=== PATIENT | female | born 1965 | race Caucasian/White ===

== ENCOUNTER 2022-04-01 16:29 | Emergency (ER) | payer OTHER, SELFPAY ==
--- NOTE | ~2022-04-01 | XR_ITS ---
EXAMINATION: XR FOOT, RIGHT CLINICAL INFORMATION: Toe pain COMPARISON: None TECHNIQUE: AP, lateral, and oblique views of the right foot. FINDINGS: The bones and soft tissues are normal. No fracture. Alignment is anatomic. Joint spaces are maintained. XR/XR foot RT 2V IMPRESSION: No acute osseous abnormality of the right foot
[2022-04-01 17:23] VITALS: BP 106/69; PULSE 86; RESP 18; TEMP 36.6; O2SAT 96; BMI 31.4
[2022-04-01] MEDS: Acetaminophen 325 MG TABLET 650 MG PO (17:32)
--- NOTE | 2022-04-01 19:24 | ED_ITS ---
HPI - Extremity Injury (Lower) General Chief Complaint: Extremity Injury, Lower Stated Complaint: ?Toe infection Time Seen by Provider: 04/01/22 19:21 Source: patient Mode of arrival: ambulatory Limitations: no limitations History of Present Illness HPI Narrative: This is a 56-year-old female presenting with redness and swelling around the right great toe, patient reports that the area has become red hot and swollen ever since yesterday. She reports that there is some pus around the nail, she tells me that she gets ingrown toenails. Also concerned because she is a diabetic. Denies fevers, chills, numbness, tingling, chest pain, shortness of breath, headache, dizziness, vision changes. Related Data Previous Rx's Medication Instructions Recorded cephalexin 500 mg tablet 500 mg PO Q6H 10 days #40 tabs 04/01/22 doxycycline hyclate 100 mg capsule 100 mg PO BID 10 days #20 caps 04/01/22 Allergies Allergy/AdvReac Type Severity Reaction Status Date / Time morphine Allergy Vomiting Verified 04/01/22 17:22 Penicillins Allergy Headache Verified 04/01/22 17:22 Review of Systems Review of Systems: Constitutional : No Weight loss, No Fever, No Chills, No Fatigue, No Malaise ENT/Mouth : No sore throat, No Rhinorrhea Eyes: No Eye Pain, No Swelling, No Redness Cardiovascular : No Chest Pain, No SOB, No Dyspnea on Exertion, No Orthopnea, No Edema, No Palpitations Respiratory : No Cough, No Sputum, No Wheezing Gastrointestinal : No Nausea, No Vomiting, No Diarrhea, No Constipation, No abdominal Pain, No Hematochezia, No Melena Genitourinary : No Dysuria, No Urinary Frequency, No Hematuria, Musculoskeletal : No joint pain, No Myalgias, No Joint Swelling Skin : No Skin Lesions, No rash, + redness of skin to toe Neuro : No Weakness, No Numbness, No Dizziness, No Headache Psych : No Anxiety/Panic, No Depression All other systems reviewed and are negative Yes all other systems are reviewed and are negative [facility] Past Medical History Attestation statement: The following information was validated with the patient. Source: old records reviewed and nursing notes reviewed Social History Social History Advance Directives: No Advance Directives Information Provided: No Physical Exam Vital Signs: Vital Signs: Last Vital Signs Temp 97.8 F 04/01/22 17:23 Pulse 86 04/01/22 17:23 Resp 18 04/01/22 17:23 BP 106/69 04/01/22 17:23 Pulse Ox 96 04/01/22 17:23 O2 Del Method 04/01/22 17:23 BMI result Body Mass Index 31.4 vss Appearance: Alert.? Oriented X3.? No acute distress.? Head: Normocephalic, atraumatic, no step-offs or deformities Eyes: Pupils equal, round and reactive to light.? CVS: Normal heart rate and rhythm.? Pulses normal.? Respiratory: No respiratory distress.? Breath sounds normal.? Abdomen: Soft and nontender.? Skin: Skin warm and dry.? Normal skin color.? Normal skin turgor.? Extremities: No lower extremity edema.? No calf ttp. 5/5 strength to bilateral upper and lower extremities 2+ DP,AT,PT pulses equal and bilater. + paronychia noted to right lower great toe, with overlying cellulitis. No evidence of abscess. Normal left foot. Full range of motion to all lower extremity toes. Normal sensation. Neuro: Oriented X 3.? No motor deficit.? No sensory deficit. CN 2-12 intact Course Reevaluation(s) Reevaluation #1: X-ray of the foot with no osseous abnormalities were of right foot no signs of osteomyelitis. At this time patient will be discharged home on 2 antibiotics Keflex and doxycycline advised to return with new or worsening symptoms, edu cated on worrisome signs and symptoms, verbalizes understanding. At this time I feel comfortable discharge home. Time: 19:25 MDM - Extremity Injury (Lower) [facility] Narrative Medical decision making narrative: 1925 56-year-old female presents with redness and swelling to the 1st great toe on the right. X2 days. Patient diabetic. Physical exam with paronychia an overlying cellulitis to the right great toe. Neurovascularly intact. History and physical examination consistent with cellulitis and paronychia. Unlikely that this is septic joint, osteomyelitis, DVT, arterial occlusion. Plan at this time is to obtain an x-ray. Medical Records Attestation: I reviewed the patient's medical records. Lab Data Attestation: I reviewed the patient's lab results. Critical Care Time Critical Care Time Critical Care Time: No Discharge Plan Discharge Clinical Impression: Acute paronychia of toe, Cellulitis Patient Disposition: Home, Self-Care Instructions: Paronychia (ED), Cellulitis (ED) Additional Instructions: Take your medications as prescribed. If you were prescribed antibiotics today, it is important that you take your medication to their entirety, do not skip any doses, do not finish them early. Follow-up with your primary care provider this week. Return to the emergency department with new or worsening symptoms. Such as fevers, chills, chest pain, shortness of breath, nausea, vomiting, dizziness, headache, vision changes, lethargy In case of emergency call 911 I educated on signs of infection such as worsening swelling, pain, redness, discharge, bleeding, if any of these arise you need to come to the emergency department for further evaluation and treatment. Your x-ray was reassuring. Apply warm compresses to the area do not touch the area. Since you are a diabetic I highly recommend you follow-up with Podiatry, it is important that you see them be careful cutting your own nails this can cause infections of you cut the skin. [place] [facility]ament[facility] seg?n lo prescrito. Si le recetaron antibi?ticos hoy, es importante que tome snow medicamento en snow totalidad, no se salte ninguna dosis, no los termine antes de tiempo. Seguimiento con snow proveedor de atenci?n primaria esta semana. Regrese al departamento de emergencias con s?ntomas nuevos o que empeoran. Mario fiebre, escalofr?os, dolor de pecho, dificultad para respirar, n?useas, v?mitos, mareos, dolor de nikolas, cambios en la visi?n, letargo En alvaro de emergencia llama al 911 Me educaron sobre los signos de infecci?n, mario el empeoramiento de la hinchaz?n, el dolor, el enrojecimiento, la secreci?n, el sangrado. Si surge alguno de estos, debe acudir al departamento de emergencias para desmond evaluaci?n y tratamiento adicionales. Tu radiograf?a fue tranquilizadora. Aplique compresas tibias en el ?sp, no toque el ?sp. Ya que usted es diab?ama le recomiendo que viviana un seguimiento con Podolog?a, es importante que los gita tenga cuidado al cortarse las u?as, esto puede causar infecciones en la piel. XR/XR foot RT 2V IMPRESSION: No acute osseous abnormality of the right foot Prescriptions: New doxycycline hyclate 100 mg capsule 100 mg PO BID 10 Days Qty: 20 0RF cephalexin 500 mg tablet 500 mg PO Q6H 10 Days Qty: 40 0RF Referrals: Physician,Zahira J [Primary Care Provider] - 2 days
--- OUTSIDE RECORDS SUMMARY | 2022-04-01 19:35 | XMS_ITS | Continuity of Care Document ---
:1965 Author Organization [facility] Address [address] [place] [address]- Care Team Providers Name Role Phone Zulay Peña Primary Care Physician Encounter [facility] [place] Date(s): 07/11/19 - 07/18/19 [facility] [address] [place] [address]- [facility] Attending Physician: Juan Antonio Paulson MD Referring Physician: Zulay Peña Allergies, Adverse Reactions, Alerts Substance Reaction Severity Status penicillin [D]Nausea Active morphine Dizziness/Vertigo Active Medications albuterol 90 mcg/inh inhalation powder 2 puffs, Inhalation, Every 6 hours, PRN as needed, # 1 each, 0 Refills, Maintenance, 06/16/19 11:18:00 EST, Powder, [facility] #[id number], 2 puffs Inhalation Every 6 hours,PRN:as needed, 158, cm,06/16/19 10:59:00 EST, Height, 81.8, kg, 06/16/19... Start Date: 06/16/19 Status: Orderedalbuterol CFC free 90 mcg/inh inhalation aerosol 2, puffs, Inhalation, Every 4 hours, PRN, # 1 each, Refills 0, Tot. Refills 0, Maintenance, 05/03/1912:15:50 EST, Aerosol, Route to Pharmacy Electronically, [id number], [facility] #[id number] Start Date: 05/03/19 Stop Date: 05/17/19 Status: Orderedalbuterol CFC free 90 mcg/inh inhalation aerosol 2, puffs, Inhalation, Every 4 hours, PRN, # 1 each, Refills 0, Tot. Refills 0, Maintenance, 05/31/1911:47:00 EST, Aerosol, Route to Pharmacy Electronically, [id number], [facility] #[id number], 158, cm, 05/31/19 11:15:00... Start Date: 05/31/19 Stop Date: 06/07/19 Status: Orderedalbuterol-ipratropium 3 mg-0.5 mg/3 ml inhalation solution 3 mL, Inhalation, 4 times a day, # 30 each, 0 Refills, Maintenance, 06/16/19 11:19:00 EST, Solution,[facility] #[id number], 3 mL Inhalation 4 times a day, 158, cm, 06/16/19 10:59:00 EST, Height, 81.8, kg, 06/16/19 10:59:00 EST, Dry Weight Start Date: 06/16/19 Status: Orderedalbuterol-ipratropium 3 mg-0.5 mg/3 ml inhalation solution 3 mL, Inhalation, 4 times a day, PRN Wheezing/Shortness of Breath, # 30 each, 0 Refills, Maintenance, 12/24/18 12:18:48 EDT, Solution, 3 mL Inhalation 4 times a day,PRN:Wheezing/Shortness of Breath Start Date: 12/24/18 Status: Orderedatorvastatin 40 mg oral tablet 1 tablet = 40 mg, By Mouth, Daily, # 30 tablet, 5 Refills, Maintenance, 07/16/19 13:29:00 EST, Tablet, [facility] #[id number], 158, cm, 07/11/19 10:20:00 EST, Height, 81.8, kg, 06/16/19 10:59:00 EST, Dry Weight Start Date: 07/16/19 Status: Orderedfluocinonide 0.05% topical cream 1 applicator, Topically, 3 times a day, apply a thin film to affected area, # 15 Gm, 0 Refills, Maintenance, 12/24/18 12:19:41 EDT, 1 applicator Topically 3 times a day,Instr:apply a thin film; to affected area Start Date: 12/24/18 Status: Orderedinsulin glargine 100 u/ml subcutaneous solution See Instructions, 40 units Subcutaneous Injection Daily, # 15 mL, 2 Refills, Maintenance, 07/16/19 15:18:00 EST, Solution, [facility] #[id number], 158, cm, 07/11/19 10:20:00 EST, Height, 81.8, kg,06/16/19 10:59:00 EST, Dry Weight Start Date: 07/16/19 Status: Orderedinsulin lispro 100 u/ml subcutaneous injection See Instructions, 2 to 10 units Subcutaneous Injection 3 times a day before meals, 0 Refills, Maintenance, 08/05/18 14:39:41 EST, Solution Start Date: 08/05/18 Status: OrderedJanuvia 100 mg oral tablet 1 tablet = 100 mg, By Mouth, Daily, # 30 tablet, 3 Refills, Maintenance, 05/21/19 14:12:33 EST, Tablet, 158, cm, 05/03/19 11:23:20 EST, Height, 77.2, kg, 05/03/19 11:23:20 EST, Dry Weight Start Date: 05/21/19 Status: OrderedLantus 100 u/ml subcutaneous solution See Instructions, Subcutaneous Infusion Daily rotate injection sites, # 15 mL, 0 Refills, Maintenance, 07/16/19 13:29:00 EST, [facility] #[id number], 158, cm, 07/11/19 10:20:00 EST, Height, 81.8, kg, 06/16/19 10:59:00 EST, Dry Weight Start Date: 07/16/19 Status: OrderedLantus Solostar Pen 100 units/mL subcutaneous solution 70 unit, Subcutaneous Infusion, Daily, # 15 mL, 11 Refills, Maintenance, 07/18/19 9:56:00 EST, [facility] #[id number], 158, cm, 07/11/19 10:20:00 EST, Height, 81.8, kg, 06/16/19 10:59:00 EST, Dry Weight Start Date: 07/18/19 Status: Orderedlisinopril 5 mg oral tablet 1 tablet = 5 mg, By Mouth, Daily, 0 Refills, Maintenance Start Date: 06/25/13 Status: Ordered Vital Signs Most recent to oldest [Reference Range]: 1 Height 158 cm (07/11/19 10:20 AM) Oxygen Saturation [94-100 %] 100 % (07/11/19 10:20 AM) Pulse Rate [55-90 bpm] 98 bpm *H* (07/11/19 10:20 AM) Blood Pressure [90-138/55-84 mm Hg] 123/86 mm Hg (07/11/19 10:20 AM) Respiratory Rate [16-30 br/min] 20 br/min (07/11/19 10:20 AM) Temperature [96.8-100.4 DegF] 97.8 DegF (07/11/19 10:20 AM) Mode of Delivery (Oxygen) Room air (07/11/19 10:20 AM) Blood pressure sites Arm, left (07/11/19 10:20 AM) Temperature Route Oral (07/11/19 10:20 AM) Weight Obtained Via Standing scale (07/11/19 10:20 AM) Dry Weight Obtained Via Standing scale (07/11/19 10:20 AM) Social History Social History Type Response Smoking Status Never (less than 100 in life time) entered on: 08/05/18 Sex
--- OUTSIDE RECORDS SUMMARY | 2022-04-01 19:35 | XMS_ITS | Continuity of Care Document ---
:1965 Author Organization [facility] Address [address] [place] [address]- Care Team Providers Name Role Phone Zulay Peña [id number] - [facility]08[facility]20 [facility] [address], [place] [address] Attending Physician: Maryam Reyez MD Referring Physician: Zulay Peña Allergies, Adverse Reactions, Alerts Substance Reaction Severity Status penicillin [D]Nausea Active morphine Dizziness/Vertigo Active Medications albuterol 90 mcg/inh inhalation powder 2 puffs, Inhalation, Every 6 hours, PRN as needed, # 1 each, 0 Refills, Maintenance, 06/16/19 11:18:00 EST, Powder, [facility] #[id number], 2 puffs Inhalation Every 6 hours,PRN:as needed, 158, cm,06/16/19 10:59:00 EST, Height, 81.8, kg, 06/16/19... Start Date: 06/16/19 Status: Orderedalbuterol CFC free 90 mcg/inh inhalation aerosol 2, puffs, Inhalation, Every 4 hours, PRN, # 1 each, Refills 0, Tot. Refills 0, Maintenance, 05/03/1912:15:50 EST, Aerosol, Route to Pharmacy Electronically, [id number], [facility] #[id number] Start Date: 05/03/19 Stop Date: 05/17/19 Status: Orderedalbuterol CFC free 90 mcg/inh inhalation aerosol 2, puffs, Inhalation, Every 4 hours, PRN, # 1 each, Refills 0, Tot. Refills 0, Maintenance, 05/31/1911:47:00 EST, Aerosol, Route to Pharmacy Electronically, [id number], [facility] #[id number], 158, cm, 05/31/19 11:15:00... Start Date: 05/31/19 Stop Date: 06/07/19 Status: Orderedalbuterol-ipratropium 3 mg-0.5 mg/3 ml inhalation solution 3 mL, Inhalation, 4 times a day, # 30 each, 0 Refills, Maintenance, 06/16/19 11:19:00 EST, Solution,[facility] #[id number], 3 mL Inhalation 4 times a day, [...] 5 Refills, Maintenance, 07/16/19 13:29:00 EST, Tablet, [facility] #[id number], 158, cm, 07/11/19 10:20:00 EST, Height, 81.8, kg, 06/16/19 10:59:00 EST, Dry Weight Start Date: 07/16/19 Status: Orderedcetirizine-pseudoephedrine 5 mg-120 mg oral tablet, extended release 1 tablet, By Mouth, 2 times a day, PRN as needed for congestion, # 30 tablet, 0 Refills, Maintenance, 08/20/19 19:29:00 EDT, ER Tablet, [facility] #[id number], 1 tablet By Mouth 2 times a day,PRN:as needed for congestion, 158, cm, 08/20/19 19:07:... Start Date: 08/20/19 Status: OrderedFlonase 50 mcg/inh nasal spray 1 sprays, Nares, Both, 2 times a day, # 16 Gm, 0 Refills, Maintenance, 08/01/20 13:39:00 EST, [place] #[id number], Partial fill upon patient request if the prescription is for a scheduleII opioid drug., 1 sprays Nares, Both 2 times a d... Start Date: 08/01/20 Status: Orderedfluocinonide 0.05% topical cream 1 applicator, Topically, 3 times a day, apply a thin film to affected area, # 15 Gm, 0 Refills, Maintenance, 12/24/18 12:19:41 EDT, 1 applicator Topically 3 times a day,Instr:apply a thin film; to affected area Start Date: 12/24/18 Status: Orderedfluticasone 50 mcg/inh nasal spray 1 sprays, Nares, Both, Daily in AM, # 16 Gm, 0 Refills, Maintenance, 08/20/19 19:28:00 EDT, [place], [facility] #[id number], 1 sprays Nares, Both Daily in AM, 158, cm, 08/20/19 19:07:00 EDT, Height,83.5, kg, 08/20/19 19:07:00 EDT, Dry Weight Start Date: 08/20/19 Status: Orderedinsulin glargine 100 u/ml subcutaneous solution See Instructions, 40 units Subcutaneous Injection Daily, # 15 mL, 2 Refills, Maintenance, 07/16/19 15:18:00 EST, Solution, [facility] #[id number], 158, cm, 07/11/19 10:20:00 EST, Height, 81.8, [...] Daily, # 30 tablet, 3 Refills, Maintenance, 10/31/19 19:17:00 EDT, Tablet, [facility] #[id number], 158, cm, 09/05/19 10:23:00 EDT, Height, 83.5, kg, 08/20/19 19:07:00 EDT, Dry Weight Start Date: 10/31/19 Status: OrderedLantus 100 u/ml subcutaneous solution See Instructions, Subcutaneous Infusion Daily rotate injection sites, # 15 mL, 0 Refills, Maintenance, 07/16/19 13:29:00 EST, [facility] #[id number], 158, cm, 07/11/19 10:20:00 EST, Height, 81.8, kg, 06/16/19 10:59:00 EST, Dry Weight Start Date: 07/16/19 Status: OrderedLantus Solostar Pen 100 units/mL subcutaneous solution 70 unit, Subcutaneous Infusion, Daily, # 15 mL, 11 Refills, Maintenance, 10/31/19 19:17:00 EDT, [facility] #[id number], 158, cm, 09/05/19 10:23:00 EDT, Height, 83.5, kg, 08/20/19 19:07:00 EDT, DryWeight Start Date: 10/31/19 Status: Orderedlisinopril 5 mg oral tablet 1 tablet = 5 mg, By Mouth, Daily, 0 Refills, Maintenance Start Date: 06/25/13 Status: OrderedZithromax 250 mg oral tablet 1 pack/packet, By Mouth, Once, # 6 tablet, 0 Refills, Soft Stop, 08/01/20 13:39:00 EST, Tablet, [facility] #[id number], Partial fill upon patient request if the prescription is for a schedule II opioid drug., 158, cm, 08/01/20 13:03:00 EST, He[place]... Start Date: 08/01/20 Status: Ordered Vital Signs Most recent to oldest [Reference Range]: 1 Height 158 cm (08/01/20 1:03 PM) Oxygen Saturation [94-100 %] 100 % (08/01/20 1:03 PM) Pulse Rate [55-90 bpm] 94 bpm *H* (08/01/20 1:03 PM) Blood Pressure [90-138/55-84 mm Hg] 93/74 mm Hg (08/01/20 1:03 PM) Respiratory Rate [16-30 br/min] 16 br/min (08/01/20 1:03 PM) Temperature [96.8-100.4 DegF] 96.9 DegF (08/01/20 1:03 PM) Mode of Delivery (Oxygen) Room air (08/01/20 1:03 PM) Blood pressure sites Arm, left (08/01/20 1:03 PM) Temperature Route Temporal (08/01/20 1:03 PM) Social History Social History Type Response Smoking Status Never (less than 100 in life time) entered on: 08/05/18 Sex
--- OUTSIDE RECORDS SUMMARY | 2022-04-01 19:35 | XMS_ITS | Continuity of Care Document ---
:1965 Author Organization [facility] pt Address [address] [place] [address]- Care Team Providers Name Role Phone Zulay Peña Primary Care Physician Encounter [facility] [place] Date(s): 08/23/20 - 08/30/20 [facility] [address] [place] [address]- Encounter Diagnosis Sinusitis nasal (Discharge Diagnosis) - 08/23/20 Attending Physician: Not on Staff, Attending MD Referring Physician: Zulay Peña Allergies, Adverse Reactions, Alerts Substance Reaction Severity Status penicillin [D]Nausea Active morphine Dizziness/Vertigo Active Medications albuterol 90 mcg/inh inhalation powder 2 puffs, Inhalation, Every 6 hours, PRN as needed, # 1 each, 0 Refills, Maintenance, 06/16/19 11:18:00 EST, Powder, [facility] #[id number], 2 puffs Inhalation Every 6 hours,PRN:as needed, 158, cm,06/16/19 10:59:00 EST, Height, 81.8, kg, 06/16/19... Start Date: 06/16/19 Status: Orderedalbuterol CFC free 90 mcg/inh inhalation aerosol 2, puffs, Inhalation, Every 4 hours, PRN, # 1 each, Refills 0, Tot. Refills 0, Maintenance, 05/03/1912:15:50 EST, Aerosol, Route to Pharmacy Electronically, [id number], [facility] #[id number] Start Date: 05/03/19 Stop Date: 05/17/19 Status: Orderedalbuterol CFC free 90 mcg/inh inhalation aerosol 2, puffs, Inhalation, Every 4 hours, PRN, # 1 each, Refills 0, Tot. Refills 0, Maintenance, 05/31/1911:47:00 EST, Aerosol, Route to Pharmacy Electronically, [id number], [facility] #[id number], 158, cm, 05/31/19 11:15:00... Start Date: 05/31/19 Stop Date: 06/07/19 Status: Orderedalbuterol-ipratropium 3 mg-0.5 mg/3 ml inhalation solution 3 mL, Inhalation, 4 times a day, # 30 each, 0 Refills, Maintenance, 06/16/19 11:19:00 EST, Solution,[facility] #[id number], 3 mL Inhalation 4 times a day, [...] 5 Refills, Maintenance, 07/16/19 13:29:00 EST, Tablet, [facility] #[id number], 158, cm, 07/11/19 10:20:00 EST, Height, 81.8, kg, 06/16/19 10:59:00 EST, Dry Weight Start Date: 07/16/19 Status: Orderedcetirizine-pseudoephedrine 5 mg-120 mg oral tablet, extended release 1 tablet, By Mouth, 2 times a day, PRN as needed for congestion, # 30 tablet, 0 Refills, Maintenance, 08/20/19 19:29:00 EDT, ER Tablet, [facility] #[id number], 1 tablet By Mouth 2 times a day,PRN:as needed for congestion, 158, cm, 08/20/19 19:07:... Start Date: 08/20/19 Status: OrderedFlonase 50 mcg/inh nasal spray 1 sprays, Nares, Both, 2 times a day, # 16 Gm, 0 Refills, Maintenance, 08/01/20 13:39:00 EST, [place] #[id number], Partial fill upon patient request if the [...] Gm, 0 Refills, Maintenance, 08/20/19 19:28:00 EDT, [place] #[id number], 1 sprays Nares, Both Daily in AM, 158, cm, 08/20/19 19:07:00 EDT, Height,83.5, kg, 08/20/19 19:07:00 EDT, Dry Weight Start Date: 08/20/19 Status: Orderedinsulin glargine 100 u/ml subcutaneous solution See Instructions, 40 units Subcutaneous Injection Daily, # 15 mL, 2 Refills, Maintenance, 07/16/19 15:18:00 EST, Solution, [facility] #[id number], 158, cm, 07/11/19 10:20:00 EST, Height, 81.8, [...] 3 Refills, Maintenance, 10/31/19 19:17:00 EDT, Tablet, [facility] #[id number], 158, cm, 09/05/19 10:23:00 EDT, Height, 83.5, kg, 08/20/19 19:07:00 EDT, Dry Weight Start Date: 10/31/19 Status: OrderedLantus 100 u/ml subcutaneous solution See Instructions, Subcutaneous Infusion Daily rotate injection sites, # 15 mL, 0 Refills, Maintenance, 07/16/19 13:29:00 EST, [facility] #[id number], 158, cm, 07/11/19 10:20:00 EST, Height, 81.8, kg, 06/16/19 10:59:00 EST, Dry Weight Start Date: 07/16/19 Status: OrderedLantus Solostar Pen 100 units/mL subcutaneous solution 70 unit, Subcutaneous Infusion, Daily, # 15 mL, 11 Refills, Maintenance, 10/31/19 19:17:00 EDT, [facility] #[id number], 158, cm, 09/05/19 10:23:00 EDT, Height, 83.5, kg, 08/20/19 19:07:00 EDT, DryWeight Start Date: 10/31/19 Status: Orderedlisinopril 5 mg oral tablet 1 tablet = 5 mg, By Mouth, Daily, 0 Refills, Maintenance Start Date: 06/25/13 Status: OrderedZithromax 250 mg oral tablet 1 pack/packet, By Mouth, Once, # 6 tablet, 0 Refills, Soft Stop, 08/01/20 13:39:00 EST, Tablet, [facility] #[id number], Partial fill upon patient request if the prescription is for a schedule II opioid drug., 158, cm, 08/01/20 13:03:00 EST, Heigh... Start Date: 08/01/20 Status: Ordered Problem List Diagnosis Diagnosis Type Effective Dates Health Status Clinical In formant Service Sinusitis nasal Discharge 08/23/20 Diagnosis Social History Social History Type Response Smoking Status Never (less than 100 in life time) entered on: 08/05/18 Sex
--- OUTSIDE RECORDS SUMMARY | 2022-04-01 19:35 | XMS_ITS | Continuity of Care Document ---
:1965 Author Organization [facility] Address [address] [place] [address]- Care Team Providers Name Role Phone Zulay Peña Primary Care Physician Encounter [facility] Date(s): 01/25/22 - 02/24/22 [facility] [address] [place], [place] [address] Attending Physician: Alexis Sierra Admitting Physician: Alexis Sierra Referring Physician: [email or web address] Referring Physician: Janna Garner Allergies, Adverse Reactions, Alerts Substance Reaction Severity Status penicillin [D]Nausea Active morphine Dizziness/Vertigo Active Medications albuterol 90 mcg/inh inhalation powder 2 puffs, Inhalation, Every 6 hours, PRN as needed, # 1 each, 0 Refills, Maintenance, 06/16/19 11:18:00 EST, Powder, [facility] #[id number], 2 puffs Inhalation Every 6 hours,PRN:as needed, 158, cm,06/16/19 10:59:00 EST, Height, 81.8, kg, 06/16/19... Start Date: 06/16/19 Status: Orderedalbuterol CFC free 90 mcg/inh inhalation aerosol 2, puffs, Inhalation, Every 4 hours, PRN, # 1 each, Refills 0, Tot. Refills 0, Maintenance, 05/03/1912:15:50 EST, Aerosol, Route to Pharmacy Electronically, [id number], [facility] #[id number] Start Date: 05/03/19 Stop Date: 05/17/19 Status: Orderedalbuterol CFC free 90 mcg/inh inhalation aerosol 2, puffs, Inhalation, Every 4 hours, PRN, # 1 each, Refills 0, Tot. Refills 0, Maintenance, 05/31/1911:47:00 EST, Aerosol, Route to Pharmacy Electronically, [id number], [facility] #[id number], 158, cm, 05/31/19 11:15:00... Start Date: 05/31/19 Stop Date: 06/07/19 Status: Orderedalbuterol-ipratropium 3 mg-0.5 mg/3 ml inhalation solution 3 mL, Inhalation, 4 times a day, # 30 each, 0 Refills, Maintenance, 06/16/19 11:19:00 EST, Solution,[facility] #74052, 3 mL Inhalation 4 times a day, [...] 5 Refills, Maintenance, 07/16/19 13:29:00 EST, Tablet, [facility] #[id number], 158, cm, 07/11/19 10:20:00 EST, Height, 81.8, kg, 06/16/19 10:59:00 EST, Dry Weight Start Date: 07/16/19 Status: Orderedcetirizine-pseudoephedrine 5 mg-120 mg oral tablet, extended release 1 tablet, By Mouth, 2 times a day, PRN as needed for congestion, # 30 tablet, 0 Refills, Maintenance, 08/20/19 19:29:00 EDT, ER Tablet, [facility] #[id number], 1 tablet By Mouth 2 times a day,PRN:as needed for congestion, 158, cm, 08/20/19 19:07:... Start Date: 08/20/19 Status: Ordereddiclofenac sodium 75 mg oral delayed release tablet 1 tablet = 75 mg, By Mouth, 2 times a day, # 60 tablet, 0 Refills, Maintenance, 01/25/22 12:40:00 EDT, EC Tablet, [facility] #[id number], Partial fill upon patient request if the prescription is for a schedule II opioid drug., 158, cm, 01/25/22 1... Start Date: 01/25/22 Status: OrderedFlonase 50 mcg/inh nasal spray 1 sprays, Nares, Both, 2 times a day, # 16 Gm, 0 Refills, Maintenance, 08/01/20 13:39:00 EST, [place],[facility] #[id number], Partial fill upon patient request if the [...] Gm, 0 Refills, Maintenance, 08/20/19 19:28:00 EDT, [place], [facility] #87503, 1 sprays Nares, Both Daily in AM, 158, cm, 08/20/19 19:07:00 EDT, Height,83.5, kg, 08/20/19 19:07:00 EDT, Dry Weight Start Date: 08/20/19 Status: Orderedinsulin glargine 100 u/ml subcutaneous solution See Instructions, 40 units Subcutaneous Injection Daily, # 15 mL, 2 Refills, Maintenance, 07/16/19 15:18:00 EST, Solution, [facility] #[id number], 158, cm, 07/11/19 10:20:00 EST, Height, 81.8, [...] 3 Refills, Maintenance, 10/31/19 19:17:00 EDT, Tablet, [facility] #06400, 158, cm, 09/05/19 10:23:00 EDT, Height, 83.5, kg, 08/20/19 19:07:00 EDT, Dry Weight Start Date: 10/31/19 Status: OrderedLantus 100 u/ml subcutaneous solution See Instructions, Subcutaneous Infusion Daily rotate injection sites, # 15 mL, 0 Refills, Maintenance, 07/16/19 13:29:00 EST, [facility] #[id number], 158, cm, 07/11/19 10:20:00 EST, Height, 81.8, kg, 06/16/19 10:59:00 EST, Dry Weight Start Date: 07/16/19 Status: OrderedLantus Solostar Pen 100 units/mL subcutaneous solution 70 unit, Subcutaneous Infusion, Daily, # 15 mL, 11 Refills, Maintenance, 10/31/19 19:17:00 EDT, [facility] #68704, 158, cm, 09/05/19 10:23:00 EDT, Height, 83.5, kg, 08/20/19 19:07:00 EDT, DryWeight Start Date: 10/31/19 Status: Orderedlisinopril 5 mg oral tablet 1 tablet = 5 mg, By Mouth, Daily, 0 Refills, Maintenance Start Date: 06/25/13 Status: OrderedZithromax 250 mg oral tablet 1 pack/packet, By Mouth, Once, # 6 tablet, 0 Refills, Soft Stop, 08/01/20 13:39:00 EST, Tablet, [facility] #21429, Partial fill upon patient request if the prescription is for a schedule II opioid drug., 158, cm, 08/01/20 13:03:00 Jordan EMMANUEL. Start Date: 08/01/20 Status: Ordered Social History Social History Type Response Smoking Status Never (less than 100 in life time) entered on: 08/05/18 Sex Care Team PersonnelName: Zulay Peña Address: [address] [place] [address]
--- OUTSIDE RECORDS SUMMARY | 2022-04-01 19:35 | XMS_ITS | Continuity of Care Document ---
:1965 Author Organization [facility] Address [address] [place] [address]- Care Team Providers Name Role Phone Zulay Peña Primary Care Physician En[place] [facility] Date(s): 05/20/21 - 06/19/21 [facility] [address] [place], [place] [address] Attending Physician: Alexis Sierra Admitting Physician: AdmtrAlexis Referring Physician: tr, [email or web address] Referring Physician: Janan Garner Allergies, Adverse Reactions, Alerts Substance Reaction Severity Status penicillin [D]Nausea Active morphine Dizziness/Vertigo Active Medications albuterol 90 mcg/inh inhalation powder 2 puffs, Inhalation, Every 6 hours, PRN as needed, # 1 each, 0 Refills, Maintenance, 06/16/19 11:18:00 EST, Powder, [facility] #68117, 2 puffs Inhalation Every 6 hours,PRN:as needed, 158, cm,06/16/19 10:59:00 EST, Height, 81.8, kg, 06/16/19... Start Date: 06/16/19 Status: Orderedalbuterol CFC free 90 mcg/inh inhalation aerosol 2, puffs, Inhalation, Every 4 hours, PRN, # 1 each, Refills 0, Tot. Refills 0, Maintenance, 05/03/1912:15:50 EST, Aerosol, Route to Pharmacy Electronically, [id number], [facility] #[id number] Start Date: 05/03/19 Stop Date: 05/17/19 Status: Orderedalbuterol CFC free 90 mcg/inh inhalation aerosol 2, puffs, Inhalation, Every 4 hours, PRN, # 1 each, Refills 0, Tot. Refills 0, Maintenance, 05/31/1911:47:00 EST, Aerosol, Route to Pharmacy Electronically, [id number], [facility] #96797, 158, cm, 05/31/19 11:15:00... Start Date: 05/31/19 Stop Date: 06/07/19 Status: Orderedalbuterol-ipratropium 3 mg-0.5 mg/3 ml inhalation solution 3 mL, Inhalation, 4 times a day, # 30 each, 0 Refills, Maintenance, 06/16/19 11:19:00 EST, [place],[facility] #15108, 3 mL Inhalation 4 times a day, [...] 5 Refills, Maintenance, 07/16/19 13:29:00 EST, Tablet, [facility] #70601, 158, cm, 07/11/19 10:20:00 EST, Height, 81.8, kg, 06/16/19 10:59:00 EST, Dry Weight Start Date: 07/16/19 Status: Orderedcetirizine-pseudoephedrine 5 mg-120 mg oral tablet, extended release 1 tablet, By Mouth, 2 times a day, PRN as needed for congestion, # 30 tablet, 0 Refills, Maintenance, 08/20/19 19:29:00 EDT, ER Tablet, [facility] #51973, 1 tablet By Mouth 2 times a day,PRN:as needed for congestion, 158, cm, 08/20/19 19:07:... Start Date: 08/20/19 Status: OrderedFlonase 50 mcg/inh nasal spray 1 sprays, Nares, Both, 2 times a day, # 16 Gm, 0 Refills, Maintenance, 08/01/20 13:39:00 EST, [place],[facility] #28697, Partial fill upon patient request if the [...] Gm, 0 Refills, Maintenance, 08/20/19 19:28:00 EDT, [place], [facility] #07789, 1 sprays Nares, Both Daily in AM, 158, cm, 08/20/19 19:07:00 EDT, Height,83.5, kg, 08/20/19 19:07:00 EDT, Dry Weight Start Date: 08/20/19 Status: Orderedinsulin glargine 100 u/ml subcutaneous solution See Instructions, 40 units Subcutaneous Injection Daily, # 15 mL, 2 Refills, Maintenance, 07/16/19 15:18:00 EST, Solution, [facility] #31614, 158, cm, 07/11/19 10:20:00 EST, Height, 81.8, [...] 3 Refills, Maintenance, 10/31/19 19:17:00 EDT, Tablet, [facility] #09146, 158, cm, 09/05/19 10:23:00 EDT, Height, 83.5, kg, 08/20/19 19:07:00 EDT, Dry Weight Start Date: 10/31/19 Status: OrderedLantus 100 u/ml subcutaneous solution See Instructions, Subcutaneous Infusion Daily rotate injection sites, # 15 mL, 0 Refills, Maintenance, 07/16/19 13:29:00 EST, [facility] #30570, 158, cm, 07/11/19 10:20:00 EST, Height, 81.8, kg, 06/16/19 10:59:00 EST, Dry Weight Start Date: 07/16/19 Status: OrderedLantus Solostar Pen 100 units/mL subcutaneous solution 70 unit, Subcutaneous Infusion, Daily, # 15 mL, 11 Refills, Maintenance, 10/31/19 19:17:00 EDT, [facility] #26276, 158, cm, 09/05/19 10:23:00 EDT, Height, 83.5, kg, 08/20/19 19:07:00 EDT, DryWeight Start Date: 10/31/19 Status: Orderedlisinopril 5 mg oral tablet 1 tablet = 5 mg, By Mouth, Daily, 0 Refills, Maintenance Start Date: 06/25/13 Status: OrderedZithromax 250 mg oral tablet 1 pack/packet, By Mouth, Once, # 6 tablet, 0 Refills, Soft Stop, 08/01/20 13:39:00 EST, Tablet, [facility] #78970, Partial fill upon patient request if the prescription is for a schedule II opioid drug., 158, cm, 08/01/20 13:03:00 EST, [place]... Start Date: 08/01/20 Status: Ordered Social History Social History Type Response Smoking Status Never (less than 100 in life time) entered on: 08/05/18 Sex
--- OUTSIDE RECORDS SUMMARY | 2022-04-01 19:35 | XMS_ITS | Continuity of Care Document ---
:1965 Author Organization [facility] Address [address] [place] [address]- Care Team Providers Name Role Phone Zulay Peña Primary Care Physician Encounter [facility] [id number] Date(s): 10/31/19 - 11/30/19 [facility]/[address] [address]- [facility] Attending Physician: Admtr, Alexis Admitting Physician: Admtr, Alexis Referring Physician: Admtr, Ar8 Allergies, Adverse Reactions, Alerts Substance Reaction Severity Status penicillin [D]Nausea Active morphine Dizziness/Vertigo Active Medications albuterol 90 mcg/inh inhalation powder 2 puffs, Inhalation, Every 6 hours, PRN as needed, # 1 each, 0 Refills, Maintenance, 06/16/19 11:18:00 EST, Powder, [facility] #54493, 2 puffs Inhalation Every 6 hours,PRN:as needed, 158, cm,06/16/19 10:59:00 EST, Height, 81.8, kg, 06/16/19... Start Date: 06/16/19 Status: Orderedalbuterol CFC free 90 mcg/inh inhalation aerosol 2, puffs, Inhalation, Every 4 hours, PRN, # 1 each, Refills 0, Tot. Refills 0, Maintenance, 05/03/1912:15:50 EST, Aerosol, Route to Pharmacy Electronically, [id number], [facility] #[id number] Start Date: 05/03/19 Stop Date: 05/17/19 Status: Orderedalbuterol CFC free 90 mcg/inh inhalation aerosol 2, puffs, Inhalation, Every 4 hours, PRN, # 1 each, Refills 0, Tot. Refills 0, Maintenance, 05/31/1911:47:00 EST, Aerosol, Route to Pharmacy Electronically, [id number], [facility] #34107, 158, cm, 05/31/19 11:15:00... Start Date: 05/31/19 Stop Date: 06/07/19 Status: Orderedalbuterol-ipratropium 3 mg-0.5 mg/3 ml inhalation solution 3 mL, Inhalation, 4 times a day, # 30 each, 0 Refills, Maintenance, 06/16/19 11:19:00 EST, Solution,[facility] #57329, 3 mL Inhalation 4 times a day, [...] 5 Refills, Maintenance, 07/16/19 13:29:00 EST, Tablet, [facility] #05282, 158, cm, 07/11/19 10:20:00 EST, Height, 81.8, kg, 06/16/19 10:59:00 EST, Dry Weight Start Date: 07/16/19 Status: Orderedcetirizine-pseudoephedrine 5 mg-120 mg oral tablet, extended release 1 tablet, By Mouth, 2 times a day, PRN as needed for congestion, # 30 tablet, 0 Refills, Maintenance, 08/20/19 19:29:00 EDT, ER Tablet, [facility] #12013, 1 tablet By Mouth 2 times a day,PRN:as needed for congestion, 158, cm, 08/20/19 19:07:... Start Date: 08/20/19 Status: Orderedfluocinonide 0.05% topical cream 1 applicator, [...] Gm, 0 Refills, Maintenance, 08/20/19 19:28:00 EDT, [place], [facility] #29999, 1 sprays Nares, Both Daily in AM, 158, cm, 08/20/19 19:07:00 EDT, Height,83.5, kg, 08/20/19 19:07:00 EDT, Dry Weight Start Date: 08/20/19 Status: Orderedinsulin glargine 100 u/ml subcutaneous solution See Instructions, 40 units Subcutaneous Injection Daily, # 15 mL, 2 Refills, Maintenance, 07/16/19 15:18:00 EST, Solution, [facility] #56428, 158, cm, 07/11/19 10:20:00 EST, Height, 81.8, [...] 3 Refills, Maintenance, 10/31/19 19:17:00 EDT, Tablet, [facility] #50497, 158, cm, 09/05/19 10:23:00 EDT, Height, 83.5, kg, 08/20/19 19:07:00 EDT, Dry Weight Start Date: 10/31/19 Status: OrderedLantus 100 u/ml subcutaneous solution See Instructions, Subcutaneous Infusion Daily rotate injection sites, # 15 mL, 0 Refills, Maintenance, 07/16/19 13:29:00 EST, [facility] #58779, 158, cm, 07/11/19 10:20:00 EST, Height, 81.8, kg, 06/16/19 10:59:00 EST, Dry Weight Start Date: 07/16/19 Status: OrderedLantus Solostar Pen 100 units/mL subcutaneous solution 70 unit, Subcutaneous Infusion, Daily, # 15 mL, 11 Refills, Maintenance, 10/31/19 19:17:00 EDT, [facility] #86104, 158, cm, 09/05/19 10:23:00 EDT, Height, 83.5, kg, 08/20/19 19:07:00 EDT, DryWeight Start Date: 10/31/19 Status: Orderedlisinopril 5 mg oral tablet 1 tablet = 5 mg, By Mouth, Daily, 0 Refills, Maintenance Start Date: 06/25/13 Status: Ordered Social History Social History Type Response Smoking Status Never (less than 100 in life time) entered on: 08/05/18 Sex
--- OUTSIDE RECORDS SUMMARY | 2022-04-01 19:35 | XMS_ITS | Continuity of Care Document ---
:1965 Author Organization [facility] Address [address] [place] [address]- Care Team Providers Name Role Phone Zulay Peña Primary Care Physician Encounter [facility] Date(s): 12/12/19 - 12/19/19 [facility] [address] [place] [address]- [facility] Encounter Diagnosis Pharyngitis (Discharge Diagnosis) - 12/12/19 Attending Physician: Lorene VELASQUEZ, Juan Antonio Suazo Referring Physician: Zulay Peña Allergies, Adverse Reactions, Alerts Substance Reaction Severity Status penicillin [D]Nausea Active morphine Dizziness/Vertigo Active Medications albuterol 90 mcg/inh inhalation powder 2 puffs, Inhalation, Every 6 hours, PRN as needed, # 1 each, 0 Refills, Maintenance, 06/16/19 11:18:00 EST, Powder, [facility] #38265, 2 puffs Inhalation Every 6 hours,PRN:as needed, 158, cm,06/16/19 10:59:00 EST, Height, 81.8, kg, 06/16/19... Start Date: 06/16/19 Status: Orderedalbuterol CFC free 90 mcg/inh inhalation aerosol 2, puffs, Inhalation, Every 4 hours, PRN, # 1 each, Refills 0, Tot. Refills 0, Maintenance, 05/03/1912:15:50 EST, Aerosol, Route to Pharmacy Electronically, [id number], [facility] #[id number] Start Date: 05/03/19 Stop Date: 05/17/19 Status: Orderedalbuterol CFC free 90 mcg/inh inhalation aerosol 2, puffs, Inhalation, Every 4 hours, PRN, # 1 each, Refills 0, Tot. Refills 0, Maintenance, 05/31/1911:47:00 EST, Aerosol, Route to Pharmacy Electronically, [id number], [facility] #80687, 158, cm, 05/31/19 11:15:00... Start Date: 05/31/19 Stop Date: 06/07/19 Status: Orderedalbuterol-ipratropium 3 mg-0.5 mg/3 ml inhalation solution 3 mL, Inhalation, 4 times a day, # 30 each, 0 Refills, Maintenance, 06/16/19 11:19:00 EST, Solution,[facility] #18639, 3 mL Inhalation 4 times a day, [...] 5 Refills, Maintenance, 07/16/19 13:29:00 EST, Tablet, [facility] #27076, 158, cm, 07/11/19 10:20:00 EST, Height, 81.8, kg, 06/16/19 10:59:00 EST, Dry Weight Start Date: 07/16/19 Status: Orderedcetirizine-pseudoephedrine 5 mg-120 mg oral tablet, extended release 1 tablet, By Mouth, 2 times a day, PRN as needed for congestion, # 30 tablet, 0 Refills, Maintenance, 08/20/19 19:29:00 EDT, ER Tablet, [facility] #09260, 1 tablet By Mouth 2 times a [...] Gm, 0 Refills, Maintenance, 08/20/19 19:28:00 EDT, [place], [facility] #55269, 1 sprays Nares, Both Daily in AM, 158, cm, 08/20/19 19:07:00 EDT, Height,83.5, kg, 08/20/19 19:07:00 EDT, Dry Weight Start Date: 08/20/19 Status: Orderedinsulin glargine 100 u/ml subcutaneous solution See Instructions, 40 units Subcutaneous Injection Daily, # 15 mL, 2 Refills, Maintenance, 07/16/19 15:18:00 EST, Solution, [facility] #42358, 158, cm, 07/11/19 10:20:00 EST, Height, 81.8, [...] 3 Refills, Maintenance, 10/31/19 19:17:00 EDT, Tablet, [facility] #19361, 158, cm, 09/05/19 10:23:00 EDT, Height, 83.5, kg, 08/20/19 19:07:00 EDT, Dry Weight Start Date: 10/31/19 Status: OrderedLantus 100 u/ml subcutaneous solution See Instructions, Subcutaneous Infusion Daily rotate injection sites, # 15 mL, 0 Refills, Maintenance, 07/16/19 13:29:00 EST, [facility] #12868, 158, cm, 07/11/19 10:20:00 EST, Height, 81.8, kg, 06/16/19 10:59:00 EST, Dry Weight Start Date: 07/16/19 Status: OrderedLantus Solostar Pen 100 units/mL subcutaneous solution 70 unit, Subcutaneous Infusion, Daily, # 15 mL, 11 Refills, Maintenance, 10/31/19 19:17:00 EDT, [facility] #09680, 158, cm, 09/05/19 10:23:00 EDT, Height, 83.5, kg, 08/20/19 19:07:00 EDT, DryWeight Start Date: 10/31/19 Status: Orderedlisinopril 5 mg oral tablet 1 tablet = 5 mg, By Mouth, Daily, 0 Refills, Maintenance Start Date: 06/25/13 Status: Ordered Problem List Diagnosis Diagnosis Type Effective Dates Health Status Clinical Serv ice Informant Pharyngitis Discharge 12/12/19 Diagnosis Vital Signs Most recent to oldest [Reference Range]: 1 Height 158 cm (12/12/19 7:33 PM) Weight 84.2 kg (12/12/19 7:33 PM) Oxygen Saturation [94-100 %] 100 % (12/12/19 7:33 PM) Pulse Rate [55-90 bpm] 82 bpm (12/12/19 7:33 PM) Body Mass Index [18.5-24.99] 33.73 *>HHI* (12/12/19 7:33 PM) Blood Pressure [90-138/55-84 mm Hg] 129/82 mm Hg (12/12/19 7:33 PM) Respiratory Rate [16-30 br/min] 18 br/min (12/12/19 7:33 PM) Temperature [96.8-100.4 DegF] 97.2 DegF (12/12/19 7:33 PM) Mode of Delivery (Oxygen) Room air (12/12/19 7:33 PM) Blood pressure sites Arm, right (12/12/19 7:33 PM) Temperature Route Temporal (12/12/19 7:33 PM) Dry Weight 84.2 kg (12/12/19 7:33 PM) Weight Obtained Via Standing scale (12/12/19 7:33 PM) Dry Weight Obtained Via Standing scale (12/12/19 7:33 PM) Social History Social History Type Response Smoking Status Never (less than 100 in life time) entered on: 08/05/18 Sex
--- OUTSIDE RECORDS SUMMARY | 2022-04-01 19:35 | XMS_ITS | Continuity of Care Document ---
:1965 Author Organization [facility] Address [address] [place] [address]- Care Team Providers Name Role Phone Zulay Peña Primary Care Physician En[place] [facility] [place] Date(s): 09/05/19 - 09/12/19 [facility] [address] [place] [address]- [facility] Attending Physician: Juan Antonio Paulson MD Referring Physician: Zulay Peña Allergies, Adverse Reactions, Alerts Substance Reaction Severity Status penicillin [D]Nausea Active morphine Dizziness/Vertigo Active Medications albuterol 90 mcg/inh inhalation powder 2 puffs, Inhalation, Every 6 hours, PRN as needed, # 1 each, 0 Refills, Maintenance, 06/16/19 11:18:00 EST, Powder, [facility] #01922, 2 puffs Inhalation Every 6 hours,PRN:as needed, 158, cm,06/16/19 10:59:00 EST, Height, 81.8, kg, 06/16/19... Start Date: 06/16/19 Status: Orderedalbuterol CFC free 90 mcg/inh inhalation aerosol 2, puffs, Inhalation, Every 4 hours, PRN, # 1 each, Refills 0, Tot. Refills 0, Maintenance, 05/03/1912:15:50 EST, Aerosol, Route to Pharmacy Electronically, [id number], [facility] #[id number] Start Date: 05/03/19 Stop Date: 05/17/19 Status: Orderedalbuterol CFC free 90 mcg/inh inhalation aerosol 2, puffs, Inhalation, Every 4 hours, PRN, # 1 each, Refills 0, Tot. Refills 0, Maintenance, 05/31/1911:47:00 EST, Aerosol, Route to Pharmacy Electronically, [id number], [facility] #67205, 158, cm, 05/31/19 11:15:00... Start Date: 05/31/19 Stop Date: 06/07/19 Status: Orderedalbuterol-ipratropium 3 mg-0.5 mg/3 ml inhalation solution 3 mL, Inhalation, 4 times a day, # 30 each, 0 Refills, Maintenance, 06/16/19 11:19:00 EST, Solution,[facility] #49800, 3 mL Inhalation 4 times a day, [...] 5 Refills, Maintenance, 07/16/19 13:29:00 EST, Tablet, [facility] #07251, 158, cm, 07/11/19 10:20:00 EST, Height, 81.8, kg, 06/16/19 10:59:00 EST, Dry Weight Start Date: 07/16/19 Status: Orderedcetirizine-pseudoephedrine 5 mg-120 mg oral tablet, extended release 1 tablet, By Mouth, 2 times a day, PRN as needed for congestion, # 30 tablet, 0 Refills, Maintenance, 08/20/19 19:29:00 EDT, ER Tablet, [facility] #17855, 1 tablet By Mouth 2 times a [...] Gm, 0 Refills, Maintenance, 08/20/19 19:28:00 EDT, [place], [facility] #39234, 1 sprays Nares, Both Daily in AM, 158, cm, 08/20/19 19:07:00 EDT, Height,83.5, kg, 08/20/19 19:07:00 EDT, Dry Weight Start Date: 08/20/19 Status: Orderedinsulin glargine 100 u/ml subcutaneous solution See Instructions, 40 units Subcutaneous Injection Daily, # 15 mL, 2 Refills, Maintenance, 07/16/19 15:18:00 EST, Solution, [facility] #85320, 158, cm, 07/11/19 10:20:00 EST, Height, 81.8, [...] mL, 0 Refills, Maintenance, 07/16/19 13:29:00 EST, [facility] #93415, 158, cm, 07/11/19 10:20:00 EST, Height, 81.8, kg, 06/16/19 10:59:00 EST, Dry Weight Start Date: 07/16/19 Status: OrderedLantus Solostar Pen 100 units/mL subcutaneous solution 70 unit, Subcutaneous Infusion, Daily, # 15 mL, 11 Refills, Maintenance, 07/18/19 9:56:00 EST, [facility] #73483, 158, cm, 07/11/19 10:20:00 EST, Height, 81.8, kg, 06/16/19 10:59:00 EST, Dry Weight Start Date: 07/18/19 Status: Orderedlisinopril 5 mg oral tablet 1 tablet = 5 mg, By Mouth, Daily, 0 Refills, Maintenance Start Date: 06/25/13 Status: Ordered Vital Signs Most recent to oldest [Reference Range]: 1 Height 158 cm (09/05/19 10:23 AM) Oxygen Saturation [94-100 %] 98 % (09/05/19 10:23 AM) Pulse Rate [55-90 bpm] 91 bpm *H* (09/05/19 10:23 AM) Blood Pressure [90-138/55-84 mm Hg] 107/86 mm Hg (09/05/19 10:23 AM) Respiratory Rate [16-30 br/min] 20 br/min (09/05/19 10:23 AM) Temperature [96.8-100.4 DegF] 96.9 DegF (09/05/19 10:23 AM) Mode of Delivery (Oxygen) Room air (09/05/19 10:23 AM) Blood pressure sites Arm, left (09/05/19 10:23 AM) Temperature Route Oral (09/05/19 10:23 AM) Social History Social History Type Response Smoking Status Never (less than 100 in life time) entered on: 08/05/18 Sex
--- OUTSIDE RECORDS SUMMARY | 2022-04-01 19:35 | XMS_ITS | Continuity of Care Document ---
:1965 Author Organization [facility] Address [address] [place] [address]- Care Team Providers Name Role Phone Zulay Peña Primary Care Physician Encounter [facility] [place] Date(s): 08/23/20 - 09/22/20 [facility] [address] [place] [address]- Attending Physician: Not on Staff, Attending MD Referring Physician: Zulay Peña Allergies, Adverse Reactions, Alerts Substance Reaction Severity Status penicillin [D]Nausea Active morphine Dizziness/Vertigo Active Medications albuterol 90 mcg/inh inhalation powder 2 puffs, Inhalation, Every 6 hours, PRN as needed, # 1 each, 0 Refills, Maintenance, 06/16/19 11:18:00 EST, Powder, [facility] #[id number], 2 puffs Inhalation Every 6 hours,PRN:as needed, 158, cm,06/16/19 10:59:00 EST, Height, 81.8, kg, 06/16/19... Start Date: 06/16/19 Status: Orderedalbuterol CFC free 90 mcg/inh inhalation aerosol 2, puffs, Inhalation, Every 4 hours, PRN, # 1 each, Refills 0, Tot. Refills 0, Maintenance, 05/03/1912:15:50 EST, Aerosol, Route to Pharmacy Electronically, [id number], [facility] #[id number] Start Date: 05/03/19 Stop Date: 05/17/19 Status: Orderedalbuterol CFC free 90 mcg/inh inhalation aerosol 2, puffs, Inhalation, Every 4 hours, PRN, # 1 each, Refills 0, Tot. Refills 0, Maintenance, 05/31/1911:47:00 EST, Aerosol, Route to Pharmacy Electronically, [id number], [facility] #[id number], 158, cm, 05/31/19 11:15:00... Start Date: 05/31/19 Stop Date: 06/07/19 Status: Orderedalbuterol-ipratropium 3 mg-0.5 mg/3 ml inhalation solution 3 mL, Inhalation, 4 times a day, # 30 each, 0 Refills, Maintenance, 06/16/19 11:19:00 EST, Solution,[facility] #[id number], 3 mL Inhalation 4 times a day, [...] 5 Refills, Maintenance, 07/16/19 13:29:00 EST, Tablet, [facility] #[id number], 158, cm, 07/11/19 10:20:00 EST, Height, 81.8, kg, 06/16/19 10:59:00 EST, Dry Weight Start Date: 07/16/19 Status: Orderedcetirizine-pseudoephedrine 5 mg-120 mg oral tablet, extended release 1 tablet, By Mouth, 2 times a day, PRN as needed for congestion, # 30 tablet, 0 Refills, Maintenance, 08/20/19 19:29:00 EDT, ER Tablet, [facility] #[id number], 1 tablet By Mouth 2 times a day,PRN:as needed for congestion, 158, cm, 08/20/19 19:07:... Start Date: 08/20/19 Status: OrderedFlonase 50 mcg/inh nasal spray 1 sprays, Nares, Both, 2 times a day, # 16 Gm, 0 Refills, Maintenance, 08/01/20 13:39:00 EST, [place] #[id number], Partial fill upon patient request if the [...] Gm, 0 Refills, Maintenance, 08/20/19 19:28:00 EDT, [place], [facility] #[id number], 1 sprays Nares, Both Daily in AM, 158, cm, 08/20/19 19:07:00 EDT, Height,83.5, kg, 08/20/19 19:07:00 EDT, Dry Weight Start Date: 08/20/19 Status: Orderedinsulin glargine 100 u/ml subcutaneous solution See Instructions, 40 units Subcutaneous Injection Daily, # 15 mL, 2 Refills, Maintenance, 07/16/19 15:18:00 EST, Solution, [facility] #[id number], 158, cm, 07/11/19 10:20:00 EST, Height, 81.8, [...] 3 Refills, Maintenance, 10/31/19 19:17:00 EDT, Tablet, [facility] #[id number], 158, cm, 09/05/19 10:23:00 EDT, Height, 83.5, kg, 08/20/19 19:07:00 EDT, Dry Weight Start Date: 10/31/19 Status: OrderedLantus 100 u/ml subcutaneous solution See Instructions, Subcutaneous Infusion Daily rotate injection sites, # 15 mL, 0 Refills, Maintenance, 07/16/19 13:29:00 EST, [facility] #[id number], 158, cm, 07/11/19 10:20:00 EST, Height, 81.8, kg, 06/16/19 10:59:00 EST, Dry Weight Start Date: 07/16/19 Status: OrderedLantus Solostar Pen 100 units/mL subcutaneous solution 70 unit, Subcutaneous Infusion, Daily, # 15 mL, 11 Refills, Maintenance, 10/31/19 19:17:00 EDT, [facility] #[id number], 158, cm, 09/05/19 10:23:00 EDT, Height, 83.5, kg, 08/20/19 19:07:00 EDT, DryWeight Start Date: 10/31/19 Status: Orderedlisinopril 5 mg oral tablet 1 tablet = 5 mg, By Mouth, Daily, 0 Refills, Maintenance Start Date: 06/25/13 Status: OrderedZithromax 250 mg oral tablet 1 pack/packet, By Mouth, Once, # 6 tablet, 0 Refills, Soft Stop, 08/01/20 13:39:00 EST, Tablet, [facility] #[id number], Partial fill upon patient request if the prescription is for a schedule II opioid drug., 158, cm, 08/01/20 13:03:00 EST, Heigh... Start Date: 08/01/20 Status: Ordered Social History Social History Type Response Smoking Status Never (less than 100 in life time) entered on: 08/05/18 Sex
--- OUTSIDE RECORDS SUMMARY | 2022-04-01 19:35 | XMS_ITS | Continuity of Care Document ---
:1965 Author Organization [facility] Address [address] [place] [address]- Care Team Providers Name Role Phone Zulay Peña Primary Care Physician Encounter [facility] [place] Date(s): 05/31/19 - 06/10/19 [facility] [address] [place] [address]- [facility] Attending Physician: Admjere, Darius8 Admitting Physician: Admtr, Ar8 Referring Physician: Admtr, Ar8 Referring Physician: Janna Garner Allergies, Adverse Reactions, Alerts Substance Reaction Severity Status penicillin [D]Nausea Active morphine Dizziness/Vertigo Active Medications albuterol CFC free 90 mcg/inh inhalation aerosol 2, puffs, Inhalation, Every 4 hours, PRN, # 1 each, Refills 0, Tot. Refills 0, Maintenance, 05/03/1912:15:50 EST, Aerosol, Route to Pharmacy Electronically, [id number], [facility] #[id number] Start Date: 05/03/19 Stop Date: 05/17/19 Status: Orderedalbuterol CFC free 90 mcg/inh inhalation aerosol 2, puffs, Inhalation, Every 4 hours, PRN, # 1 each, Refills 0, Tot. Refills 0, Maintenance, 05/31/1911:47:00 EST, Aerosol, Route to Pharmacy Electronically, [id number], [facility] #[id number], 158, cm, 05/31/19 11:15:00... Start Date: 05/31/19 [...] tablet = 40 mg, By Mouth, Daily, Maintenance, Tablet Start Date: 08/05/18 Status: Orderedbenzonatate 200 mg oral capsule 1 capsule = 200 mg, By Mouth, 3 times a day, PRN as needed for cough, for 14 days, # 42 capsule, 0 Refills, Acute 06/14/19 11:48:00 EST, 05/31/19 11:48:00 EST, [id number], 158, cm, 05/31/19 11:15:00 EST, Height, 79.6, kg, ... Start Date: 05/31/19 Stop Date: 06/14/19 Status: Orderedfluocinonide 0.05% topical cream 1 applicator, Topically, 3 times a day, apply a thin film to affected area, # 15 Gm, 0 Refills, Maintenance, 12/24/18 12:19:41 EDT, 1 applicator Topically 3 times a day,Instr:apply a thin film; to affected area Start Date: 12/24/18 Status: Orderedinsulin glargine 100 u/ml subcutaneous solution = 70 units, Subcutaneous Injection, Daily, # 15 mL, 2 Refills, Maintenance, 05/21/19 14:12:35 EST, Solution, 158, cm, 05/03/19 11:23:20 EST, Height, 77.2, kg, 05/03/19 11:23:20 EST, Dry Weight Start Date: 05/21/19 Status: Orderedinsulin lispro 100 u/ml subcutaneous injection [...] EST, Dry Weight Start Date: 05/21/19 Status: Orderedlisinopril 5 mg oral tablet 1 tablet = 5 mg, By Mouth, Daily, 0 Refills, Maintenance Start Date: 06/25/13 Status: Ordered Social History Social History Type Response Smoking Status Never (less than 100 in life time) entered on: 08/05/18 Sex
--- OUTSIDE RECORDS SUMMARY | 2022-04-01 19:35 | XMS_ITS | Continuity of Care Document ---
:1965 Author Organization [facility] Address [address] [place] [address]- Care Team Providers Name Role Phone Zulay Peña Primary Care Physician Encounter [facility] [place] [facility] R [id number] Date(s): 01/25/22 - 02/01/22 [facility] [address] [place], [place] [address] Attending Physician: Desmond Proctor DO Referring Physician: Zulay Peña Allergies, Adverse Reactions, Alerts Substance Reaction Severity Status morphine Dizziness/Vertigo Active penicillin [D]Nausea Active Medications albuterol 90 mcg/inh inhalation powder 2 puffs, Inhalation, Every 6 hours, PRN as needed, # 1 each, 0 Refills, Maintenance, 06/16/19 11:18:00 EST, Powder, [facility] #[id number], 2 puffs Inhalation Every 6 hours,PRN:as needed, 158, cm,06/16/19 10:59:00 EST, Height, 81.8, kg, 06/16/19... Start Date: 06/16/19 Status: Orderedalbuterol CFC free 90 mcg/inh inhalation aerosol 2, puffs, Inhalation, Every 4 hours, PRN, # 1 each, Refills 0, Tot. Refills 0, Maintenance, 05/03/1912:15:50 EST, Aerosol, Route to Pharmacy Electronically, [id number], [facility] #[id number] Start Date: 05/03/19 Stop Date: 05/17/19 Status: Orderedalbuterol CFC free 90 mcg/inh inhalation aerosol 2, puffs, Inhalation, Every 4 hours, PRN, # 1 each, Refills 0, Tot. Refills 0, Maintenance, 05/31/1911:47:00 EST, Aerosol, Route to Pharmacy Electronically, [id number], [facility] #[id number], 158, cm, 05/31/19 11:15:00... Start Date: 05/31/19 Stop Date: 06/07/19 Status: Orderedalbuterol-ipratropium 3 mg-0.5 mg/3 ml inhalation solution 3 mL, Inhalation, 4 times a day, # 30 each, 0 Refills, Maintenance, 06/16/19 11:19:00 EST, Solution,[facility] #[id number], 3 mL Inhalation 4 times a day, [...] 5 Refills, Maintenance, 07/16/19 13:29:00 EST, Tablet, [facility] #[id number], 158, cm, 07/11/19 10:20:00 EST, Height, 81.8, kg, 06/16/19 10:59:00 EST, Dry Weight Start Date: 07/16/19 Status: Orderedcetirizine-pseudoephedrine 5 mg-120 mg oral tablet, extended release 1 tablet, By Mouth, 2 times a day, PRN as needed for congestion, # 30 tablet, 0 Refills, Maintenance, 08/20/19 19:29:00 EDT, ER Tablet, [facility] #[id number], 1 tablet By Mouth 2 times a day,PRN:as needed for congestion, 158, cm, 08/20/19 19:07:... Start Date: 3/11/20 Status: Ordereddiclofenac sodium 75 mg oral delayed release tablet 1 tablet = 75 mg, By Mouth, 2 times a day, # 60 tablet, 0 Refills, Maintenance, 01/25/22 12:40:00 EDT, EC Tablet, [facility] #[id number], Partial fill upon patient request if the prescription is for a schedule II opioid drug., 158, cm, 01/25/22 1... Start Date: 01/25/22 Status: OrderedFlonase 50 mcg/inh nasal spray 1 sprays, Nares, Both, 2 times a day, # 16 Gm, 0 Refills, Maintenance, 08/01/20 13:39:00 EST, [place],[facility] #[id number], Partial fill upon patient request if the [...] Gm, 0 Refills, Maintenance, 08/20/19 19:28:00 EDT, [place], [facility] #[id number], 1 sprays Nares, Both Daily in AM, 158, cm, 08/20/19 19:07:00 EDT, Height,83.5, kg, 08/20/19 19:07:00 EDT, Dry Weight Start Date: 08/20/19 Status: Orderedinsulin glargine 100 u/ml subcutaneous solution See Instructions, 40 units Subcutaneous Injection Daily, # 15 mL, 2 Refills, Maintenance, 07/16/19 15:18:00 EST, Solution, [facility] #[id number], 158, cm, 07/11/19 10:20:00 EST, Height, 81.8, [...] 3 Refills, Maintenance, 10/31/19 19:17:00 EDT, Tablet, [facility] #[id number], 158, cm, 09/05/19 10:23:00 EDT, Height, 83.5, kg, 08/20/19 19:07:00 EDT, Dry Weight Start Date: 10/31/19 Status: OrderedLantus 100 u/ml subcutaneous solution See Instructions, Subcutaneous Infusion Daily rotate injection sites, # 15 mL, 0 Refills, Maintenance, 07/16/19 13:29:00 EST, [facility] #[id number], 158, cm, 07/11/19 10:20:00 EST, Height, 81.8, kg, 06/16/19 10:59:00 EST, Dry Weight Start Date: 07/16/19 Status: OrderedLantus Solostar Pen 100 units/mL subcutaneous solution 70 unit, Subcutaneous Infusion, Daily, # 15 mL, 11 Refills, Maintenance, 10/31/19 19:17:00 EDT, [facility] #[id number], 158, cm, 09/05/19 10:23:00 EDT, Height, 83.5, kg, 08/20/19 19:07:00 EDT, DryWeight Start Date: 10/31/19 Status: Orderedlisinopril 5 mg oral tablet 1 tablet = 5 mg, By Mouth, Daily, 0 Refills, Maintenance Start Date: 06/25/13 Status: OrderedZithromax 250 mg oral tablet 1 pack/packet, By Mouth, Once, # 6 tablet, 0 Refills, Soft Stop, 08/01/20 13:39:00 EST, Tablet, [facility] #[id number], Partial fill upon patient request if the prescription is for a schedule II opioid drug., 158, cm, 08/01/20 13:03:00 EST, Heigh... Start Date: 08/01/20 Status: Ordered Vital Signs Most recent to oldest [Reference Range]: 1 Height 158 cm (01/25/22 12:23 PM) Oxygen Saturation [94-100 %] 98 % (01/25/22 12:23 PM) Pulse Rate [55-90 bpm] 98 bpm *H* (01/25/22 12:23 PM) Blood Pressure [90-138/55-84 mm Hg] 135/82 mm Hg (01/25/22 12:23 PM) Temperature [96.8-100.4 DegF] 97 DegF (01/25/22 12:23 PM) Mode of Delivery (Oxygen) Room air (01/25/22 12:23 PM) Blood pressure sites Arm, left (01/25/22 12:23 PM) Temperature Route Temporal (01/25/22 12:23 PM) Social History Social History Type Response Smoking Status Never (less than 100 in life time) entered on: 08/05/18 Sex
--- OUTSIDE RECORDS SUMMARY | 2022-04-01 19:35 | XMS_ITS | Continuity of Care Document ---
:1965 Author Organization [facility] Address [address] [place] [address]- Care Team Providers Name Role Phone Zulay Peña Primary Care Physician Encounter [facility] [place] Date(s): 07/11/19 - 07/21/19 [facility] [address] [place] [address]- [facility] Attending Physician: Alexis Sierra Admitting Physician: Admtr, Darius8 Referring Physician: tr, Ar8 Referring Physician: Janna Garner Allergies, Adverse Reactions, Alerts Substance Reaction Severity Status penicillin [D]Nausea Active morphine Dizziness/Vertigo Active Medications albuterol 90 mcg/inh inhalation powder 2 puffs, Inhalation, Every 6 hours, PRN as needed, # 1 each, 0 Refills, Maintenance, 06/16/19 11:18:00 EST, Powder, [facility] #[id number], 2 puffs Inhalation Every 6 hours,PRN:as needed, 158, cm,06/16/19 10:59:00 EST, Height, 81.8, kg, 06/16/19... Start Date: 06/16/19 Status: Orderedalbuterol CFC free 90 mcg/inh inhalation aerosol 2, puffs, Inhalation, Every 4 hours, PRN, # 1 each, Refills 0, Tot. Refills 0, Maintenance, 05/03/1912:15:50 EST, Aerosol, Route to Pharmacy Electronically, [id number], [facility] #[id number] Start Date: 05/03/19 Stop Date: 05/17/19 Status: Orderedalbuterol CFC free 90 mcg/inh inhalation aerosol 2, puffs, Inhalation, Every 4 hours, PRN, # 1 each, Refills 0, Tot. Refills 0, Maintenance, 05/31/1911:47:00 EST, Aerosol, Route to Pharmacy Electronically, [id number], [facility] #[id number], 158, cm, 05/31/19 11:15:00... Start Date: 05/31/19 Stop Date: 06/07/19 Status: Orderedalbuterol-ipratropium 3 mg-0.5 mg/3 ml inhalation solution 3 mL, Inhalation, 4 times a day, # 30 each, 0 Refills, Maintenance, 06/16/19 11:19:00 EST, Solution,[facility] #[id number], 3 mL Inhalation 4 times a day, [...] 5 Refills, Maintenance, 07/16/19 13:29:00 EST, Tablet, [facility] #[id number], 158, cm, 07/11/19 10:20:00 EST, Height, 81.8, [...] 2 Refills, Maintenance, 07/16/19 15:18:00 EST, Solution, [facility] #[id number], 158, cm, 07/11/19 10:20:00 EST, Height, 81.8, [...] mL, 0 Refills, Maintenance, 07/16/19 13:29:00 EST, [facility] #85256, 158, cm, 07/11/19 10:20:00 EST, Height, 81.8, kg, 06/16/19 10:59:00 EST, Dry Weight Start Date: 07/16/19 Status: OrderedLantus Solostar Pen 100 units/mL subcutaneous solution 70 unit, Subcutaneous Infusion, Daily, # 15 mL, 11 Refills, Maintenance, 07/18/19 9:56:00 EST, [facility] #[id number], 158, cm, 07/11/19 10:20:00 EST, Height, 81.8, [...]
--- OUTSIDE RECORDS SUMMARY | 2022-04-01 19:35 | XMS_ITS | Continuity of Care Document ---
:1965 Author Organization [facility] Address [address] [place] [address]- Care Team Providers Name Role Phone Zulay Peña Primary Care Physician Encounter [facility] [place] Date(s): 06/16/19 - 06/23/19 [facility] [address] [place] [address]- [facility] Attending Physician: Juan Antonio Paulson MD Referring Physician: Zulay Peña Allergies, Adverse Reactions, Alerts Substance Reaction Severity Status penicillin [D]Nausea Active morphine Dizziness/Vertigo Active Medications albuterol 90 mcg/inh inhalation powder 2 puffs, Inhalation, Every 6 hours, PRN as needed, # 1 each, 0 Refills, Maintenance, 06/16/19 11:18:00 EST, Powder, [facility] #[id number], 2 puffs Inhalation Every 6 hours,PRN:as needed, 158, cm,06/16/19 10:59:00 EST, Height, 81.8, kg, 06/16/19... Start Date: 06/16/19 Status: Orderedalbuterol CFC free 90 mcg/inh inhalation aerosol 2, puffs, Inhalation, Every 4 hours, PRN, # 1 each, Refills 0, Tot. Refills 0, Maintenance, 05/03/1912:15:50 EST, Aerosol, Route to Pharmacy Electronically, [id number], [facility] #[id number] Start Date: 05/03/19 Stop Date: 05/17/19 Status: Orderedalbuterol CFC free 90 mcg/inh inhalation aerosol 2, puffs, Inhalation, Every 4 hours, PRN, # 1 each, Refills 0, Tot. Refills 0, Maintenance, 05/31/1911:47:00 EST, Aerosol, Route to Pharmacy Electronically, [id number], [facility] #[id number], 158, cm, 05/31/19 11:15:00... Start Date: 05/31/19 Stop Date: 06/07/19 Status: Orderedalbuterol-ipratropium 3 mg-0.5 mg/3 ml inhalation solution 3 mL, Inhalation, 4 times a day, # 30 each, 0 Refills, Maintenance, 06/16/19 11:19:00 EST, Solution,[facility] #[id number], 3 mL Inhalation 4 times a day, [...] Daily, Maintenance, Tablet Start Date: 08/05/18 Status: Orderedfluocinonide 0.05% topical cream 1 applicator, Topically, 3 times a day, apply a thin film to affected area, # 15 Gm, 0 Refills, Maintenance, 12/24/18 12:19:41 EDT, 1 applicator Topically 3 times a day,Instr:apply a thin film; to affected area Start Date: 12/24/18 Status: Orderedinsulin glargine 100 u/ml subcutaneous solution = 70 units, Subcutaneous Injection, Daily, # 15 mL, 2 Refills, Maintenance, 06/21/19 13:00:00 EST, Solution, [facility] #[id number], 158, cm, 06/16/19 10:59:00 EST, Height, 81.8, kg, 06/16/19 10:59:00 EST, Dry Weight Start Date: 06/21/19 Status: Orderedinsulin lispro 100 u/ml subcutaneous injection [...] sites, # 15 mL, 0 Refills, Maintenance, 06/16/19 11:19:00 EST, [facility] #[id number], 158, cm, 06/16/19 10:59:00 EST, Height, 81.8, kg, 06/16/19 10:59:00 EST, Dry Weight Start Date: 06/16/19 Status: Orderedlisinopril 5 mg oral tablet 1 tablet = 5 mg, By Mouth, Daily, 0 Refills, Maintenance Start Date: 06/25/13 Status: Orderednaproxen 500 mg oral tablet 1 tablet = 500 mg, By Mouth, 2 times a day, for 10 days, # 20 tablet, 0 Refills, Acute 06/26/19 11:33:00 EST, 06/16/19 11:33:00 EST, Tablet, [facility] #[id number], 158, cm, 06/16/19 10:59:00 EST,Height, 81.8, kg, 06/16/19 10:59:00 EST, Dry Weight Start Date: 06/16/19 Stop Date: 06/26/19 Status: Ordered Vital Signs Most recent to oldest [Reference Range]: 1 Height 158 cm (06/16/19 10:59 AM) Weight 81.8 kg (06/16/19 10:59 AM) Oxygen Saturation [94-100 %] 97 % (06/16/19 10:59 AM) Pulse Rate [55-90 bpm] 117 bpm *H* (06/16/19 10:59 AM) Body Mass Index [18.5-24.99] 32.77 *>HHI* (06/16/19 10:59 AM) Blood Pressure [90-138/55-84 mm Hg] 121/63 mm Hg (06/16/19 10:59 AM) Respiratory Rate [16-30 br/min] 22 br/min (06/16/19 10:59 AM) Temperature [96.8-100.4 DegF] 99.6 DegF (06/16/19 10:59 AM) Mode of Delivery (Oxygen) Room air (06/16/19 10:59 AM) Blood pressure sites Arm, left (06/16/19 10:59 AM) Temperature Route Oral (06/16/19 10:59 AM) Dry Weight 81.8 kg (06/16/19 10:59 AM) Weight Obtained Via Standing scale (06/16/19 10:59 AM) Dry Weight Obtained Via Standing scale (06/16/19 10:59 AM) Social History Social History Type Response Smoking Status Never (less than 100 in life time) entered on: 08/05/18 Sex
--- OUTSIDE RECORDS SUMMARY | 2022-04-01 19:35 | XMS_ITS | Continuity of Care Document ---
:1965 Author Organization [facility] Address [address] [place] [address]- Care Team Providers Name Role Phone Zulay Peña Primary Care Physician Encounter [facility] [place] Date(s): 05/31/19 - 06/07/19 [facility] [address] [place] [address]- [facility] Attending Physician: Linda Mendoza MD Referring Physician: Zulay Peña Allergies, Adverse Reactions, Alerts Substance Reaction Severity Status penicillin [D]Nausea Active morphine Dizziness/Vertigo Active Medications albuterol CFC free 90 mcg/inh inhalation aerosol 2, puffs, Inhalation, Every 4 hours, PRN, # 1 each, Refills 0, Tot. Refills 0, Maintenance, 05/03/1912:15:50 EST, Aerosol, Route to Pharmacy Electronically, [id number], [facility] #[id number] Start Date: 05/03/19 Stop Date: 05/17/19 Status: Orderedalbuterol CFC free 90 mcg/inh inhalation aerosol 2, puffs, Inhalation, Every 4 hours, PRN, # 1 each, Refills 0, Tot. Refills 0, Maintenance, 05/31/1911:47:00 EST, Aerosol, Route to Pharmacy Electronically, [id number], [facility] #[id number], 158, cm, 05/31/19 11:15:00... Start Date: 05/31/19 [...] 06/14/19 11:48:00 EST, 05/31/19 11:48:00 EST, Capsule, [facility] #[id number], 158, cm, 05/31/19 11:15:00 EST, Height, 79.6, kg, 12/... Start Date: 05/31/19 Stop Date: 06/14/19 Status: [...] oldest [Reference Range]: 1 Height 158 cm (05/31/19 11:15 AM) Weight 79.6 kg (05/31/19 11:15 AM) Oxygen Saturation [94-100 %] 100 % (05/31/19 11:15 AM) Pulse Rate [55-90 bpm] 95 bpm *H* (05/31/19 11:15 AM) Body Mass Index [18.5-24.99] 31.89 *>HHI* (05/31/19 11:15 AM) Blood Pressure [90-138/55-84 mm Hg] 132/67 mm Hg (05/31/19 11:15 AM) Respiratory Rate [16-30 br/min] 17 br/min (05/31/19 11:15 AM) Temperature [96.8-100.4 DegF] 97.8 DegF (05/31/19 11:15 AM) Mode of Delivery (Oxygen) Room air (05/31/19 11:15 AM) Blood pressure sites Arm, right (05/31/19 11:15 AM) Temperature Route Oral (05/31/19 11:15 AM) Dry Weight 79.6 kg (05/31/19 11:15 AM) Dry Weight Obtained Via Standing scale (05/31/19 11:15 AM) Social History Social History Type Response Smoking Status Never (less than 100 in life time) entered on: 08/05/18 Sex
--- OUTSIDE RECORDS SUMMARY | 2022-04-01 19:35 | XMS_ITS | Continuity of Care Document ---
:1965 Author Organization [facility] Address [address] [place] [address]- Care Team Providers Name Role Phone Zulay Peña Primary Care Physician Encounter [facility] Date(s): 12/12/19 - 01/11/20 [facility] [address] [place] [address]- [facility] Attending Physician: Mariela, Alexis Admitting Physician: Admtr, Ar8 Referring Physician: Admtr, Ar8 Referring Physician: Janna Garner Allergies, Adverse Reactions, Alerts Substance Reaction Severity Status penicillin [D]Nausea Active morphine Dizziness/Vertigo Active Medications albuterol 90 mcg/inh inhalation powder 2 puffs, Inhalation, Every 6 hours, PRN as needed, # 1 each, 0 Refills, Maintenance, 06/16/19 11:18:00 EST, Powder, [facility] #[id number], 2 puffs Inhalation Every 6 hours,PRN:as needed, 158, cm,06/16/19 10:59:00 EST, Height, 81.8, kg, 06/16/19... Start Date: 06/16/19 Status: Orderedalbuterol CFC free 90 mcg/inh inhalation aerosol 2, puffs, Inhalation, Every 4 hours, PRN, # 1 each, Refills 0, Tot. Refills 0, Maintenance, 05/03/1912:15:50 EST, Aerosol, Route to Pharmacy Electronically, [id number], [facility] #[id number] Start Date: 05/03/19 Stop Date: 05/17/19 Status: Orderedalbuterol CFC free 90 mcg/inh inhalation aerosol 2, puffs, Inhalation, Every 4 hours, PRN, # 1 each, Refills 0, Tot. Refills 0, Maintenance, 05/31/1911:47:00 EST, Aerosol, Route to Pharmacy Electronically, [id number], [facility] #95883, 158, cm, 05/31/19 11:15:00... Start Date: 05/31/19 Stop Date: 06/07/19 Status: Orderedalbuterol-ipratropium 3 mg-0.5 mg/3 ml inhalation solution 3 mL, Inhalation, 4 times a day, # 30 each, 0 Refills, Maintenance, 06/16/19 11:19:00 EST, Solution,[facility] #05765, 3 mL Inhalation 4 times a day, [...] 5 Refills, Maintenance, 07/16/19 13:29:00 EST, Tablet, [facility] #[id number], 158, cm, 07/11/19 10:20:00 EST, Height, 81.8, kg, 06/16/19 10:59:00 EST, Dry Weight Start Date: 07/16/19 Status: Orderedcetirizine-pseudoephedrine 5 mg-120 mg oral tablet, extended release 1 tablet, By Mouth, 2 times a day, PRN as needed for congestion, # 30 tablet, 0 Refills, Maintenance, 08/20/19 19:29:00 EDT, ER Tablet, [facility] #77826, 1 tablet By Mouth 2 times a [...] Gm, 0 Refills, Maintenance, 08/20/19 19:28:00 EDT, [place], [facility] #64941, 1 sprays Nares, Both Daily in AM, 158, cm, 08/20/19 19:07:00 EDT, Height,83.5, kg, 08/20/19 19:07:00 EDT, Dry Weight Start Date: 08/20/19 Status: Orderedinsulin glargine 100 u/ml subcutaneous solution See Instructions, 40 units Subcutaneous Injection Daily, # 15 mL, 2 Refills, Maintenance, 07/16/19 15:18:00 EST, Solution, [facility] #84730, 158, cm, 07/11/19 10:20:00 EST, Height, 81.8, [...] 3 Refills, Maintenance, 10/31/19 19:17:00 EDT, Tablet, [facility] #[id number], 158, cm, 09/05/19 10:23:00 EDT, Height, 83.5, kg, 08/20/19 19:07:00 EDT, Dry Weight Start Date: 10/31/19 Status: OrderedLantus 100 u/ml subcutaneous solution See Instructions, Subcutaneous Infusion Daily rotate injection sites, # 15 mL, 0 Refills, Maintenance, 07/16/19 13:29:00 EST, [facility] #[id number], 158, cm, 07/11/19 10:20:00 EST, Height, 81.8, kg, 06/16/19 10:59:00 EST, Dry Weight Start Date: 07/16/19 Status: OrderedLantus Solostar Pen 100 units/mL subcutaneous solution 70 unit, Subcutaneous Infusion, Daily, # 15 mL, 11 Refills, Maintenance, 10/31/19 19:17:00 EDT, [facility] #53703, 158, cm, 09/05/19 10:23:00 EDT, Height, 83.5, kg, 08/20/19 19:07:00 EDT, DryWeight Start Date: 10/31/19 Status: Orderedlisinopril 5 mg oral tablet 1 tablet = 5 mg, By Mouth, Daily, 0 Refills, Maintenance Start Date: 06/25/13 Status: Ordered Social History Social History Type Response Smoking Status Never (less than 100 in life time) entered on: 08/05/18 Sex
--- OUTSIDE RECORDS SUMMARY | 2022-04-01 19:35 | XMS_ITS | Continuity of Care Document ---
:1965 Author Organization [facility] Address [address] [place] [address]- Care Team Providers Name Role Phone Zulay Peña [id number] [address] [place], [place] [address] Attending Physician: Maryam Reyez MD Referring Physician: Zulay Peña Allergies, Adverse Reactions, Alerts Substance Reaction Severity Status penicillin [D]Nausea Active morphine Dizziness/Vertigo Active Medications albuterol 90 mcg/inh inhalation powder 2 puffs, Inhalation, Every 6 hours, PRN as needed, # 1 each, 0 Refills, Maintenance, 06/16/19 11:18:00 EST, Powder, [facility] #[id number], 2 puffs Inhalation Every 6 hours,PRN:as needed, 158, cm,06/16/19 10:59:00 EST, Height, 81.8, kg, 06/16/19... Start Date: 06/16/19 Status: Orderedalbuterol CFC free 90 mcg/inh inhalation aerosol 2, puffs, Inhalation, Every 4 hours, PRN, # 1 each, Refills 0, Tot. Refills 0, Maintenance, 05/03/1912:15:50 EST, Aerosol, Route to Pharmacy Electronically, [id number], [facility] #[id number] Start Date: 05/03/19 Stop Date: 05/17/19 Status: Orderedalbuterol CFC free 90 mcg/inh inhalation aerosol 2, puffs, Inhalation, Every 4 hours, PRN, # 1 each, Refills 0, Tot. Refills 0, Maintenance, 05/31/1911:47:00 EST, Aerosol, Route to Pharmacy Electronically, [id number], [facility] #[id number], 158, cm, 05/31/19 11:15:00... Start Date: 05/31/19 Stop Date: 06/07/19 Status: Orderedalbuterol-ipratropium 3 mg-0.5 mg/3 ml inhalation solution 3 mL, Inhalation, 4 times a day, # 30 each, 0 Refills, Maintenance, 06/16/19 11:19:00 EST, Solution,[facility] #26625, 3 mL Inhalation 4 times a day, [...] 5 Refills, Maintenance, 07/16/19 13:29:00 EST, Tablet, [facility] #15187, 158, cm, 07/11/19 10:20:00 EST, Height, 81.8, kg, 06/16/19 10:59:00 EST, Dry Weight Start Date: 07/16/19 Status: Orderedcetirizine-pseudoephedrine 5 mg-120 mg oral tablet, extended release 1 tablet, By Mouth, 2 times a day, PRN as needed for congestion, # 30 tablet, 0 Refills, Maintenance, 08/20/19 19:29:00 EDT, ER Tablet, [facility] #94276, 1 tablet By Mouth 2 times a day,PRN:as needed for congestion, 158, cm, 08/20/19 19:07:... Start Date: 08/20/19 Status: OrderedFlonase 50 mcg/inh nasal spray 1 sprays, Nares, Both, 2 times a day, # 16 Gm, 0 Refills, Maintenance, 08/01/20 13:39:00 EST, [place],[facility] #[id number], Partial fill upon patient request if the [...] Gm, 0 Refills, Maintenance, 08/20/19 19:28:00 EDT, [place], [facility] #77175, 1 sprays Nares, Both Daily in AM, 158, cm, 08/20/19 19:07:00 EDT, Height,83.5, kg, 08/20/19 19:07:00 EDT, Dry Weight Start Date: 08/20/19 Status: Orderedinsulin glargine 100 u/ml subcutaneous solution See Instructions, 40 units Subcutaneous Injection Daily, # 15 mL, 2 Refills, Maintenance, 07/16/19 15:18:00 EST, Solution, [facility] #55081, 158, cm, 07/11/19 10:20:00 EST, Height, 81.8, [...] 3 Refills, Maintenance, 10/31/19 19:17:00 EDT, Tablet, [facility] #63797, 158, cm, 09/05/19 10:23:00 EDT, Height, 83.5, kg, 08/20/19 19:07:00 EDT, Dry Weight Start Date: 10/31/19 Status: OrderedLantus 100 u/ml subcutaneous solution See Instructions, Subcutaneous Infusion Daily rotate injection sites, # 15 mL, 0 Refills, Maintenance, 07/16/19 13:29:00 EST, [facility] #36026, 158, cm, 07/11/19 10:20:00 EST, Height, 81.8, kg, 06/16/19 10:59:00 EST, Dry Weight Start Date: 07/16/19 Status: OrderedLantus Solostar Pen 100 units/mL subcutaneous solution 70 unit, Subcutaneous Infusion, Daily, # 15 mL, 11 Refills, Maintenance, 10/31/19 19:17:00 EDT, [facility] #77399, 158, cm, 09/05/19 10:23:00 EDT, Height, 83.5, kg, 08/20/19 19:07:00 EDT, DryWeight Start Date: 10/31/19 Status: Orderedlisinopril 5 mg oral tablet 1 tablet = 5 mg, By Mouth, Daily, 0 Refills, Maintenance Start Date: 06/25/13 Status: Orderednaproxen 500 mg oral tablet 1 tablet = 500 mg, By Mouth, 2 times a day, for 10 days, # 20 tablet, 0 Refills, Acute 08/21/21 12:40:00 EDT, 08/11/21 12:40:00 EST, Tablet, [facility] #02623, Partial fill upon patient request if the prescription is for a schedule II opioid... Start Date: 08/11/21 Stop Date: 08/21/21 Status: OrderedZithromax 250 mg oral tablet 1 pack/packet, By Mouth, Once, # 6 tablet, 0 Refills, Soft Stop, 08/01/20 13:39:00 EST, Tablet, [facility] #61839, Partial fill upon patient request if the prescription is for a schedule II opioid drug., 158, cm, 08/01/20 13:03:00 Linda EMMANUEL... Start Date: 08/01/20 Status: Ordered Vital Signs Most recent to oldest [Reference Range]: 1 Height 158 cm (08/11/21 12:24 PM) Oxygen Saturation [94-100 %] 100 % (08/11/21 12:24 PM) Pulse Rate [55-90 bpm] 94 bpm *H* (08/11/21 12:24 PM) Blood Pressure [90-138/55-84 mm Hg] 115/58 mm Hg (08/11/21 12:24 PM) Temperature [96.8-100.4 DegF] 98.4 DegF (08/11/21 12:24 PM) Mode of Delivery (Oxygen) Room air (08/11/21 12:24 PM) Blood pressure sites Arm, right (08/11/21 12:24 PM) Temperature Route Temporal (08/11/21 12:24 PM) Social History Social History Type Response Smoking Status Never (less than 100 in life time) entered on: 08/05/18 Sex
--- OUTSIDE RECORDS SUMMARY | 2022-04-01 19:35 | XMS_ITS | Continuity of Care Document ---
:1965 Author Organization [facility] Address [address] [place] [address]- Care Team Providers Name Role Phone Zulay Peña Primary Care Physician Encounter [facility] Date(s): 06/16/19 - 06/16/[address] [address]- [facility] Attending Physician: Juan Antonio Paulson MD Allergies, Adverse Reactions, Alerts Substance Reaction Severity Status penicillin [D]Nausea Active morphine Dizziness/Vertigo Active Medications albuterol 90 mcg/inh inhalation powder 2 puffs, Inhalation, Every 6 hours, PRN as needed, # 1 each, 0 Refills, Maintenance, 06/16/19 11:18:00 EST, Powder, [facility] #[id number], 2 puffs Inhalation Every 6 hours,PRN:as needed, 158, cm,06/16/19 10:59:00 EST, Height, 81.8, kg, 06/16/19... Start Date: 06/16/19 Status: Orderedalbuterol CFC free 90 mcg/inh inhalation aerosol 2, puffs, Inhalation, Every 4 hours, PRN, # 1 each, Refills 0, Tot. Refills 0, Maintenance, 05/03/1912:15:50 EST, Aerosol, Route to Pharmacy Electronically, [id number], [facility] #[id number] Start Date: 05/03/19 Stop Date: 05/17/19 Status: Orderedalbuterol CFC free 90 mcg/inh inhalation aerosol 2, puffs, Inhalation, Every 4 hours, PRN, # 1 each, Refills 0, Tot. Refills 0, Maintenance, 05/31/1911:47:00 EST, Aerosol, Route to Pharmacy Electronically, [id number], [facility] #11661, 158, cm, 05/31/19 11:15:00... Start Date: 05/31/19 Stop Date: 06/07/19 Status: Orderedalbuterol-ipratropium 3 mg-0.5 mg/3 ml inhalation solution 3 mL, Inhalation, 4 times a day, # 30 each, 0 Refills, Maintenance, 06/16/19 11:19:00 EST, Solution,[facility] #14788, 3 mL Inhalation 4 times a day, [...] mL, 0 Refills, Maintenance, 06/16/19 11:19:00 EST, [facility] #[id number], 158, cm, 06/16/19 10:59:00 EST, Height, 81.8, [...] 06/26/19 11:33:00 EST, 06/16/19 11:33:00 EST, Tablet, [facility] #80027, 158, cm, 06/16/19 10:59:00 EST,Height, 81.8, kg, 06/16/19 10:59:00 EST, Dry Weight Start Date: 06/16/19 Stop Date: 06/26/19 Status: Ordered Social History Social History Type Response Smoking Status Never (less than 100 in life time) entered on: 08/05/18 Sex
--- OUTSIDE RECORDS SUMMARY | 2022-04-01 19:35 | XMS_ITS | Continuity of Care Document ---
:1965 Author Organization [facility] Address [address] [place] [address]- Care Team Providers Name Role Phone Zulay Peña Primary Care Physician [place] [facility] [place]s): 08/01/20 - 08/31/20 [facility] [address] [place], [place] [address] Attending Physician: Alexis Sierra Admitting Physician: Alexis Sierra Referring Physician: [email or web address] Referring Physician: Janna Garner Allergies, Adverse Reactions, Alerts Substance Reaction Severity Status morphine Dizziness/Vertigo Active penicillin [D]Nausea Active Medications albuterol 90 mcg/inh inhalation powder 2 puffs, Inhalation, Every 6 hours, PRN as needed, # 1 each, 0 Refills, Maintenance, 06/16/19 11:18:00 EST, Powder, [facility] #[id number], 2 puffs Inhalation Every 6 hours,PRN:as needed, 158, cm,06/16/19 10:59:00 EST, Height, 81.8, kg, 06/16/19... Start Date: 06/16/19 Status: Orderedalbuterol CFC free 90 mcg/inh inhalation aerosol 2, puffs, Inhalation, Every 4 hours, PRN, # 1 each, Refills 0, Tot. Refills 0, Maintenance, 05/03/1912:15:50 EST, Aerosol, Route to Pharmacy Electronically, [id number], [facility] #[id number] Start Date: 05/03/19 Stop Date: 05/17/19 Status: Orderedalbuterol CFC free 90 mcg/inh inhalation aerosol 2, puffs, Inhalation, Every 4 hours, PRN, # 1 each, Refills 0, Tot. Refills 0, Maintenance, 05/31/1911:47:00 EST, Aerosol, Route to Pharmacy Electronically, [id number], [facility] #56590, 158, cm, 05/31/19 11:15:00... Start Date: 05/31/19 Stop Date: 06/07/19 Status: Orderedalbuterol-ipratropium 3 mg-0.5 mg/3 ml inhalation solution 3 mL, Inhalation, 4 times a day, # 30 each, 0 Refills, Maintenance, 06/16/19 11:19:00 EST, Solution,[facility] #80349, 3 mL Inhalation 4 times a day, [...] 5 Refills, Maintenance, 07/16/19 13:29:00 EST, Tablet, [facility] #66075, 158, cm, 07/11/19 10:20:00 EST, Height, 81.8, kg, 06/16/19 10:59:00 EST, Dry Weight Start Date: 07/16/19 Status: Orderedcetirizine-pseudoephedrine 5 mg-120 mg oral tablet, extended release 1 tablet, By Mouth, 2 times a day, PRN as needed for congestion, # 30 tablet, 0 Refills, Maintenance, 08/20/19 19:29:00 EDT, ER Tablet, [facility] #25663, 1 tablet By Mouth 2 times a day,PRN:as needed for congestion, 158, cm, 08/20/19 19:07:... Start Date: 08/20/19 Status: OrderedFlonase 50 mcg/inh nasal spray 1 sprays, Nares, Both, 2 times a day, # 16 Gm, 0 Refills, Maintenance, 08/01/20 13:39:00 EST, [place],[facility] #49082, Partial fill upon patient request if the [...] Gm, 0 Refills, Maintenance, 08/20/19 19:28:00 EDT, [place], [facility] #23770, 1 sprays Nares, Both Daily in AM, 158, cm, 08/20/19 19:07:00 EDT, Height,83.5, kg, 08/20/19 19:07:00 EDT, Dry Weight Start Date: 08/20/19 Status: Orderedinsulin glargine 100 u/ml subcutaneous solution See Instructions, 40 units Subcutaneous Injection Daily, # 15 mL, 2 Refills, Maintenance, 07/16/19 15:18:00 EST, Solution, [facility] #85856, 158, cm, 07/11/19 10:20:00 EST, Height, 81.8, [...] 3 Refills, Maintenance, 10/31/19 19:17:00 EDT, Tablet, [facility] #78543, 158, cm, 09/05/19 10:23:00 EDT, Height, 83.5, kg, 08/20/19 19:07:00 EDT, Dry Weight Start Date: 10/31/19 Status: OrderedLantus 100 u/ml subcutaneous solution See Instructions, Subcutaneous Infusion Daily rotate injection sites, # 15 mL, 0 Refills, Maintenance, 07/16/19 13:29:00 EST, [facility] #98451, 158, cm, 07/11/19 10:20:00 EST, Height, 81.8, kg, 06/16/19 10:59:00 EST, Dry Weight Start Date: 07/16/19 Status: OrderedLantus Solostar Pen 100 units/mL subcutaneous solution 70 unit, Subcutaneous Infusion, Daily, # 15 mL, 11 Refills, Maintenance, 10/31/19 19:17:00 EDT, [facility] #18397, 158, cm, 09/05/19 10:23:00 EDT, Height, 83.5, kg, 08/20/19 19:07:00 EDT, DryWeight Start Date: 10/31/19 Status: Orderedlisinopril 5 mg oral tablet 1 tablet = 5 mg, By Mouth, Daily, 0 Refills, Maintenance Start Date: 06/25/13 Status: OrderedZithromax 250 mg oral tablet 1 pack/packet, By Mouth, Once, # 6 tablet, 0 Refills, Soft Stop, 08/01/20 13:39:00 EST, Tablet, [facility] #82177, Partial fill upon patient request if the prescription is for a schedule II opioid drug., 158, cm, 08/01/20 13:03:00 EST, [place]... Start Date: 08/01/20 Status: Ordered Social History Social History Type Response Smoking Status Never (less than 100 in life time) entered on: 08/05/18 Sex
--- OUTSIDE RECORDS SUMMARY | 2022-04-01 19:35 | XMS_ITS | Continuity of Care Document ---
:1965 Author Organization [facility] Address [address] [place] [address]- Care Team Providers Name Role Phone Zulay Peña Primary Care Physician Encounter [facility] [place] Date(s): 06/14/21 - 07/20/[address] [address] Attending Physician: Zulay Peña Admitting Physician: Zulay Peña Referring Physician: Zulay Peña Allergies, Adverse Reactions, Alerts Substance Reaction Severity Status penicillin [D]Nausea Active morphine Dizziness/Vertigo Active Medications albuterol 90 mcg/inh inhalation powder 2 puffs, Inhalation, Every 6 hours, PRN as needed, # 1 each, 0 Refills, Maintenance, 06/16/19 11:18:00 EST, Powder, [facility] #77384, 2 puffs Inhalation Every 6 hours,PRN:as needed, 158, cm,06/16/19 10:59:00 EST, Height, 81.8, kg, 06/16/19... Start Date: 06/16/19 Status: Orderedalbuterol CFC free 90 mcg/inh inhalation aerosol 2, puffs, Inhalation, Every 4 hours, PRN, # 1 each, Refills 0, Tot. Refills 0, Maintenance, 05/03/1912:15:50 EST, Aerosol, Route to Pharmacy Electronically, [id number], [facility] #[id number] Start Date: 05/03/19 Stop Date: 05/17/19 Status: Orderedalbuterol CFC free 90 mcg/inh inhalation aerosol 2, puffs, Inhalation, Every 4 hours, PRN, # 1 each, Refills 0, Tot. Refills 0, Maintenance, 05/31/1911:47:00 EST, Aerosol, Route to Pharmacy Electronically, [id number], [facility] #[id number], 158, cm, 05/31/19 11:15:00... Start Date: 05/31/19 Stop Date: 06/07/19 Status: Orderedalbuterol-ipratropium 3 mg-0.5 mg/3 ml inhalation solution 3 mL, Inhalation, 4 times a day, # 30 each, 0 Refills, Maintenance, 06/16/19 11:19:00 EST, Solution,[facility] #10741, 3 mL Inhalation 4 times a day, [...] 5 Refills, Maintenance, 07/16/19 13:29:00 EST, Tablet, [facility] #56202, 158, cm, 07/11/19 10:20:00 EST, Height, 81.8, kg, 06/16/19 10:59:00 EST, Dry Weight Start Date: 07/16/19 Status: Orderedcetirizine-pseudoephedrine 5 mg-120 mg oral tablet, extended release 1 tablet, By Mouth, 2 times a day, PRN as needed for congestion, # 30 tablet, 0 Refills, Maintenance, 08/20/19 19:29:00 EDT, ER Tablet, [facility] #99844, 1 tablet By Mouth 2 times a day,PRN:as needed for congestion, 158, cm, 08/20/19 19:07:... Start Date: 08/20/19 Status: OrderedFlonase 50 mcg/inh nasal spray 1 sprays, Nares, Both, 2 times a day, # 16 Gm, 0 Refills, Maintenance, 08/01/20 13:39:00 EST, [place],[facility] #66302, Partial fill upon patient request if the [...] Gm, 0 Refills, Maintenance, 08/20/19 19:28:00 EDT, [place], [facility] #24338, 1 sprays Nares, Both Daily in AM, 158, cm, 08/20/19 19:07:00 EDT, Height,83.5, kg, 08/20/19 19:07:00 EDT, Dry Weight Start Date: 08/20/19 Status: Orderedinsulin glargine 100 u/ml subcutaneous solution See Instructions, 40 units Subcutaneous Injection Daily, # 15 mL, 2 Refills, Maintenance, 07/16/19 15:18:00 EST, Solution, [facility] #30200, 158, cm, 07/11/19 10:20:00 EST, Height, 81.8, [...] 3 Refills, Maintenance, 10/31/19 19:17:00 EDT, Tablet, [facility] #40239, 158, cm, 09/05/19 10:23:00 EDT, Height, 83.5, kg, 08/20/19 19:07:00 EDT, Dry Weight Start Date: 10/31/19 Status: OrderedLantus 100 u/ml subcutaneous solution See Instructions, Subcutaneous Infusion Daily rotate injection sites, # 15 mL, 0 Refills, Maintenance, 07/16/19 13:29:00 EST, [facility] #27027, 158, cm, 07/11/19 10:20:00 EST, Height, 81.8, kg, 06/16/19 10:59:00 EST, Dry Weight Start Date: 07/16/19 Status: OrderedLantus Solostar Pen 100 units/mL subcutaneous solution 70 unit, Subcutaneous Infusion, Daily, # 15 mL, 11 Refills, Maintenance, 10/31/19 19:17:00 EDT, [facility] #32436, 158, cm, 09/05/19 10:23:00 EDT, Height, 83.5, kg, 08/20/19 19:07:00 EDT, DryWeight Start Date: 10/31/19 Status: Orderedlisinopril 5 mg oral tablet 1 tablet = 5 mg, By Mouth, Daily, 0 Refills, Maintenance Start Date: 06/25/13 Status: OrderedZithromax 250 mg oral tablet 1 pack/packet, By Mouth, Once, # 6 tablet, 0 Refills, Soft Stop, 08/01/20 13:39:00 EST, Tablet, [facility] #83199, Partial fill upon patient request if the prescription is for a schedule II opioid drug., 158, cm, 08/01/20 13:03:00 EST, [place]... Start Date: 08/01/20 Status: Ordered Social History Social History Type Response Smoking Status Never (less than 100 in life time) entered on: 08/05/18 Sex
--- OUTSIDE RECORDS SUMMARY | 2022-04-01 19:35 | XMS_ITS | Continuity of Care Document ---
:1965 Author Organization [facility] Address [address] [place] [address]- Care Team Providers Name Role Phone Zulay Peña Primary Care Physician Encounter [facility] [place] Date(s): 08/11/21 - 09/10/21 [facility] [address] [place], [place] [address] Attending Physician: Alexis Sierra Admitting Physician: Alexis Sierra Referring Physician: [id number] Referring Physician: Janna Garner Allergies, Adverse Reactions, Alerts Substance Reaction Severity Status penicillin [D]Nausea Active morphine Dizziness/Vertigo Active Medications albuterol 90 mcg/inh inhalation powder 2 puffs, Inhalation, Every 6 hours, PRN as needed, # 1 each, 0 Refills, Maintenance, 06/16/19 11:18:00 EST, Powder, [facility] #[id number], 2 puffs Inhalation Every 6 hours,PRN:as needed, 158, cm,06/16/19 10:59:00 EST, Height, 81.8, kg, 06/16/19... Start Date: 06/16/19 Status: Orderedalbuterol CFC free 90 mcg/inh inhalation aerosol 2, puffs, Inhalation, Every 4 hours, PRN, # 1 each, Refills 0, Tot. Refills 0, Maintenance, 05/03/1912:15:50 EST, Aerosol, Route to Pharmacy Electronically, [id number], [facility] #[id number] Start Date: 05/03/19 Stop Date: 05/17/19 Status: Orderedalbuterol CFC free 90 mcg/inh inhalation aerosol 2, puffs, Inhalation, Every 4 hours, PRN, # 1 each, Refills 0, Tot. Refills 0, Maintenance, 05/31/1911:47:00 EST, Aerosol, Route to Pharmacy Electronically, [id number], [facility] #[id number], 158, cm, 05/31/19 11:15:00... Start Date: 05/31/19 Stop Date: 06/07/19 Status: Orderedalbuterol-ipratropium 3 mg-0.5 mg/3 ml inhalation solution 3 mL, Inhalation, 4 times a day, # 30 each, 0 Refills, Maintenance, 06/16/19 11:19:00 EST, [place],[facility] #[id number], 3 mL Inhalation 4 times a day, [...] 5 Refills, Maintenance, 07/16/19 13:29:00 EST, Tablet, [facility] #56550, 158, cm, 07/11/19 10:20:00 EST, Height, 81.8, kg, 06/16/19 10:59:00 EST, Dry Weight Start Date: 07/16/19 Status: Orderedcetirizine-pseudoephedrine 5 mg-120 mg oral tablet, extended release 1 tablet, By Mouth, 2 times a day, PRN as needed for congestion, # 30 tablet, 0 Refills, Maintenance, 08/20/19 19:29:00 EDT, ER Tablet, [facility] #07379, 1 tablet By Mouth 2 times a day,PRN:as needed for congestion, 158, cm, 08/20/19 19:07:... Start Date: 08/20/19 Status: OrderedFlonase 50 mcg/inh nasal spray 1 sprays, Nares, Both, 2 times a day, # 16 Gm, 0 Refills, Maintenance, 08/01/20 13:39:00 EST, [place],[facility] #[id number], Partial fill upon patient request if the [...] Gm, 0 Refills, Maintenance, 08/20/19 19:28:00 EDT, [place], [facility] #60537, 1 sprays Nares, Both Daily in AM, 158, cm, 08/20/19 19:07:00 EDT, Height,83.5, kg, 08/20/19 19:07:00 EDT, Dry Weight Start Date: 08/20/19 Status: Orderedinsulin glargine 100 u/ml subcutaneous solution See Instructions, 40 units Subcutaneous Injection Daily, # 15 mL, 2 Refills, Maintenance, 07/16/19 15:18:00 EST, [place], [facility] #[id number], 158, cm, 07/11/19 10:20:00 EST, Height, 81.8, [...] 3 Refills, Maintenance, 10/31/19 19:17:00 EDT, Tablet, [facility] #16805, 158, cm, 09/05/19 10:23:00 EDT, Height, 83.5, kg, 08/20/19 19:07:00 EDT, Dry Weight Start Date: 10/31/19 Status: OrderedLantus 100 u/ml subcutaneous solution See Instructions, Subcutaneous Infusion Daily rotate injection sites, # 15 mL, 0 Refills, Maintenance, 07/16/19 13:29:00 EST, [facility] #[id number], 158, cm, 07/11/19 10:20:00 EST, Height, 81.8, kg, 06/16/19 10:59:00 EST, Dry Weight Start Date: 07/16/19 Status: OrderedLantus Solostar Pen 100 units/mL subcutaneous solution 70 unit, Subcutaneous Infusion, Daily, # 15 mL, 11 Refills, Maintenance, 10/31/19 19:17:00 EDT, [facility] #[id number], 158, cm, 09/05/19 10:23:00 EDT, Height, 83.5, kg, 08/20/19 19:07:00 EDT, DryWeight Start Date: 10/31/19 Status: Orderedlisinopril 5 mg oral tablet 1 tablet = 5 mg, By Mouth, Daily, 0 Refills, Maintenance Start Date: 06/25/13 Status: OrderedZithromax 250 mg oral tablet 1 pack/packet, By Mouth, Once, # 6 tablet, 0 Refills, Soft Stop, 08/01/20 13:39:00 EST, Tablet, [facility] #[id number], Partial fill upon patient request if the prescription is for a schedule II opioid drug., 158, cm, 08/01/20 13:03:00 EST, Heigh... Start Date: 08/01/20 Status: Ordered Social History Social History Type Response Smoking Status Never (less than 100 in life time) entered on: 08/05/18 Sex
--- OUTSIDE RECORDS SUMMARY | 2022-04-01 19:36 | XMS_ITS | Continuity of Care Document ---
:1965 Author Organization [facility] Address [address] [place] [address]- Care Team Providers Name Role Phone Zulay Peña Primary Care Physician Encounter [facility] [place] Date(s): 08/20/19 - 08/30/19 [facility] [address] [place] [address]- [facility] Attending Physician: Alexis Sierra Admitting Physician: Admtr, [id number] Referring Physician: tr, Ar8 Referring Physician: Janna Garner Allergies, Adverse Reactions, Alerts Substance Reaction Severity Status penicillin [D]Nausea Active morphine Dizziness/Vertigo Active Medications albuterol 90 mcg/inh inhalation powder 2 puffs, Inhalation, Every 6 hours, PRN as needed, # 1 each, 0 Refills, Maintenance, 06/16/19 11:18:00 EST, Powder, [facility] #[id number], 2 puffs Inhalation Every 6 hours,PRN:as needed, 158, cm,06/16/19 10:59:00 EST, Height, 81.8, kg, 06/16/19... Start Date: 06/16/19 Status: Orderedalbuterol CFC free 90 mcg/inh inhalation aerosol 2, puffs, Inhalation, Every 4 hours, PRN, # 1 each, Refills 0, Tot. Refills 0, Maintenance, 05/03/1912:15:50 EST, Aerosol, Route to Pharmacy Electronically, [id number], [facility] #[id number] Start Date: 05/03/19 Stop Date: 05/17/19 Status: Orderedalbuterol CFC free 90 mcg/inh inhalation aerosol 2, puffs, Inhalation, Every 4 hours, PRN, # 1 each, Refills 0, Tot. Refills 0, Maintenance, 05/31/1911:47:00 EST, Aerosol, Route to Pharmacy Electronically, [id number], [facility] #61918, 158, cm, 05/31/19 11:15:00... Start Date: 05/31/19 Stop Date: 06/07/19 Status: Orderedalbuterol-ipratropium 3 mg-0.5 mg/3 ml inhalation solution 3 mL, Inhalation, 4 times a day, # 30 each, 0 Refills, Maintenance, 06/16/19 11:19:00 EST, [place],[facility] #[id number], 3 mL Inhalation 4 times a day, [...] 5 Refills, Maintenance, 07/16/19 13:29:00 EST, Tablet, [facility] #[id number], 158, cm, 07/11/19 10:20:00 EST, Height, 81.8, kg, 06/16/19 10:59:00 EST, Dry Weight Start Date: 07/16/19 Status: Orderedcetirizine-pseudoephedrine 5 mg-120 mg oral tablet, extended release 1 tablet, By Mouth, 2 times a day, PRN as needed for congestion, # 30 tablet, 0 Refills, Maintenance, 08/20/19 19:29:00 EDT, ER Tablet, [facility] #55679, 1 tablet By Mouth 2 times a [...] Gm, 0 Refills, Maintenance, 08/20/19 19:28:00 EDT, [place], [facility] #94677, 1 sprays Nares, Both Daily in AM, 158, cm, 08/20/19 19:07:00 EDT, Height,83.5, kg, 08/20/19 19:07:00 EDT, Dry Weight Start Date: 08/20/19 Status: Orderedinsulin glargine 100 u/ml subcutaneous solution See Instructions, 40 units Subcutaneous Injection Daily, # 15 mL, 2 Refills, Maintenance, 07/16/19 15:18:00 EST, Solution, [facility] #79901, 158, cm, 07/11/19 10:20:00 EST, Height, 81.8, [...] mL, 0 Refills, Maintenance, 07/16/19 13:29:00 EST, [facility] #82163, 158, cm, 07/11/19 10:20:00 EST, Height, 81.8, kg, 06/16/19 10:59:00 EST, Dry Weight Start Date: 07/16/19 Status: OrderedLantus Solostar Pen 100 units/mL subcutaneous solution 70 unit, Subcutaneous Infusion, Daily, # 15 mL, 11 Refills, Maintenance, 07/18/19 9:56:00 EST, [facility] #[id number], 158, cm, 07/11/19 10:20:00 EST, Height, 81.8, [...]
--- OUTSIDE RECORDS SUMMARY | 2022-04-01 19:36 | XMS_ITS | Continuity of Care Document ---
:[address] [facility] Address [address] [place] [address]- Care Team Providers Name Role Phone Zulay Peña Primary Care Physician Encounter [facility] [place] Date(s): 08/23/20 - 09/22/20 [facility] [address] [place] [address]- Attending Physician: Admtr, Ar8 Admitting Physician: Admtr, Ar8 Referring Physician: Admtr, Ar8 Allergies, Adverse Reactions, Alerts Substance Reaction Severity Status penicillin [D]Nausea Active morphine Dizziness/Vertigo Active Medications albuterol 90 mcg/inh inhalation powder 2 puffs, Inhalation, Every 6 hours, PRN as needed, # 1 each, 0 Refills, Maintenance, 06/16/19 11:18:00 EST, Powder, [facility] #98389, 2 puffs Inhalation Every 6 hours,PRN:as needed, 158, cm,06/16/19 10:59:00 EST, Height, 81.8, kg, 06/16/19... Start Date: 06/16/19 Status: Orderedalbuterol CFC free 90 mcg/inh inhalation aerosol 2, puffs, Inhalation, Every 4 hours, PRN, # 1 each, Refills 0, Tot. Refills 0, Maintenance, 05/03/1912:15:50 EST, Aerosol, Route to Pharmacy Electronically, [id number], [facility] #[id number] Start Date: 05/03/19 Stop Date: 05/17/19 Status: Orderedalbuterol CFC free 90 mcg/inh inhalation aerosol 2, puffs, Inhalation, Every 4 hours, PRN, # 1 each, Refills 0, Tot. Refills 0, Maintenance, 05/31/1911:47:00 EST, Aerosol, Route to Pharmacy Electronically, [id number], [facility] #11313, 158, cm, 05/31/19 11:15:00... Start Date: 05/31/19 Stop Date: 06/07/19 Status: Orderedalbuterol-ipratropium 3 mg-0.5 mg/3 ml inhalation solution 3 mL, Inhalation, 4 times a day, # 30 each, 0 Refills, Maintenance, 06/16/19 11:19:00 EST, [place],[facility] #99397, 3 mL Inhalation 4 times a day, [...] 5 Refills, Maintenance, 07/16/19 13:29:00 EST, Tablet, [facility] #13296, 158, cm, 07/11/19 10:20:00 EST, Height, 81.8, kg, 06/16/19 10:59:00 EST, Dry Weight Start Date: 07/16/19 Status: Orderedcetirizine-pseudoephedrine 5 mg-120 mg oral tablet, extended release 1 tablet, By Mouth, 2 times a day, PRN as needed for congestion, # 30 tablet, 0 Refills, Maintenance, 08/20/19 19:29:00 EDT, ER Tablet, [facility] #26888, 1 tablet By Mouth 2 times a day,PRN:as needed for congestion, 158, cm, 08/20/19 19:07:... Start Date: 08/20/19 Status: OrderedFlonase 50 mcg/inh nasal spray 1 sprays, Nares, Both, 2 times a day, # 16 Gm, 0 Refills, Maintenance, 08/01/20 13:39:00 EST, [place],[facility] #07188, Partial fill upon patient request if the [...] Gm, 0 Refills, Maintenance, 08/20/19 19:28:00 EDT, [place], [facility] #10930, 1 sprays Nares, Both Daily in AM, 158, cm, 08/20/19 19:07:00 EDT, Height,83.5, kg, 08/20/19 19:07:00 EDT, Dry Weight Start Date: 08/20/19 Status: Orderedinsulin glargine 100 u/ml subcutaneous solution See Instructions, 40 units Subcutaneous Injection Daily, # 15 mL, 2 Refills, Maintenance, 07/16/19 15:18:00 EST, Solution, [facility] #[id number], 158, cm, 07/11/19 10:20:00 EST, Height, 81.8, [...] 3 Refills, Maintenance, 10/31/19 19:17:00 EDT, Tablet, [facility] #85098, 158, cm, 09/05/19 10:23:00 EDT, Height, 83.5, kg, 08/20/19 19:07:00 EDT, Dry Weight Start Date: 10/31/19 Status: OrderedLantus 100 u/ml subcutaneous solution See Instructions, Subcutaneous Infusion Daily rotate injection sites, # 15 mL, 0 Refills, Maintenance, 07/16/19 13:29:00 EST, [facility] #65796, 158, cm, 07/11/19 10:20:00 EST, Height, 81.8, kg, 06/16/19 10:59:00 EST, Dry Weight Start Date: 07/16/19 Status: OrderedLantus Solostar Pen 100 units/mL subcutaneous solution 70 unit, Subcutaneous Infusion, Daily, # 15 mL, 11 Refills, Maintenance, 10/31/19 19:17:00 EDT, [facility] #69638, 158, cm, 09/05/19 10:23:00 EDT, Height, 83.5, kg, 08/20/19 19:07:00 EDT, DryWeight Start Date: 10/31/19 Status: Orderedlisinopril 5 mg oral tablet 1 tablet = 5 mg, By Mouth, Daily, 0 Refills, Maintenance Start Date: 06/25/13 Status: OrderedZithromax 250 mg oral tablet 1 pack/packet, By Mouth, Once, # 6 tablet, 0 Refills, Soft Stop, 08/01/20 13:39:00 EST, Tablet, [facility] #25267, Partial fill upon patient request if the prescription is for a schedule II opioid drug., 158, cm, 08/01/20 13:03:00 EST, Heigh... Start Date: 08/01/20 Status: Ordered Social History Social History Type Response Smoking Status Never (less than 100 in life time) entered on: 08/05/18 Sex
--- OUTSIDE RECORDS SUMMARY | 2022-04-01 19:36 | XMS_ITS | Continuity of Care Document ---
:1965 Author Organization [facility] Address [address] [place] [address]- Care Team Providers Name Role Phone Zulay Peña Primary Care Physician Encounter [facility] [place] Date(s): 05/20/21 - 05/27/21 [facility] [address] [place] [address]- Encounter Diagnosis TMJ arthralgia (Discharge Diagnosis) - 05/20/21 Attending Physician: Maryam Reyez MD Referring Physician: Zulay Peña Allergies, Adverse Reactions, Alerts Substance Reaction Severity Status penicillin [D]Nausea Active morphine Dizziness/Vertigo Active Medications albuterol 90 mcg/inh inhalation powder 2 puffs, Inhalation, Every 6 hours, PRN as needed, # 1 each, 0 Refills, Maintenance, 06/16/19 11:18:00 EST, Powder, [facility] #[id number], 2 puffs Inhalation Every 6 hours,PRN:as needed, 158, cm,06/16/19 10:59:00 EST, Height, 81.8, kg, 06/16/19... Start Date: 06/16/19 Status: Orderedalbuterol CFC free 90 mcg/inh inhalation aerosol 2, puffs, Inhalation, Every 4 hours, PRN, # 1 each, Refills 0, Tot. Refills 0, Maintenance, 05/03/1912:15:50 EST, Aerosol, Route to Pharmacy Electronically, [id number], [facility] #[id number] Start Date: 05/03/19 Stop Date: 05/17/19 Status: Orderedalbuterol CFC free 90 mcg/inh inhalation aerosol 2, puffs, Inhalation, Every 4 hours, PRN, # 1 each, Refills 0, Tot. Refills 0, Maintenance, 05/31/1911:47:00 EST, Aerosol, Route to Pharmacy Electronically, [id number], [facility] #00697, 158, cm, 05/31/19 11:15:00... Start Date: 05/31/19 Stop Date: 06/07/19 Status: Orderedalbuterol-ipratropium 3 mg-0.5 mg/3 ml inhalation solution 3 mL, Inhalation, 4 times a day, # 30 each, 0 Refills, Maintenance, 06/16/19 11:19:00 EST, [place],[facility] #12261, 3 mL Inhalation 4 times a day, [...] 5 Refills, Maintenance, 07/16/19 13:29:00 EST, Tablet, [facility] #[id number], 158, cm, 07/11/19 10:20:00 EST, Height, 81.8, kg, 06/16/19 10:59:00 EST, Dry Weight Start Date: 07/16/19 Status: Orderedcetirizine-pseudoephedrine 5 mg-120 mg oral tablet, extended release 1 tablet, By Mouth, 2 times a day, PRN as needed for congestion, # 30 tablet, 0 Refills, Maintenance, 08/20/19 19:29:00 EDT, ER Tablet, [facility] #62681, 1 tablet By Mouth 2 times a day,PRN:as needed for congestion, 158, cm, 08/20/19 19:07:... Start Date: 08/20/19 Status: OrderedFlonase 50 mcg/inh nasal spray 1 sprays, Nares, Both, 2 times a day, # 16 Gm, 0 Refills, Maintenance, 08/01/20 13:39:00 EST, [place],[facility] #34243, Partial fill upon patient request if the [...] Gm, 0 Refills, Maintenance, 08/20/19 19:28:00 EDT, [place], [facility] #[id number], 1 sprays Nares, Both Daily in AM, 158, cm, 08/20/19 19:07:00 EDT, Height,83.5, kg, 08/20/19 19:07:00 EDT, Dry Weight Start Date: 08/20/19 Status: Orderedinsulin glargine 100 u/ml subcutaneous solution See Instructions, 40 units Subcutaneous Injection Daily, # 15 mL, 2 Refills, Maintenance, 07/16/19 15:18:00 EST, [place], [facility] #84700, 158, cm, 07/11/19 10:20:00 EST, Height, 81.8, [...] 3 Refills, Maintenance, 10/31/19 19:17:00 EDT, Tablet, [facility] #32754, 158, cm, 09/05/19 10:23:00 EDT, Height, 83.5, kg, 08/20/19 19:07:00 EDT, Dry Weight Start Date: 10/31/19 Status: OrderedLantus 100 u/ml subcutaneous solution See Instructions, Subcutaneous Infusion Daily rotate injection sites, # 15 mL, 0 Refills, Maintenance, 07/16/19 13:29:00 EST, [facility] #61817, 158, cm, 07/11/19 10:20:00 EST, Height, 81.8, kg, 06/16/19 10:59:00 EST, Dry Weight Start Date: 07/16/19 Status: OrderedLantus Solostar Pen 100 units/mL subcutaneous solution 70 unit, Subcutaneous Infusion, Daily, # 15 mL, 11 Refills, Maintenance, 10/31/19 19:17:00 EDT, [facility] #90700, 158, cm, 09/05/19 10:23:00 EDT, Height, 83.5, kg, 08/20/19 19:07:00 EDT, DryWeight Start Date: 10/31/19 Status: Orderedlisinopril 5 mg oral tablet 1 tablet = 5 mg, By Mouth, Daily, 0 Refills, Maintenance Start Date: 06/25/13 Status: Orderednaproxen 500 mg oral tablet 1 tablet = 500 mg, By Mouth, 2 times a day, PRN Pain , Moderate, for 14 days, with food, # 30 tablet, 0 Refills, Acute 06/03/21 14:27:00 EST, 05/20/21 14:27:00 EST, Tablet, [facility] #49333,Partial fill upon patient request if the prescrip... Start Date: 05/20/21 Stop Date: 06/03/21 Status: OrderedZithromax 250 mg oral tablet 1 pack/packet, By Mouth, Once, # 6 tablet, 0 Refills, Soft Stop, 08/01/20 13:39:00 EST, Tablet, [facility] #77315, Partial fill upon patient request if the prescription is for a schedule II opioid drug., 158, cm, 08/01/20 13:03:00 Linda EMMANUEL... Start Date: 08/01/20 Status: Ordered Problem List Diagnosis Diagnosis Type Effective Dates Health Status Clinical In formant Service TMJ arthralgia Discharge 05/20/21 Diagnosis Vital Signs Most recent to oldest [Reference Range]: 1 Height 158 cm (05/20/21 2:10 PM) Oxygen Saturation [94-100 %] 99 % (05/20/21 2:10 PM) Pulse Rate [55-90 bpm] 89 bpm (05/20/21 2:10 PM) Blood Pressure [90-138/55-84 mm Hg] 130/71 mm Hg (05/20/21 2:10 PM) Respiratory Rate [16-30 br/min] 20 br/min (05/20/21 2:10 PM) Temperature [96.8-100.4 DegF] 98.8 DegF (05/20/21 2:10 PM) Mode of Delivery (Oxygen) Room air (05/20/21 2:10 PM) Blood pressure sites Arm, left (05/20/21 2:10 PM) Temperature Route Temporal (05/20/21 2:10 PM) Social History Social History Type Response Smoking Status Never (less than 100 in life time) entered on: 08/05/18 Sex
--- OUTSIDE RECORDS SUMMARY | 2022-04-01 19:36 | XMS_ITS | Continuity of Care Document ---
:[address] [facility] Address [address] [place] [id number]- Care Team Providers Name Role Phone Zulay Peña Primary Care Physician Encounter [facility] [place] Date(s): 06/20/21 - 07/20/[address] [address] Attending Physician: Admtr, Ar8 Admitting Physician: Admtr, Ar8 Referring Physician: Admtr, Ar8 Allergies, Adverse Reactions, Alerts Substance Reaction Severity Status penicillin [D]Nausea Active morphine Dizziness/Vertigo Active Medications albuterol 90 mcg/inh inhalation powder 2 puffs, Inhalation, Every 6 hours, PRN as needed, # 1 each, 0 Refills, Maintenance, 06/16/19 11:18:00 EST, Powder, [facility] #[id number], 2 puffs Inhalation Every 6 hours,PRN:as needed, 158, cm,06/16/19 10:59:00 EST, Height, 81.8, kg, 06/16/19... Start Date: 06/16/19 Status: Orderedalbuterol CFC free 90 mcg/inh inhalation aerosol 2, puffs, Inhalation, Every 4 hours, PRN, # 1 each, Refills 0, Tot. Refills 0, Maintenance, 05/03/1912:15:50 EST, Aerosol, Route to Pharmacy Electronically, [id number], [facility] #[id number] Start Date: 05/03/19 Stop Date: 05/17/19 Status: Orderedalbuterol CFC free 90 mcg/inh inhalation aerosol 2, puffs, Inhalation, Every 4 hours, PRN, # 1 each, Refills 0, Tot. Refills 0, Maintenance, 05/31/1911:47:00 EST, Aerosol, Route to Pharmacy Electronically, [id number], [facility] #[id number], 158, cm, 05/31/19 11:15:00... Start Date: 05/31/19 Stop Date: 06/07/19 Status: Orderedalbuterol-ipratropium 3 mg-0.5 mg/3 ml inhalation solution 3 mL, Inhalation, 4 times a day, # 30 each, 0 Refills, Maintenance, 06/16/19 11:19:00 EST, [place],[facility] #[id number], 3 mL Inhalation 4 times a day, [...] 5 Refills, Maintenance, 07/16/19 13:29:00 EST, Tablet, [facility] #[id number], 158, cm, 07/11/19 10:20:00 EST, Height, 81.8, kg, 06/16/19 10:59:00 EST, Dry Weight Start Date: 07/16/19 Status: Orderedcetirizine-pseudoephedrine 5 mg-120 mg oral tablet, extended release 1 tablet, By Mouth, 2 times a day, PRN as needed for congestion, # 30 tablet, 0 Refills, Maintenance, 08/20/19 19:29:00 EDT, ER Tablet, [facility] #18791, 1 tablet By Mouth 2 times a day,PRN:as needed for congestion, 158, cm, 08/20/19 19:07:... Start Date: 08/20/19 Status: OrderedFlonase 50 mcg/inh nasal spray 1 sprays, Nares, Both, 2 times a day, # 16 Gm, 0 Refills, Maintenance, 08/01/20 13:39:00 EST, [place],[facility] #60610, Partial fill upon patient request if the [...] Gm, 0 Refills, Maintenance, 08/20/19 19:28:00 EDT, [place], [facility] #[id number], 1 sprays Nares, Both Daily in AM, 158, cm, 08/20/19 19:07:00 EDT, Height,83.5, kg, 08/20/19 19:07:00 EDT, Dry Weight Start Date: 08/20/19 Status: Orderedinsulin glargine 100 u/ml subcutaneous solution See Instructions, 40 units Subcutaneous Injection Daily, # 15 mL, 2 Refills, Maintenance, 07/16/19 15:18:00 EST, [place], [facility] #93505, 158, cm, 07/11/19 10:20:00 EST, Height, 81.8, [...] 3 Refills, Maintenance, 10/31/19 19:17:00 EDT, Tablet, [facility] #[id number], 158, cm, 09/05/19 10:23:00 EDT, Height, 83.5, kg, 08/20/19 19:07:00 EDT, Dry Weight Start Date: 10/31/19 Status: OrderedLantus 100 u/ml subcutaneous solution See Instructions, Subcutaneous Infusion Daily rotate injection sites, # 15 mL, 0 Refills, Maintenance, 07/16/19 13:29:00 EST, [facility] #54609, 158, cm, 07/11/19 10:20:00 EST, Height, 81.8, kg, 06/16/19 10:59:00 EST, Dry Weight Start Date: 07/16/19 Status: OrderedLantus Solostar Pen 100 units/mL subcutaneous solution 70 unit, Subcutaneous Infusion, Daily, # 15 mL, 11 Refills, Maintenance, 10/31/19 19:17:00 EDT, [facility] #[id number], 158, cm, 09/05/19 10:23:00 EDT, Height, 83.5, kg, 08/20/19 19:07:00 EDT, DryWeight Start Date: 10/31/19 Status: Orderedlisinopril 5 mg oral tablet 1 tablet = 5 mg, By Mouth, Daily, 0 Refills, Maintenance Start Date: 06/25/13 Status: OrderedZithromax 250 mg oral tablet 1 pack/packet, By Mouth, Once, # 6 tablet, 0 Refills, Soft Stop, 08/01/20 13:39:00 EST, Tablet, [facility] #[id number], Partial fill upon patient request if the prescription is for a schedule II opioid drug., 158, cm, 08/01/20 13:03:00 EST, Heigh... Start Date: 08/01/20 Status: Ordered Social History Social History Type Response Smoking Status Never (less than 100 in life time) entered on: 08/05/18 Sex
[2022-04-01] MEDS: cephALEXin 500 MG CAPSULE PO (19:45)
== END 2022-04-01 19:48 | disposition home or self-care (01) ==
PROVIDERS: Emergency Provider Emergency Medicine
DX: L03.031 Cellulitis of right toe (principal); E11.9 Type 2 diabetes mellitus without complications
CPT/HCPCS: 73620; 99283

== ENCOUNTER 2022-04-29 10:21 | Emergency (ER) | payer OTHER, SELFPAY ==
[2022-04-29 10:37] VITALS: BP 109/67; PULSE 95; RESP 18; TEMP 36.6; O2SAT 96; BMI 32.5
--- NOTE | 2022-04-29 12:37 | ED_ITS ---
HPI - General Adult General Chief complaint: General Medical Stated complaint: headache, leg pain Time Seen by Provider: 04/29/22 12:09 Source: patient Mode of arrival: ambulatory Limitations: no limitations History of Present Illness HPI narrative: Patient is a 56-year-old female who presents to the emergency department for evaluation of left-sided back pain and if his body aches. States her symptoms have been progressively worsening over the past 4 days. Denies any precipitating injury or fall. She reports a history of fibromyalgia, for which she is prescribed cyclobenzaprine, has been taking Tylenol no in addition to this without significant improvement. Pain radiates from left lower back to the bilateral legs. Denies fevers, chills, burning with micturition, urinary frequency, urgency, hesitancy, bladder or bowel dysfunction, numbness or tingling of the perineum or bilateral legs. Denies any recent surgical procedures, any known immune compromising conditions, personal history of cancer, or IV drug usage. Related Data Previous Rx's Medication Instructions Recorded cephalexin 500 mg tablet 500 mg PO Q6H 10 days #40 tabs 04/01/22 doxycycline hyclate 100 mg capsule 100 mg PO BID 10 days #20 caps 04/01/22 lidocaine 5 % topical patch 1 patch topical DAILY #15 ea 04/29/22 (Lidoderm) Allergies Allergy/AdvReac Type Severity Reaction Status Date / Time morphine Allergy Vomiting Verified 04/01/22 17:22 Penicillins Allergy Headache Verified 04/01/22 17:22 Review of Systems Review of Systems: Constitutional: No weight loss, fever, chills, weakness or fatigue. HEENT: No visual loss, blurred vision, double vision. No hearing loss, sneezing, congestion, runny nose or sore throat. Skin: No rash or itching. Cardiovascular: No chest pain, chest pressure or chest discomfort. No palpitations or pedal edema. Respiratory: No shortness of breath, cough or sputum production. Gastrointestinal: No anorexia, nausea, vomiting or diarrhea. No abdominal pain or blood in stool. Genitourinary: No burning micturition. No urinary frequency or incontinence. Neurologic: No headache, dizziness, syncope, unilateral weakness, ataxia, numbness or tingling in the extremities. No change in bowel or bladder control. Musculoskeletal: + Back pain as noted in HPI. No joint pain or stiffness. Hematologic: No bleeding or bruising. Yes all other systems are reviewed and are negative [facility] Past Medical History Attestation statement: The following information was validated with the patient. Source: old records reviewed Social History Social History Advance Directives: No Physical Exam ED Vital Signs: Vital Signs - 24 hr 04/29/22 10:37 Temperature 98 F Pulse Rate 95 Respiratory Rate 18 Blood Pressure 109/67 Pulse Oximetry 96 Oxygen Delivery Method Room Air BMI result Body Mass Index 32.5 Appearance: Alert.?Oriented to person, place and time. No acute distress.?Normal affect. Eyes: Pupils equal, round and reactive to light.? ENT: Pharynx normal.?? Neck: Normal inspection.? Neck supple.?? CVS: Heart sounds normal. Normal heart rate and rhythm.? Pulses normal; bilateral radial pulses 2+, bilateral posterior tibial/dorsalis pedis pulses 2+. ? Respiratory: No respiratory distress.? Lung sounds clear to auscultation bilaterally?? Abdomen: Soft and non-tender. Normoactive bowel sounds. No CVA tenderness.?? Skin: Skin warm and dry.? Normal skin color.? Extremities: No lower extremity edema.? No calf ttp? Back: + mild paraspinal muscular tenderness from left lumbar region to coccyx. No CVA tenderness. No midline spinal tenderness, step-off's, or deformity. Full ROM intact in bilateral lower extremities. Straight leg test positive on right; Straight leg test positive on left. No rashes, lesions, areas of induration or fluctuance, or signs of infection noted., Neuro: Moves all extremities spontaneously. 5/5 strength in hip extension/flexion, abduction, adduction. Sensation to light touch intact bilaterally. Patellar and Achilles reflex 2+ bilaterally. No ataxia, gait normal and steady.. No focal neuro deficits. Course Course Course Narrative: Patient is a 56-year-old female with past medical history of fibromyalgia, hyperlipidemia, diabetes, hypertension presents emergency department evaluation back pain. She is overall well-appearing, stable vital signs. Ambulatory with a steady gait. Based on history and physical examination Pain is most consistent with muscular pain, although cannot completely exclude herniated disc. On neurological exam there are no deficits. Not consistent with spinal fracture, spinal infection, epidural abscess, AAA, epidural abscess, or dissection. No high risk past medical history including incontinence, fever, immunosuppression, recent surgery or lumbar puncture, coagulopathy, significant trauma, recent unintentional weight loss, pulsatile mass, history of cancer, history of TB, history of IV drug use that would warrant MRI or CT. Not consistent with pyelonephritis, urinary tract infection, renal calculi, pelvic infection, appendicitis, diverticulitis. On exam no concern for cauda equina syndrome. No imaging is currently indicated at this time. Plan for discharge home with a prescription for Lidoderm patch as this was helpful for pain while in the emergency department, and follow-up with primary care provider, and marty chamberlain agreed with plan. Medications Administered Discontinued Medications Generic Name Dose Route Start Last Admin Trade Name Freq PRN Reason Stop Dose Admin Lidocaine 1 patch 04/29/22 12:48 04/29/22 12:55 Lidocaine 4 % Patch Adh..Patch TRANSDERMA 04/29/22 12:49 1 patch ONCE ONE Administration Protocol Naproxen 500 mg 04/29/22 12:48 04/29/22 12:54 Naproxen 500 Mg Tablet PO 04/29/22 12:49 500 mg ONCE ONE Administration Medical Decision Making Medical Records Medical records reviewed: Yes I reviewed the patient's medical records. Lab Data Lab results reviewed: Yes I reviewed the patient's lab results. Labs: Lab Results 04/29/22 Range/Units 12:56 Urine Color Yellow Urine Appearance Clear Urine pH 5.5 (5.0-9.0) Ur Specific [place] 1.025 (1.005-1.025) Urine Protein Negative (Neg-Trace) mg/dL Urine Glucose (UA) >=1000 H (Negative) mg/dL Urine Ketones Negative (Negative) mg/dL Urine Blood Negative (Negative) Urine Nitrite Negative (Negative) Ur Leukocyte Esterase Trace H (Negative) Urine RBC 0-2 (0-2) /HPF Urine WBC 6-10 H (0-5) /HPF Ur Squamous Epith Cells 3-5 (0-2) /HPF Urine Bacteria None Seen (None Seen) Hyaline Casts 0-2 (0-2) /LPF Discharge Plan Discharge Clinical Impression: Acute lumbar myofascial strain Patient Disposition: Home, Self-Care Instructions: Acute Low Back Pain (ED), R.I.C.E. Treatment (ED), Lower Back Exercises (ED) Additional Instructions: You can take ibuprofen 200 mg, 3 tablets (600mg) every 6-8 hours as needed for pain, in addition to Tylenol 500 mg, 2 tablets (1,000mg) every 4-6 hours as needed for pain, but not to exceed 3 doses daily (3,000mg).? A prescription for Lidoderm patch was sent to your pharmacy, please apply this area of most pain for 12 hours and leave off for 12 hours. Do not apply heating pad directly over this patch. Contact your primary care provider to arrange for a follow-up visit within the next week Return back to emergency department any new or worsening symptoms or concerns. Prescriptions: New lidocaine [Lidoderm] 5 % adhesive patch,medicated 1 patch topical DAILY Qty: 15 0RF Rx Instructions: leave on most painful area for up to 12 hrs No Action doxycycline hyclate 100 mg capsule 100 mg PO BID 10 Days Qty: 20 0RF cephalexin 500 mg tablet 500 mg PO Q6H 10 Days Qty: 40 0RF Referrals: Physician,Unknown J [Primary Care Provider] -
[2022-04-29] MEDS: NaPROXEN 500 MG TABLET PO (12:54)
[2022-04-29] MEDS: Lidocaine 4 % Patch ADH..PATCH 1 PATCH TRANSDERMA (12:55)
[2022-04-29 13:19] LABS: Appearance Urine Clear; Color Urine Yellow; Glucose Urine UA >=1000 mg/dL (Negative); Leukocyte Esterase Urine Trace (Negative); Nitrite Urine Negative (Negative); PH 5.5 (5.0-9.0); Specific Gravity - Urine 1.025 (1.005-1.025); UMIC TRIGGER UACC YES; Urine Blood Negative (Negative); Urine Ketones Negative (Negative); Urine Protein Negative (Neg-Trace)
[2022-04-29 13:24] LABS: Bacteria Urine None Seen (None Seen); Hyaline Casts Urine 0-2 /LPF (0-2); RBC Urine 0-2 /HPF (0-2); UACC Culture Trigger YES
== END 2022-04-29 14:20 | disposition home or self-care (01) ==
PROVIDERS: Nurse Practitioner Family; Emergency Provider Emergency Medicine Emergency Medical Services
DX: S39.012A Strain of muscle, fascia and tendon of lower back, initial encounter (principal); X58.XXXA Exposure to other specified factors, initial encounter; Y93.9 Activity, unspecified; Y92.9 Unspecified place or not applicable; Y99.9 Unspecified external cause status; Z79.899 Other long term (current) drug therapy
CPT/HCPCS: 81001; 87086; 99283

== ENCOUNTER 2022-06-02 18:32 | Emergency (ER) | payer OTHER, SELFPAY ==
--- NOTE | 2022-06-02 18:57 | ED.GENADULT ---
HPI - General Adult General Chief complaint: Back Pain/Injury <AGNIESZKA Garg - Last Filed: 06/02/22 19:07> Stated complaint: pain in back, nausea <AGNIESZKA Garg - Last Filed: 06/02/22 19:07> Time Seen by Provider: 06/02/22 21:29 <AGNIESZKA Garg - Last Filed: 06/02/22 19:07> Source: patient <Norberto Glover MD - Last Filed: 06/02/22 22:56> Mode of arrival: ambulatory <Norberto Glover MD - Last Filed: 06/02/22 22:56> Limitations: no limitations <Norberto Glover MD - Last Filed: 06/02/22 22:56> History of Present Illness HPI narrative: Patient with history of diabetes chronic back pain complaining of more pain the left lower back for last 4 weeks does have history of fibromyalgia patient went to [facility] on 05/[address] scan which was negative for hydronephrosis or kidney stone started on Flomax and diclofenac sodium patient also does also have paresthesia in lower extremities and hands for some time. No urinary complaints no abdominal pain no bladder or bowel incontinence no recent trauma no fever or chills <Norberto Glover MD - Last Filed: 06/02/22 22:56> Related Data Home medications: Previous Rx's Medication Instructions Recorded cephalexin 500 mg tablet 500 mg PO Q6H 10 days #40 tabs 04/01/22 doxycycline hyclate 100 mg capsule 100 mg PO BID 10 days #20 caps 04/01/22 lidocaine 5 % topical patch 1 patch topical DAILY #15 ea 04/29/22 (Lidoderm) cyclobenzaprine 10 mg tablet 10 mg PO Q8H #20 tabs 06/02/22 gabapentin 300 mg capsule 300 mg PO BEDTIME #30 caps 06/02/22 tramadol 50 mg tablet 50 mg PO Q6H PRN pain #20 tabs 06/02/22 <AGNIESZKA Garg - Last Filed: 06/02/22 19:07> Allergies/adverse reactions: Allergies Allergy/AdvReac Type Severity Reaction Status Date / Time morphine Allergy Vomiting Verified 04/01/22 17:22 Penicillins Allergy Headache Verified 04/01/22 17:22 <AGNIESZKA Garg - Last Filed: 06/02/22 19:07> Review of Systems Review of Systems: Yes all other systems are reviewed and are negative <Norberto Glover MD - Last Filed: 06/02/22 22:56> [facility] Social History Social History: Social History Advance Directives: No Advance Directives Information Provided: Yes <AGNIESZKA Garg - Last Filed: 06/02/22 19:07> Physical Exam ED Vital Signs: Vital Signs - 24 hr 06/02/22 18:59 Temperature 97.8 F Pulse Rate 115 H Respiratory Rate 18 Blood Pressure 147/92 H Pulse Oximetry 96 Oxygen Delivery Method Room Air BMI result Body Mass Index 31.1 <AGNIESZKA Garg - Last Filed: 06/02/22 19:07> Vital Signs - 24 hr 06/02/22 18:59 Temperature 97.8 F Pulse Rate 115 H Respiratory Rate 18 Blood Pressure 147/92 H Pulse Oximetry 96 Oxygen Delivery Method Room Air BMI result Body Mass Index 31.1 <Norberto Glover MD - Last Filed: 06/02/22 22:56> Appearance: Alert. Oriented X3. No acute distress. Eyes: PERRLA, No Nystagmus ENT: Pharynx normal. Oral Mucosa moist Neck: Normal inspection. Neck supple. CVS: Normal heart rate and rhythm. Pulses normal. Respiratory: No respiratory distress. Equal air entry bilateral, no wheezing/rales/rhonchi Abdomen: Soft and nontender. Bowel sounds are present, no mass palpable, no CVA tenderness Skin: Skin warm and dry. Normal skin color. Normal skin turgor. back: Diffuse tenderness left-sided lumbar area SLR negative no midline point tenderness patient ambulating steady gait Extremities: No lower extremity edema. No calf tenderness Neuro: Oriented X 3. No motor deficit. No sensory deficit.No cerebellar signs , cranial nerves II-XII intact <Norberto Glover MD - Last Filed: 06/02/22 22:56> Course Course Course Narrative: RME - 56 yo female with history of fibromyalgia, DM, HTN who presents to the ER for evaluation of left sided flank pain and middle back pain for a week. She reports having a CT scan done at [facility] that did not show any kidney stones but she was given 2 medications for possible stones she says. No urinary symptoms. She reports the pain has been constant and she has had dizziness, weakness and nausea. On review of records she was here for similar pain in April as well. Will start with lab workup and UA. Will try to see if we can get [facility] records. <AGNIESZKA Garg - Last Filed: 06/02/22 19:07> Medications Administered Discontinued Medications Generic Name Dose Route Start Last Admin Trade Name Freq PRN Reason Stop Dose Admin Gabapentin 300 mg 06/02/22 21:44 06/02/22 22:20 Gabapentin 300 Mg Capsule PO 06/02/22 21:45 300 mg ONCE ONE Administration Oxycodone HCl 5 mg 06/02/22 21:44 06/02/22 22:20 Oxycodone Hcl Immed Release 5 Mg Tablet PO 06/02/22 21:45 5 mg ONCE ONE Administration <AGNIESZKA Garg - Last Filed: 06/02/22 19:07> Medications Administered Discontinued Medications Generic Name Dose Route Start Last Admin Trade Name Freq PRN Reason Stop Dose Admin Gabapentin 300 mg 06/02/22 21:44 06/02/22 22:20 Gabapentin 300 Mg Capsule PO 06/02/22 21:45 300 mg ONCE ONE Administration Oxycodone HCl 5 mg 06/02/22 21:44 06/02/22 22:20 Oxycodone Hcl Immed Release 5 Mg Tablet PO 06/02/22 21:45 5 mg ONCE ONE Administration <Norberto Glover MD - Last Filed: 06/02/22 22:56> Medical Decision Making Medical Decision Making [facility] Narrative: Patient with fibromyalgia with chronic back pain CT scan negative for obstructive uropathy workup is negative will discharge patient home on tramadol and Flexeril and gabapentin for neuropathy <Norberto Glover MD - Last Filed: 06/02/22 22:56> Lab Data [facility] Lab Attestation statement: I reviewed the patient's lab results. <Norberto Glover MD - Last Filed: 06/02/22 22:56> Result Diagrams: : 06/02/22 21:21 06/02/22 21:21 <AGNIESZKA Garg - Last Filed: 06/02/22 19:07> Labs: Lab Results 06/02/22 06/02/22 Range/Units 21:21 21:21 WBC 7.8 (4.8-10.8) X10*3/uL RBC 5.21 (4.20-5.50) X10*6/uL Hgb 15.0 (12.0-16.0) g/dl Hct 45.0 (37.0-47.0) % MCV 86.4 (80.0-98.0) fL MCH 28.8 (27.0-33.0) pg MCHC 33.3 (31.0-35.0) g/dl RDW 14.2 (11.0-16.0) % Plt Count 225 (160-400) X10*3/uL MPV 10.4 (9.4-12.3) fL Immature Gran % (Auto) 0.3 (0.0-0.4) % Neut % (Auto) 63.7 (45-73) % Lymph % (Auto) 28.4 (20-40) % [place] % (Auto) 5.3 (2-11) % Eos % (Auto) 1.9 (0-4) % Baso % (Auto) 0.4 (0-2) % Lymph # (Auto) 2.2 (1.2-4.9) X10*3/uL [place] # (Auto) 0.4 (0.1-1.2) X10*3/uL Eos # (Auto) 0.2 (0.0-0.4) X10*3/uL Baso # (Auto) 0.0 (0.0-0.2) X10*3/uL Abs Immat Gran (auto) 0.02 (0.00-0.03) X10*3/uL Absolute Neuts (auto) 5.0 (2.0-8.3) x10*3/uL Absolute Nucleated RBC 0.000 (0.0-0.012) X10*3/uL Nucleated RBC % (auto) 0.0 (0.0-0.2) /100WBC Sodium 141 (135-145) mmol/L Potassium 4.3 (3.3-5.1) mmol/L Chloride 104 (96-108) mmol/L Carbon Dioxide 26 (22-29) mmol/L Anion Gap 15 (12-20) BUN 13 (9-16) mg/dL Creatinine 0.75 (0.5-1.4) mg/dL Estim Creat Clear Calc 79.6 Estimated GFR > 60 Random Glucose 145 H (60-115) mg/dL Calcium 10.0 (8.4-10.2) mg/dL Magnesium 2.2 (1.6-2.6) mg/dL Total Bilirubin 0.4 (0.0-1.0) mg/dL Direct Bilirubin < 0.2 (0.0-0.5) mg/dL AST 67 H (5-31) U/L ALT 83 H (0-31) U/L Alkaline Phosphatase 206 H (39-117) U/L Total Protein 7.7 (6.5-8.0) g/dL Albumin 4.4 (3.5-5.0) g/dL <AGNIESZKA Garg - Last Filed: 06/02/22 19:07> Lab Results 06/02/22 06/02/22 Range/Units 21:21 21:21 WBC 7.8 (4.8-10.8) X10*3/uL RBC 5.21 (4.20-5.50) X10*6/uL Hgb 15.0 (12.0-16.0) g/dl Hct 45.0 (37.0-47.0) % MCV 86.4 (80.0-98.0) fL MCH 28.8 (27.0-33.0) pg MCHC 33.3 (31.0-35.0) g/dl RDW 14.2 (11.0-16.0) % Plt Count 225 (160-400) X10*3/uL MPV 10.4 (9.4-12.3) fL Immature Gran % (Auto) 0.3 (0.0-0.4) % Neut % (Auto) 63.7 (45-73) % Lymph % (Auto) 28.4 (20-40) % [place] % (Auto) 5.3 (2-11) % Eos % (Auto) 1.9 (0-4) % Baso % (Auto) 0.4 (0-2) % Lymph # (Auto) 2.2 (1.2-4.9) X10*3/uL [place] # (Auto) 0.4 (0.1-1.2) X10*3/uL Eos # (Auto) 0.2 (0.0-0.4) X10*3/uL Baso # (Auto) 0.0 (0.0-0.2) X10*3/uL Abs Immat Gran (auto) 0.02 (0.00-0.03) X10*3/uL Absolute Neuts (auto) 5.0 (2.0-8.3) x10*3/uL Absolute Nucleated RBC 0.000 (0.0-0.012) X10*3/uL Nucleated RBC % (auto) 0.0 (0.0-0.2) /100WBC Sodium 141 (135-145) mmol/L Potassium 4.3 (3.3-5.1) mmol/L Chloride 104 (96-108) mmol/L Carbon Dioxide 26 (22-29) mmol/L Anion Gap 15 (12-20) BUN 13 (9-16) mg/dL Creatinine 0.75 (0.5-1.4) mg/dL Estim Creat Clear Calc 79.6 Estimated GFR > 60 Random Glucose 145 H (60-115) mg/dL Calcium 10.0 (8.4-10.2) mg/dL Magnesium 2.2 (1.6-2.6) mg/dL Total Bilirubin 0.4 (0.0-1.0) mg/dL Direct Bilirubin < 0.2 (0.0-0.5) mg/dL AST 67 H (5-31) U/L ALT 83 H (0-31) U/L Alkaline Phosphatase 206 H (39-117) U/L Total Protein 7.7 (6.5-8.0) g/dL Albumin 4.4 (3.5-5.0) g/dL <Norberto Glover MD - Last Filed: 06/02/22 22:56> Discharge Plan Discharge Clinical Impression: Strain of lumbar region, Diabetic peripheral neuropathy <AGNIESZKA Garg - Last Filed: 06/02/22 19:07> Patient Disposition: Home, Self-Care <AGNIESZKA Garg - Last Filed: 06/02/22 19:07> Instructions: Diabetic Peripheral Neuropathy (ED), Low Back Strain (ED) <AGNIESZKA Garg - Last Filed: 06/02/22 19:07> Additional Instructions: Stop taking tamsulosin Pain medication muscle relaxant as prescribed Gabapentin for tingling sensation in your feet Follow-up with PCP <AGNIESZKA Garg - Last Filed: 06/02/22 19:07> Prescriptions: New cyclobenzaprine 10 mg tablet 10 mg PO Q8H Qty: 20 0RF tramadol 50 mg tablet 50 mg PO Q6H PRN (Reason: pain) Qty: 20 0RF gabapentin 300 mg capsule 300 mg PO BEDTIME Qty: 30 0RF No Action doxycycline hyclate 100 mg capsule 100 mg PO BID 10 Days Qty: 20 0RF cephalexin 500 mg tablet 500 mg PO Q6H 10 Days Qty: 40 0RF lidocaine [Lidoderm] 5 % adhesive patch,medicated 1 patch topical DAILY Qty: 15 0RF Rx Instructions: leave on most painful area for up to 12 hrs <AGNIESZKA Garg - Last Filed: 06/02/22 19:07>
[2022-06-02 18:59] VITALS: BP 147/92; PULSE 115; RESP 18; TEMP 36.6; O2SAT 96; BMI 31.1
[2022-06-02 21:25] LABS: MANUAL DIFF FLAG NO
[2022-06-02 21:26] LABS: Basophils Percent Auto 0.4 % (0-2); Eosinophils Absolute Auto 0.2 X10*3/uL (0.0-0.4); Eosinophils Percent Auto 1.9 % (0-4); Imm Gran Abs Auto 0.02 X10*3/uL (0.00-0.03); Imm Gran Pct Auto 0.3 % (0.0-0.4); Lymphocytes Absolute Auto 2.2 X10*3/uL (1.2-4.9); Lymphocytes Percent Auto 28.4 % (20-40); Mean Corpuscular HGB Conc 33.3 g/dl (31.0-35.0); Mean Corpuscular Hemoglobin 28.8 pg (27.0-33.0); Mean Corpuscular Volume 86.4 fL (80.0-98.0); Mean Platelet Volume 10.4 fL (9.4-12.3); Monocytes Absolute Auto 0.4 X10*3/uL (0.1-1.2); Monocytes Percent Auto 5.3 % (2-11); Neutrophils Percent Auto 63.7 % (45-73); Platelet Count 225 X10*3/uL (160-400); Red Blood Count 5.21 X10*6/uL (4.20-5.50); Red Cell Distribution Width 14.2 % (11.0-16.0); White Blood Count 7.8 X10*3/uL (4.8-10.8)
[2022-06-02 21:44] LABS: Alanine Aminotransferase 83 U/L (0-31); Albumin Level 4.4 g/dL (3.5-5.0); Alkaline Phosphatase 206 U/L (39-117); Anion Gap 15 (12-20); Aspartate Amino Transferase 67 U/L (5-31); Bilirubin Direct < 0.2 mg/dL (0.0-0.5); Bilirubin Total 0.4 mg/dL (0.0-1.0); Blood Urea Nitrogen 13 mg/dL (9-16); Carbon Dioxide 26 mmol/L (22-29); Chloride 104 mmol/L (96-108); Creatinine Clr Calc Pharmacy 79.6; Estimated Glomerular Filt Rate > 60; Glucose Random 145 mg/dL (60-115); Magnesium 2.2 mg/dL (1.6-2.6); Potassium 4.3 mmol/L (3.3-5.1); Sodium 141 mmol/L (135-145); Total Protein 7.7 g/dL (6.5-8.0)
[2022-06-02 22:36] LABS: Influenza A PCR NEGATIVE (Negative); Influenza B PCR NEGATIVE (Negative); Resp Syncy Virus RNA Qual PCR NEGATIVE (Negative); SARS COV2 PCR INHOUSE NEGATIVE (Negative)
[2022-06-02 23:27] VITALS: BP 139/86; PULSE 89; RESP 18; TEMP 36.6; O2SAT 96
== END 2022-06-02 23:28 | disposition home or self-care (01) ==
PROVIDERS: Physician Assistant; Emergency Provider Internal Medicine
DX: E11.42 Type 2 diabetes mellitus with diabetic polyneuropathy (principal); M54.50 Low back pain, unspecified; M79.7 Fibromyalgia; Z20.822 Contact with and (suspected) exposure to COVID-19; Z79.899 Other long term (current) drug therapy
CPT/HCPCS: 0241U; 36415; 80048; 80076; 83735; 85025; 99283

== ENCOUNTER 2022-06-26 18:11 | Emergency (ER) | payer OTHER, SELFPAY ==
--- NOTE | ~2022-06-26 | CT_ITS ---
EXAMINATION: CT ABDOMEN AND PELVIS WITHOUT CONTRAST CLINICAL INFORMATION: Left flank pain?stone . COMPARISON: No pertinent prior studies are available for comparison. TECHNIQUE: Multidetector volumetric imaging was performed from the superior aspect of the liver through the pubic symphysis without contrast per renal stone protocol. Sagittal and coronal reformatted images were obtained on the technologist workstation. This CT examination was performed using dose optimization techniques as appropriate, variously including the following: *Automated exposure control *Adjustment of mA and/or kV according to patient size (this includes techniques or standardized protocols for targeted exams where dose is matched to indication/reason for exam; i.e. extremities or head) *Use of iterative reconstruction technique DLP: 680 mGy-cm. FINDINGS: LUNG BASES: Calcified granuloma in the right lung base. LIVER, GALLBLADDER, BILIARY TREE: Although this is a noncontrast study, the liver does have a nodular contour. No discrete mass lesion seen. No biliary ductal dilatation. Incidental elongated left lobe of the liver. The gallbladder is contracted but otherwise unremarkable with no evidence of radiopaque gallstones, gallbladder wall thickening, or obvious pericholecystic inflammatory changes. PANCREAS: Unremarkable. SPLEEN: Mildly enlarged at 13.7 cm in length ADRENAL GLANDS: Unremarkable. KIDNEYS AND URETERS: The kidneys are normal in size, shape, and attenuation. 4.2 cm cyst in the heel midpole of the right kidney. No hydronephrosis, hydroureter, or calculi seen. No perinephric stranding. BLADDER: Unremarkable. GASTROINTESTINAL TRACT: Scattered colonic diverticula. No colonic wall thickening or pericolonic inflammatory change. Normal-appearing appendix. Visualized small bowel unremarkable ABDOMINAL WALL: No significant hernia is appreciated. LYMPHOVASCULAR STRUCTURES: No lymphadenopathy. The aorta is unremarkable.. PELVIC VISCERA: Unremarkable. OSSEUS STRUCTURES: Unremarkable. CT/CT abdomen pelvis wo IV con IMPRESSION: No acute intra-abdominal process seen. No renal or ureteric calculi. No obstructive changes to the kidneys. Scattered diverticulosis but no evidence for diverticulitis.
[2022-06-26 18:23] VITALS: BP 157/88; PULSE 101; RESP 18; TEMP 36.7; O2SAT 98; BMI 31.1
--- NOTE | 2022-06-26 18:26 | ED.GENADULT ---
HPI - General Adult General Chief complaint: Back Pain/Injury <AGNIESZKA Santillan - Last Filed: 06/27/22 11:30> Stated complaint: back pain, dizziness, sob <AGNIESZKA Santillan - Last Filed: 06/27/22 11:30> Time Seen by Provider: 06/26/22 19:06 <AGNIESZKA Santillan - Last Filed: 06/27/22 11:30> Source: patient <Norberto Glover MD - Last Filed: 06/26/22 21:27> Mode of arrival: ambulatory <Norberto Glover MD - Last Filed: 06/26/22 21:27> Limitations: no limitations <Norberto Glover MD - Last Filed: 06/26/22 21:27> History of Present Illness HPI narrative: Patient history of asthma in complaining of increased dry cough and wheezing after exposed to cleaning agent 2 days ago does not have inhaler or nebulizer solution at home. Also patient complaining of left flank pain which is chronic going on for a while taking gabapentin without much relief no history of kidney stones patient saturating 98% at room air <Norberto Glover MD - Last Filed: 06/26/22 21:27> Related Data Home medications: Previous Rx's Medication Instructions Recorded cephalexin 500 mg tablet 500 mg PO Q6H 10 days #40 tabs 04/01/22 doxycycline hyclate 100 mg capsule 100 mg PO BID 10 days #20 caps 04/01/22 lidocaine 5 % topical patch 1 patch topical DAILY #15 ea 04/29/22 (Lidoderm) cyclobenzaprine 10 mg tablet 10 mg PO Q8H #20 tabs 06/02/22 gabapentin 300 mg capsule 300 mg PO BEDTIME #30 caps 06/02/22 tramadol 50 mg tablet 50 mg PO Q6H PRN pain #20 tabs 06/02/22 albuterol sulfate 2.5 mg/3 mL 2.5 mg (3 mL) inhalation Q4-6H PRN 06/26/22 (0.083 %) solution for nebulization shortness of breath or wheezing #90 mL albuterol sulfate 90 mcg/actuation 2 puff inhalation Q4-6H PRN 06/26/22 aerosol inhaler (ProAir HFA) shortness of breath or wheezing #8.5 grams gabapentin 300 mg capsule 300 mg PO BID #60 caps 06/26/22 tramadol 50 mg tablet 50 mg PO Q6H PRN pain #20 tabs 06/26/22 <AGNIESZKA Santillan - Last Filed: 06/27/22 11:30> Allergies/adverse reactions: Allergies Allergy/AdvReac Type Severity Reaction Status Date / Time morphine Allergy Vomiting Verified 04/01/22 17:22 Penicillins Allergy Headache Verified 04/01/22 17:22 <AGNIESZKA Santillan - Last Filed: 06/27/22 11:30> Review of Systems Review of Systems: Yes all other systems are reviewed and are negative <Norberto Glover MD - Last Filed: 06/26/22 21:27> [facility] Social History Social History: Social History Advance Directives: No Advance Directives Information Provided: No <AGNIESZKA Santillan - Last Filed: 06/27/22 11:30> Physical Exam ED Vital Signs: Vital Signs - 24 hr 06/26/22 18:23 Temperature 98.0 F Pulse Rate 101 H Respiratory Rate 18 Blood Pressure 157/88 H Pulse Oximetry 98 Oxygen Delivery Method Room Air BMI result Body Mass Index 31.1 <AGNIESZKA Santillan - Last Filed: 06/27/22 11:30> Vital Signs - 24 hr 06/26/22 18:23 Temperature 98.0 F Pulse Rate 101 H Respiratory Rate 18 Blood Pressure 157/88 H Pulse Oximetry 98 Oxygen Delivery Method Room Air BMI result Body Mass Index 31.1 <Norberto Glover MD - Last Filed: 06/26/22 21:27> Appearance: Alert. Oriented X3. No acute distress. ENT: Pharynx normal. Oral Mucosa moist Neck: Normal inspection. Neck supple. CVS: Normal heart rate and rhythm. Pulses normal. Respiratory: No respiratory distress. Equal air entry bilateral, prolonged expiration Abdomen: Soft and nontender. Bowel sounds are present, no mass palpable, left CVA tenderness Skin: Skin warm and dry. Normal skin color. Normal skin turgor. Extremities: No lower extremity edema. No calf tenderness Neuro: Oriented X 3. No motor deficit. <Norberto Glover MD - Last Filed: 06/26/22 21:27> Course Course Course Narrative: RME: 56 yold female presents to the ED for Left sided back pain. patient states back pain is also worse on movement. patient denies any chest pain. patient states no dysuria/hematuria. patient SOB due to lower back pain. patient also states dizziness. Positive for left flank and left lower back hip tenderness on palpation. UA and labs ordered. patient denies any ripping chest pain radiating towards the back. Due to age and stating SOB will lock EKG and troponin. <AGNIESZKA Santillan - Last Filed: 06/27/22 11:30> Medications Administered Discontinued Medications Generic Name Dose Route Start Last Admin Trade Name Freq PRN Reason Stop Dose Admin Albuterol Sulfate 2 puff 06/26/22 19:29 06/26/22 19:42 Albuterol Sulfate 90 Mcg 8 Gm Inhaler INHALE 06/26/22 19:30 2 puff ONCE ONE Administration Tramadol HCl 50 mg 06/26/22 19:29 06/26/22 19:42 Tramadol Hcl 50 Mg Tablet PO 06/26/22 19:30 50 mg ONCE ONE Administration <AGNIESZKA Santillan - Last Filed: 06/27/22 11:30> Medications Administered Discontinued Medications Generic Name Dose Route Start Last Admin Trade Name Freq PRN Reason Stop Dose Admin Albuterol Sulfate 2 puff 06/26/22 19:29 06/26/22 19:42 Albuterol Sulfate 90 Mcg 8 Gm Inhaler INHALE 06/26/22 19:30 2 puff ONCE ONE Administration Tramadol HCl 50 mg 06/26/22 19:29 06/26/22 19:42 Tramadol Hcl 50 Mg Tablet PO 06/26/22 19:30 50 mg ONCE ONE Administration <Norberto Glover MD - Last Filed: 06/26/22 21:27> Medical Decision Making Medical Decision Making [facility] Narrative: CT scan negative for acute pathology patient does have a chronic pain discharge patient home on gabapentin and tramadol <Norberto Glover MD - Last Filed: 06/26/22 21:27> Lab Data [facility] Lab Attestation statement: I reviewed the patient's lab results. <Norberto Glover MD - Last Filed: 06/26/22 21:27> Result Diagrams: 06/26/22 18:32 06/26/22 18:32 <AGNIESZKA Santillan - Last Filed: 06/27/22 11:30> Labs: Lab Results 06/26/22 06/26/22 06/26/22 Range/Units 18:32 18:32 18:32 WBC 7.8 (4.8-10.8) X10*3/uL RBC 4.99 (4.20-5.50) X10*6/uL Hgb 14.8 (12.0-16.0) g/dl Hct 43.3 (37.0-47.0) % MCV 86.8 (80.0-98.0) fL MCH 29.7 (27.0-33.0) pg MCHC 34.2 (31.0-35.0) g/dl RDW 14.1 (11.0-16.0) % Plt Count 224 (160-400) X10*3/uL MPV 10.4 (9.4-12.3) fL Immature Gran % (Auto) 0.3 (0.0-0.4) % Neut % (Auto) 62.3 (45-73) % Lymph % (Auto) 29.4 (20-40) % [place] % (Auto) 5.9 (2-11) % Eos % (Auto) 1.7 (0-4) % Baso % (Auto) 0.4 (0-2) % Lymph # (Auto) 2.3 (1.2-4.9) X10*3/uL [place] # (Auto) 0.5 (0.1-1.2) X10*3/uL Eos # (Auto) 0.1 (0.0-0.4) X10*3/uL Baso # (Auto) 0.0 (0.0-0.2) X10*3/uL Abs Immat Gran (auto) 0.02 (0.00-0.03) X10*3/uL Absolute Neuts (auto) 4.9 (2.0-8.3) x10*3/uL Absolute Nucleated RBC 0.000 (0.0-0.012) X10*3/uL Nucleated RBC % (auto) 0.0 (0.0-0.2) /100WBC PT 12.0 (10.0-13.1) SEC INR 1.0 (0.9-1.1) APTT 31.5 (26.0-36.4) SEC Sodium 138 (135-145) mmol/L Potassium 4.4 (3.3-5.1) mmol/L Chloride 106 (96-108) mmol/L Carbon Dioxide 21 L (22-29) mmol/L Anion Gap 15 (12-20) BUN 15 (9-16) mg/dL Creatinine 0.76 (0.5-1.4) mg/dL Estim Creat Clear Calc 78.5 Estimated GFR > 60 Random Glucose 167 H (60-115) mg/dL Calcium 9.1 D (8.4-10.2) mg/dL Total Bilirubin 0.4 (0.0-1.0) mg/dL AST 49 H (5-31) U/L ALT 67 H (0-31) U/L Alkaline Phosphatase 210 H (39-117) U/L Total Protein 7.5 (6.5-8.0) g/dL Albumin 4.2 (3.5-5.0) g/dL Urine Color Urine Appearance Urine pH (5.0-9.0) Ur Specific [place] (1.005-1.025) Urine Protein (Neg-Trace) mg/dL Urine Glucose (UA) (Negative) mg/dL Urine Ketones (Negative) mg/dL Urine Blood (Negative) Urine Nitrite (Negative) Ur Leukocyte Esterase (Negative) Urine RBC (0-2) /HPF Urine WBC (0-5) /HPF Ur Squamous Epith Cells (0-2) /HPF Urine Bacteria (None Seen) Hyaline Casts (0-2) /LPF 06/26/22 Range/Units 19:33 WBC (4.8-10.8) X10*3/uL RBC (4.20-5.50) X10*6/uL Hgb (12.0-16.0) g/dl Hct (37.0-47.0) % MCV (80.0-98.0) fL MCH (27.0-33.0) pg MCHC (31.0-35.0) g/dl RDW (11.0-16.0) % Plt Count (160-400) X10*3/uL MPV (9.4-12.3) fL Immature Gran % (Auto) (0.0-0.4) % Neut % (Auto) (45-73) % Lymph % (Auto) (20-40) % [place] % (Auto) (2-11) % Eos % (Auto) (0-4) % Baso % (Auto) (0-2) % Lymph # (Auto) (1.2-4.9) X10*3/uL [place] # (Auto) (0.1-1.2) X10*3/uL Eos # (Auto) (0.0-0.4) X10*3/uL Baso # (Auto) (0.0-0.2) X10*3/uL Abs Immat Gran (auto) (0.00-0.03) X10*3/uL Absolute Neuts (auto) (2.0-8.3) x10*3/uL Absolute Nucleated RBC (0.0-0.012) X10*3/uL Nucleated RBC % (auto) (0.0-0.2) /100WBC PT (10.0-13.1) SEC INR (0.9-1.1) APTT (26.0-36.4) SEC Sodium (135-145) mmol/L Potassium (3.3-5.1) mmol/L Chloride (96-108) mmol/L Carbon Dioxide (22-29) mmol/L Anion Gap (12-20) BUN (9-16) mg/dL Creatinine (0.5-1.4) mg/dL Estim Creat Clear Calc Estimated GFR Random Glucose (60-115) mg/dL Calcium (8.4-10.2) mg/dL Total Bilirubin (0.0-1.0) mg/dL AST (5-31) U/L ALT (0-31) U/L Alkaline Phosphatase (39-117) U/L Total Protein (6.5-8.0) g/dL Albumin (3.5-5.0) g/dL Urine Color Yellow Urine Appearance Clear Urine pH 5.5 (5.0-9.0) Ur Specific [place] 1.020 (1.005-1.025) Urine Protein Negative (Neg-Trace) mg/dL Urine Glucose (UA) >=1000 H (Negative) mg/dL Urine Ketones Negative (Negative) mg/dL Urine Blood Negative (Negative) Urine Nitrite Negative (Negative) Ur Leukocyte Esterase Negative (Negative) Urine RBC 0-2 (0-2) /HPF Urine WBC 0-5 (0-5) /HPF Ur Squamous Epith Cells 0-2 (0-2) /HPF Urine Bacteria None Seen (None Seen) Hyaline Casts 0-2 (0-2) /LPF <AGNIESZKA Santillan - Last Filed: 06/27/22 11:30> Lab Results 06/26/22 06/26/22 06/26/22 Range/Units 18:32 18:32 18:32 WBC 7.8 (4.8-10.8) X10*3/uL RBC 4.99 (4.20-5.50) X10*6/uL Hgb 14.8 (12.0-16.0) g/dl Hct 43.3 (37.0-47.0) % MCV 86.8 (80.0-98.0) fL MCH 29.7 (27.0-33.0) pg MCHC 34.2 (31.0-35.0) g/dl RDW 14.1 (11.0-16.0) % Plt Count 224 (160-400) X10*3/uL MPV 10.4 (9.4-12.3) fL Immature Gran % (Auto) 0.3 (0.0-0.4) % Neut % (Auto) 62.3 (45-73) % Lymph % (Auto) 29.4 (20-40) % [place] % (Auto) 5.9 (2-11) % Eos % (Auto) 1.7 (0-4) % Baso % (Auto) 0.4 (0-2) % Lymph # (Auto) 2.3 (1.2-4.9) X10*3/uL [place] # (Auto) 0.5 (0.1-1.2) X10*3/uL Eos # (Auto) 0.1 (0.0-0.4) X10*3/uL Baso # (Auto) 0.0 (0.0-0.2) X10*3/uL Abs Immat Gran (auto) 0.02 (0.00-0.03) X10*3/uL Absolute Neuts (auto) 4.9 (2.0-8.3) x10*3/uL Absolute Nucleated RBC 0.000 (0.0-0.012) X10*3/uL Nucleated RBC % (auto) 0.0 (0.0-0.2) /100WBC PT 12.0 (10.0-13.1) SEC INR 1.0 (0.9-1.1) APTT 31.5 (26.0-36.4) SEC Sodium 138 (135-145) mmol/L Potassium 4.4 (3.3-5.1) mmol/L Chloride 106 (96-108) mmol/L Carbon Dioxide 21 L (22-29) mmol/L Anion Gap 15 (12-20) BUN 15 (9-16) mg/dL Creatinine 0.76 (0.5-1.4) mg/dL Estim Creat Clear Calc 78.5 Estimated GFR > 60 Random Glucose 167 H (60-115) mg/dL Calcium 9.1 D (8.4-10.2) mg/dL Total Bilirubin 0.4 (0.0-1.0) mg/dL AST 49 H (5-31) U/L ALT 67 H (0-31) U/L Alkaline Phosphatase 210 H (39-117) U/L Total Protein 7.5 (6.5-8.0) g/dL Albumin 4.2 (3.5-5.0) g/dL Urine Color Urine Appearance Urine pH (5.0-9.0) Ur Specific [place] (1.005-1.025) Urine Protein (Neg-Trace) mg/dL Urine Glucose (UA) (Negative) mg/dL Urine Ketones (Negative) mg/dL Urine Blood (Negative) Urine Nitrite (Negative) Ur Leukocyte Esterase (Negative) Urine RBC (0-2) /HPF Urine WBC (0-5) /HPF Ur Squamous Epith Cells (0-2) /HPF Urine Bacteria (None Seen) Hyaline Casts (0-2) /LPF 06/26/22 Range/Units 19:33 WBC (4.8-10.8) X10*3/uL RBC (4.20-5.50) X10*6/uL Hgb (12.0-16.0) g/dl Hct (37.0-47.0) % MCV (80.0-98.0) fL MCH (27.0-33.0) pg MCHC (31.0-35.0) g/dl RDW (11.0-16.0) % Plt Count (160-400) X10*3/uL MPV (9.4-12.3) fL Immature Gran % (Auto) (0.0-0.4) % Neut % (Auto) (45-73) % Lymph % (Auto) (20-40) % [place] % (Auto) (2-11) % Eos % (Auto) (0-4) % Baso % (Auto) (0-2) % Lymph # (Auto) (1.2-4.9) X10*3/uL [place] # (Auto) (0.1-1.2) X10*3/uL Eos # (Auto) (0.0-0.4) X10*3/uL Baso # (Auto) (0.0-0.2) X10*3/uL Abs Immat Gran (auto) (0.00-0.03) X10*3/uL Absolute Neuts (auto) (2.0-8.3) x10*3/uL Absolute Nucleated RBC (0.0-0.012) X10*3/uL Nucleated RBC % (auto) (0.0-0.2) /100WBC PT (10.0-13.1) SEC INR (0.9-1.1) APTT (26.0-36.4) SEC Sodium (135-145) mmol/L Potassium (3.3-5.1) mmol/L Chloride (96-108) mmol/L Carbon Dioxide (22-29) mmol/L Anion Gap (12-20) BUN (9-16) mg/dL Creatinine (0.5-1.4) mg/dL Estim Creat Clear Calc Estimated GFR Random Glucose (60-115) mg/dL Calcium (8.4-10.2) mg/dL Total Bilirubin (0.0-1.0) mg/dL AST (5-31) U/L ALT (0-31) U/L Alkaline Phosphatase (39-117) U/L Total Protein (6.5-8.0) g/dL Albumin (3.5-5.0) g/dL Urine Color Yellow Urine Appearance Clear Urine pH 5.5 (5.0-9.0) Ur Specific [place] 1.020 (1.005-1.025) Urine Protein Negative (Neg-Trace) mg/dL Urine Glucose (UA) >=1000 H (Negative) mg/dL Urine Ketones Negative (Negative) mg/dL Urine Blood Negative (Negative) Urine Nitrite Negative (Negative) Ur Leukocyte Esterase Negative (Negative) Urine RBC 0-2 (0-2) /HPF Urine WBC 0-5 (0-5) /HPF Ur Squamous Epith Cells 0-2 (0-2) /HPF Urine Bacteria None Seen (None Seen) Hyaline Casts 0-2 (0-2) /LPF <Norberto Glover MD - Last Filed: 06/26/22 21:27> Discharge Plan Discharge Clinical Impression: Strain of lumbar region, Acute asthmatic bronchitis <AGNIESZKA Santillan - Last Filed: 06/27/22 11:30> Patient Disposition: Home, Self-Care <AGNIESZKA Santillan - Last Filed: 06/27/22 11:30> Instructions: Asthma (ED), Back Pain (ED) <AGNIESZKA Santillan - Last Filed: 06/27/22 11:30> Additional Instructions: Drink plenty of fluids Use albuterol inhaler/nebulizer at 4-6 hours Pain medication as advised <AGNIESZKA Santillan - Last Filed: 06/27/22 11:30> Prescriptions: New tramadol 50 mg tablet 50 mg PO Q6H PRN (Reason: pain) Qty: 20 0RF gabapentin 300 mg capsule 300 mg PO BID Qty: 60 2RF albuterol sulfate [ProAir HFA] 90 mcg/actuation HFA aerosol inhaler 2 puff inhalation Q4-6H PRN (Reason: shortness of breath or wheezing) Qty: 8.5 0RF albuterol sulfate 2.5 mg /3 mL (0.083 %) solution for nebulization 2.5 mg inhalation Q4-6H PRN (Reason: shortness of breath or wheezing) Qty: 90 0RF No Action cyclobenzaprine 10 mg tablet 10 mg PO Q8H Qty: 20 0RF tramadol 50 mg tablet 50 mg PO Q6H PRN (Reason: pain) Qty: 20 0RF gabapentin 300 mg capsule 300 mg PO BEDTIME Qty: 30 0RF doxycycline hyclate 100 mg capsule 100 mg PO BID 10 Days Qty: 20 0RF cephalexin 500 mg tablet 500 mg PO Q6H 10 Days Qty: 40 0RF lidocaine [Lidoderm] 5 % adhesive patch,medicated 1 patch topical DAILY Qty: 15 0RF Rx Instructions: leave on most painful area for up to 12 hrs <AGNIESZKA Santillan - Last Filed: 06/27/22 11:30> Interventions: ED Discharge Assessment Last Done: 06/26/22 21:17 <AGNIESZKA Santillan - Last Filed: 06/27/22 11:30> Discharge Date/Time: 06/26/22 21:17 <AGNIESZKA Santillan - Last Filed: 06/27/22 11:30>
--- NOTE | 2022-06-26 18:30 | ECG_ITS ---
Test Reason : BACK PAIN Blood Pressure : / mmHG Vent. Rate : 087 BPM Atrial Rate : 087 BPM P-R Int : 148 ms QRS Dur : 074 ms QT Int : 342 ms P-R-T Axes : 029 -35 -08 degrees QTc Int : 411 ms Normal sinus rhythm Left axis deviation Low voltage QRS Abnormal ECG No previous ECGs available Referred By: Yifan Aly Electronically Signed By:ASHLEY GOLDSTEIN MD
[2022-06-26 18:39] LABS: MANUAL DIFF FLAG NO
[2022-06-26 18:40] LABS: Basophils Percent Auto 0.4 % (0-2); Eosinophils Absolute Auto 0.1 X10*3/uL (0.0-0.4); Eosinophils Percent Auto 1.7 % (0-4); Hematocrit 43.3 % (37.0-47.0); Hemoglobin 14.8 g/dl (12.0-16.0); Imm Gran Abs Auto 0.02 X10*3/uL (0.00-0.03); Imm Gran Pct Auto 0.3 % (0.0-0.4); Lymphocytes Absolute Auto 2.3 X10*3/uL (1.2-4.9); Lymphocytes Percent Auto 29.4 % (20-40); Mean Corpuscular HGB Conc 34.2 g/dl (31.0-35.0); Mean Corpuscular Hemoglobin 29.7 pg (27.0-33.0); Mean Corpuscular Volume 86.8 fL (80.0-98.0); Mean Platelet Volume 10.4 fL (9.4-12.3); Monocytes Absolute Auto 0.5 X10*3/uL (0.1-1.2); Monocytes Percent Auto 5.9 % (2-11); Neutrophils Absolute Auto 4.9 x10*3/uL (2.0-8.3); Neutrophils Percent Auto 62.3 % (45-73); Platelet Count 224 X10*3/uL (160-400); Red Blood Count 4.99 X10*6/uL (4.20-5.50); Red Cell Distribution Width 14.1 % (11.0-16.0); White Blood Count 7.8 X10*3/uL (4.8-10.8)
[2022-06-26 18:50] LABS: Partial Thromboplastin Time 31.5 SEC (26.0-36.4)
[2022-06-26 18:57] LABS: Alanine Aminotransferase 67 U/L (0-31); Albumin Level 4.2 g/dL (3.5-5.0); Alkaline Phosphatase 210 U/L (39-117); Anion Gap 15 (12-20); Aspartate Amino Transferase 49 U/L (5-31); Bilirubin Total 0.4 mg/dL (0.0-1.0); Blood Urea Nitrogen 15 mg/dL (9-16); Calcium 9.1 mg/dL (8.4-10.2); Carbon Dioxide 21 mmol/L (22-29); Chloride 106 mmol/L (96-108); Creatinine Clr Calc Pharmacy 78.5; Estimated Glomerular Filt Rate > 60; Glucose Random 167 mg/dL (60-115); Potassium 4.4 mmol/L (3.3-5.1); Sodium 138 mmol/L (135-145); Total Protein 7.5 g/dL (6.5-8.0)
[2022-06-26] MEDS: traMADoL HCL 50 MG TABLET PO (19:42)
[2022-06-26] MEDS: Albuterol Sulfate 90 MCG 8 GM INHALER 2 PUFF INHALE (19:42)
[2022-06-26 19:44] LABS: Appearance Urine Clear; Color Urine Yellow; Glucose Urine UA >=1000 mg/dL (Negative); Leukocyte Esterase Urine Negative (Negative); Nitrite Urine Negative (Negative); PH 5.5 (5.0-9.0); UMIC TRIGGER UACC YES; Urine Blood Negative (Negative); Urine Ketones Negative (Negative); Urine Protein Negative (Neg-Trace)
[2022-06-26 19:49] LABS: Bacteria Urine None Seen (None Seen); Hyaline Casts Urine 0-2 /LPF (0-2); RBC Urine 0-2 /HPF (0-2); Squamous Epithelial Cell Urine 0-2 /HPF (0-2); WBC Urine 0-5 /HPF (0-5)
== END 2022-06-26 21:17 | disposition home or self-care (01) ==
PROVIDERS: Physician Assistant; Emergency Provider Internal Medicine
DX: J45.909 Unspecified asthma, uncomplicated (principal); S39.012A Strain of muscle, fascia and tendon of lower back, initial encounter; X58.XXXA Exposure to other specified factors, initial encounter; Y93.9 Activity, unspecified; Y92.9 Unspecified place or not applicable; Y99.9 Unspecified external cause status
CPT/HCPCS: 36415; 74176; 80053; 81001; 85025; 85610; 85730; 93005; 99284

== ENCOUNTER 2022-07-22 21:51 | Emergency (ER) | payer OTHER, SELFPAY ==
[2022-07-22 21:59] VITALS: BP 160/94; PULSE 112; RESP 16; TEMP 36.7; O2SAT 99; BMI 30.5
[2022-07-22 22:26] LABS: MANUAL DIFF FLAG NO
[2022-07-22 22:39] LABS: Basophils Percent Auto 0.3 % (0-2); Eosinophils Absolute Auto 0.1 X10*3/uL (0.0-0.4); Eosinophils Percent Auto 1.1 % (0-4); Hematocrit 46.4 % (37.0-47.0); Hemoglobin 15.6 g/dl (12.0-16.0); Imm Gran Abs Auto 0.01 X10*3/uL (0.00-0.03); Imm Gran Pct Auto 0.1 % (0.0-0.4); Lymphocytes Absolute Auto 2.2 X10*3/uL (1.2-4.9); Lymphocytes Percent Auto 24.5 % (20-40); Mean Corpuscular HGB Conc 33.6 g/dl (31.0-35.0); Mean Corpuscular Hemoglobin 30.1 pg (27.0-33.0); Mean Corpuscular Volume 89.4 fL (80.0-98.0); Mean Platelet Volume 10.8 fL (9.4-12.3); Monocytes Absolute Auto 0.4 X10*3/uL (0.1-1.2); Monocytes Percent Auto 4.5 % (2-11); Neutrophils Absolute Auto 6.4 x10*3/uL (2.0-8.3); Neutrophils Percent Auto 69.5 % (45-73); Platelet Count 216 X10*3/uL (160-400); Red Blood Count 5.19 X10*6/uL (4.20-5.50); Red Cell Distribution Width 13.7 % (11.0-16.0); White Blood Count 9.2 X10*3/uL (4.8-10.8)
[2022-07-22 23:08] LABS: Appearance Urine Clear; Color Urine Yellow; Glucose Urine UA >=1000 mg/dL (Negative); Leukocyte Esterase Urine Negative (Negative); Nitrite Urine Negative (Negative); PH 5.5 (5.0-9.0); Specific Gravity - Urine >= 1.030 (1.005-1.025); UMIC TRIGGER UACC YES; Urine Blood Negative (Negative); Urine Ketones Negative (Negative); Urine Protein Negative (Neg-Trace)
[2022-07-22] MEDS: HYDROmorphone HCl 2 MG TABLET PO (23:19)
[2022-07-22 23:20] VITALS: BP 129/73; PULSE 81; RESP 16; TEMP 36.7; O2SAT 98
--- NOTE | 2022-07-22 23:24 | PC.NURSE ---
pt medicated according to mar reports 01/18 pain
[2022-07-22 23:31] LABS: Bacteria Urine None Seen (None Seen); Hyaline Casts Urine 0-2 /LPF (0-2); RBC Urine 0-2 /HPF (0-2); WBC Urine 0-5 /HPF (0-5)
--- NOTE | 2022-07-23 00:04 | ED_ITS ---
HPI - General Adult General Chief complaint: General Medical Stated complaint: Left flank pain Time Seen by Provider: 07/22/22 22:40 Source: patient Mode of arrival: ambulatory Limitations: no limitations History of Present Illness HPI narrative: Patient has splenomegaly of unknown etiology was seen here on 06/[address] scan done which was showing splenomegaly without any kidney stone comes here as she had ongoing pain in the left flank area patient had a CT scan with IV contrast done 4 days ago and seen her PCP today who planned for her to see fishing captain as outpatient patient comes here as she is unable to sleep because of pain taking tramadol and gabapentin without much relief, no vomiting no fever no rash Related Data Previous Rx's Medication Instructions Recorded cephalexin 500 mg tablet 500 mg PO Q6H 10 days #40 tabs 04/01/22 doxycycline hyclate 100 mg capsule 100 mg PO BID 10 days #20 caps 04/01/22 lidocaine 5 % topical patch 1 patch topical DAILY #15 ea 04/29/22 (Lidoderm) cyclobenzaprine 10 mg tablet 10 mg PO Q8H #20 tabs 06/02/22 gabapentin 300 mg capsule 300 mg PO BEDTIME #30 caps 06/02/22 tramadol 50 mg tablet 50 mg PO Q6H PRN pain #20 tabs 06/02/22 albuterol sulfate 2.5 mg/3 mL 2.5 mg (3 mL) inhalation Q4-6H PRN 06/26/22 (0.083 %) solution for nebulization shortness of breath or wheezing #90 mL albuterol sulfate 90 mcg/actuation 2 puff inhalation Q4-6H PRN 06/26/22 aerosol inhaler (ProAir HFA) shortness of breath or wheezing #8.5 grams gabapentin 300 mg capsule 300 mg PO BID #60 caps 06/26/22 tramadol 50 mg tablet 50 mg PO Q6H PRN pain #20 tabs 06/26/22 hydromorphone 2 mg tablet 2 mg PO Q8H PRN pain #14 tabs 07/23/22 (Dilaudid) Allergies Allergy/AdvReac Type Severity Reaction Status Date / Time morphine Allergy Vomiting Verified 04/01/22 17:22 Penicillins Allergy Headache Verified 04/01/22 17:22 Review of Systems Review of Systems: Yes all other systems are reviewed and are negative [facility] Social History Social History Smoked in Last 30 Days: No Use of substances other than those prescribed or required for medical reasons: No Advance Directives: No Advance Directives Information Provided: No Patient : No Physical Exam ED Vital Signs: Vital Signs - 24 hr 07/22/22 21:59 07/22/22 23:20 Temperature 98.1 F 98.1 F Pulse Rate 112 H 81 Respiratory Rate 16 16 Blood Pressure 160/94 H 129/73 Pulse Oximetry 99 98 Oxygen Delivery Method Room Air Room Air BMI result Body Mass Index 30.5 Appearance: Alert. Oriented X3. No acute distress. Eyes: PERRLA, No Nystagmus ENT: Pharynx normal. Oral Mucosa moist Neck: Normal inspection. Neck supple. CVS: Normal heart rate and rhythm. Pulses normal. Respiratory: No respiratory distress. Equal air entry bilateral, no wheezing/rales/rhonchi Abdomen: Soft and nontender. Bowel sounds are present, splenomegaly tender in the left upper quadrant area no rash seen Skin: Skin warm and dry. Normal skin color. Normal skin turgor. Extremities: No lower extremity edema. No calf tenderness Neuro: Oriented X 3. No motor deficit. Medications Administered Discontinued Medications Generic Name Dose Route Start Last Admin Trade Name Freq PRN Reason Stop Dose Admin Hydromorphone HCl 2 mg 07/22/22 23:05 07/22/22 23:19 Hydromorphone Hcl 2 Mg Tablet PO 07/22/22 23:06 2 mg ONCE ONE Administration Medical Decision Making Medical Decision Making [facility] Narrative: Patient with splenomegaly with left upper quadrant pain had recent CT scan with IV contrast which just showed splenomegaly per patient unlikely to be splenic infarct as patient already been seen by her PCP today who went through the CT scan results, report is unavailable for me to recheck, will give patient Dilaudid Lab Data [facility] Lab Attestation statement: I reviewed the patient's lab results. 07/22/22 22:20 07/22/22 22:20 Labs: Lab Results 07/22/22 07/22/22 07/22/22 Range/Units 22:20 22:20 23:02 WBC 9.2 (4.8-10.8) X10*3/uL RBC 5.19 (4.20-5.50) X10*6/uL Hgb 15.6 (12.0-16.0) g/dl Hct 46.4 (37.0-47.0) % MCV 89.4 (80.0-98.0) fL MCH 30.1 (27.0-33.0) pg MCHC 33.6 (31.0-35.0) g/dl RDW 13.7 (11.0-16.0) % Plt Count 216 (160-400) X10*3/uL MPV 10.8 (9.4-12.3) fL Immature Gran % (Auto) 0.1 (0.0-0.4) % Neut % (Auto) 69.5 (45-73) % Lymph % (Auto) 24.5 (20-40) % [place] % (Auto) 4.5 (2-11) % Eos % (Auto) 1.1 (0-4) % Baso % (Auto) 0.3 (0-2) % Lymph # (Auto) 2.2 (1.2-4.9) X10*3/uL [place] # (Auto) 0.4 (0.1-1.2) X10*3/uL Eos # (Auto) 0.1 (0.0-0.4) X10*3/uL Baso # (Auto) 0.0 (0.0-0.2) X10*3/uL Abs Immat Gran (auto) 0.01 (0.00-0.03) X10*3/uL Absolute Neuts (auto) 6.4 (2.0-8.3) x10*3/uL Absolute Nucleated RBC 0.000 (0.0-0.012) X10*3/uL Nucleated RBC % (auto) 0.0 (0.0-0.2) /100WBC Sodium 138 (135-145) mmol/L Potassium 4.4 (3.3-5.1) mmol/L Chloride 105 (96-108) mmol/L Carbon Dioxide 20 L (22-29) mmol/L Anion Gap 17 (12-20) BUN 15 (9-16) mg/dL Creatinine 0.81 (0.5-1.4) mg/dL Estim Creat Clear Calc 73.0 Estimated GFR > 60 Fasting Glucose 291 H (60-99) mg/dL Calcium 9.6 (8.4-10.2) mg/dL Total Bilirubin 0.6 (0.0-1.0) mg/dL AST 42 H (5-31) U/L ALT 62 H (0-31) U/L Alkaline Phosphatase 224 H (39-117) U/L Total Protein 7.7 (6.5-8.0) g/dL Albumin 4.5 (3.5-5.0) g/dL Urine Color Yellow Urine Appearance Clear Urine pH 5.5 (5.0-9.0) Ur Specific [place] >= 1.030 H (1.005-1.025) Urine Protein Negative (Neg-Trace) mg/dL Urine Glucose (UA) >=1000 H (Negative) mg/dL Urine Ketones Negative (Negative) mg/dL Urine Blood Negative (Negative) Urine Nitrite Negative (Negative) Ur Leukocyte Esterase Negative (Negative) Urine RBC 0-2 (0-2) /HPF Urine WBC 0-5 (0-5) /HPF Ur Squamous Epith Cells 3-5 (0-2) /HPF Urine Bacteria None Seen (None Seen) Hyaline Casts 0-2 (0-2) /LPF Discharge Plan Discharge Clinical Impression: Splenomegaly Patient Disposition: Home, Self-Care Instructions: Abdominal Pain (ED) Additional Instructions: Take pain medication as prescribed and 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 No Action cyclobenzaprine 10 mg tablet 10 mg PO Q8H Qty: 20 0RF tramadol 50 mg tablet 50 mg PO Q6H PRN (Reason: pain) Qty: 20 0RF gabapentin 300 mg capsule 300 mg PO BEDTIME Qty: 30 0RF tramadol 50 mg tablet 50 mg PO Q6H PRN (Reason: pain) Qty: 20 0RF gabapentin 300 mg capsule 300 mg PO BID Qty: 60 2RF albuterol sulfate [ProAir HFA] 90 mcg/actuation HFA aerosol inhaler 2 puff inhalation Q4-6H PRN (Reason: shortness of breath or wheezing) Qty: 8.5 0RF albuterol sulfate 2.5 mg /3 mL (0.083 %) solution for nebulization 2.5 mg inhalation Q4-6H PRN (Reason: shortness of breath or wheezing) Qty: 90 0RF doxycycline hyclate 100 mg capsule 100 mg PO BID 10 Days Qty: 20 0RF cephalexin 500 mg tablet 500 mg PO Q6H 10 Days Qty: 40 0RF lidocaine [Lidoderm] 5 % adhesive patch,medicated 1 patch topical DAILY Qty: 15 0RF Rx Instructions: leave on most painful area for up to 12 hrs Interventions: ED Discharge Assessment Last Done: 07/23/22 00:13 Discharge Date/Time: 07/23/22 00:14
--- NOTE | 2022-07-23 00:09 | PC.NURSE ---
family member at bedside at this time. pt tolerated po intake well.
--- NOTE | 2022-07-23 00:13 | PC.NURSE ---
pt reporting 4/10 pain at this time. pt family at bedside. skin pwd. pt ambulatory at discharge. pt provided with discharge packet. pt verbalized understanding of discharge plan
[2022-07-23 01:13] LABS: Alanine Aminotransferase 62 U/L (0-31); Albumin Level 4.5 g/dL (3.5-5.0); Alkaline Phosphatase 224 U/L (39-117); Anion Gap 17 (12-20); Aspartate Amino Transferase 42 U/L (5-31); Bilirubin Total 0.6 mg/dL (0.0-1.0); Blood Urea Nitrogen 15 mg/dL (9-16); Calcium 9.6 mg/dL (8.4-10.2); Carbon Dioxide 20 mmol/L (22-29); Chloride 105 mmol/L (96-108); Estimated Glomerular Filt Rate > 60; Glucose Fasting 291 mg/dL (60-99); Potassium 4.4 mmol/L (3.3-5.1); Sodium 138 mmol/L (135-145); Total Protein 7.7 g/dL (6.5-8.0)
== END 2022-07-23 00:14 | disposition home or self-care (01) ==
PROVIDERS: Emergency Provider Internal Medicine
DX: R16.1 Splenomegaly, not elsewhere classified (principal); R10.12 Left upper quadrant pain
CPT/HCPCS: 36415; 80053; 81001; 85025; 99283; 99284

== ENCOUNTER 2022-12-08 14:46 | Emergency (ER) | payer OTHER, SELFPAY ==
--- NOTE | ~2022-12-08 | CT_ITS ---
EXAMINATION: CT HEAD WITHOUT CONTRAST CLINICAL INFORMATION: Dizziness and headache COMPARISON: None available. TECHNIQUE: Contiguous axial imaging was performed from the skull base to vertex without intravenous administration of contrast. This CT examination was performed using dose optimization techniques as appropriate, variously including the following: *Automated exposure control *Adjustment of mA and/or kV according to patient size (this includes techniques or standardized protocols for targeted exams where dose is matched to indication/reason for exam; i.e. extremities or head) *Use of iterative reconstruction technique DLP: 676 mGy-cm FINDINGS: Intracranial structures are normal appearing. Farrar-white matter differentiation is preserved. No evolving infarct, mass lesion, mass effect, midline shift, hemorrhage or extra-axial fluid collections are identified. Anterior falcine calcifications are seen. Intraorbital structures are unremarkable. Small left-sided nasal spur. Edna bullosa, right larger than left. Sinuses and mastoids are free of disease. Bony structures are intact. Soft tissues are unremarkable. CT/CT head/brain wo IV con IMPRESSION: No acute intracranial pathology.
--- NOTE | ~2022-12-08 | XR_ITS ---
EXAMINATION: XR CHEST CLINICAL INFORMATION: Shortness of breath COMPARISON: None TECHNIQUE: Frontal view of the chest was obtained. FINDINGS: Heart size within normal limits. Right paratracheal prominence. No vascular congestion, consolidations or effusions. XR/XR chest 1V IMPRESSION: No acute cardiopulmonary disease. Right paratracheal prominence. Consider follow-up chest CT.
--- NOTE | ~2022-12-08 | MR_ITS ---
EXAMINATION: MR BRAIN WITHOUT CONTRAST CLINICAL INFORMATION: Persistent dizziness. COMPARISON: None available. TECHNIQUE: Multiplanar, multisequence imaging of the brain was performed without contrast. FINDINGS: No diffusion abnormalities are identified to suggest an acute infarct. No mass effect or midline shift is seen. Nonspecific mild bifrontal white matter signal changes are visible. Mild generalized parenchymal volume loss is evident with concordant mild ex vacuo prominence of the ventricles. No extra-axial fluid collections are seen. The brainstem and cerebellum are normal. The gradient refocused acquisition is normal. The craniovertebral junction, marrow signal, and midline structures are normal. The major intracranial flow voids at the level of the y[place] de[place] of [place] are preserved. The dural venous sinus flow voids are maintained. The mastoid air cells are well aerated. Mild ethmoid sinus mucosal thickening noted. There is incompletely visualized right-sided cervical adenopathy with a prominent right-sided intraparotid lymph node measuring up to 1.6 cm in long axis dimension in the axial plane. MR/MR head/brain wo con IMPRESSION: No acute intracranial process. Mild scattered white matter signal changes which may be due to chronic microangiopathy. Partially visualized right-sided cervical adenopathy and enlarged right-sided intraparotid lymph node measuring 1.6 cm in diameter. Findings could be due to an infectious, inflammatory or neoplastic etiology. The patient had a prior abdominal CT on 07/18/2022 which demonstrated mild splenomegaly and some conspicuous celiac axis lymph nodes. A lymphoproliferative disorder such as lymphoma cannot be ruled out. A dedicated CT scan of the neck with contrast is recommended for further evaluation. Imaging findings reported to Dr. Frey at 8:27 PM on 12/08/2022.
--- NOTE | 2022-12-08 14:51 | ED_ITS ---
HPI - General Adult General Chief complaint: General Medical Stated complaint: ear infection, dizziness Time Seen by Provider: 12/08/22 16:13 Source: patient and family (Sister) Mode of arrival: ambulatory History of Present Illness HPI narrative: This is a 57-year-old female with history of asthma and presents with dizziness/vertigo for approximately 1 week that she describes was sudden in onset. Since that time she states she has had significant headaches and was seen at urgent care and provided with meclizine which really has not worked, the headaches in the dizziness have persisted she also reports some subjective fevers and in addition reports some feelings of shortness of breath and stating that she feels like she has something at the superior portion of her chest and also reports some related nausea, vomiting, diarrhea but denies any urinary symptoms. Related Data Previous Rx's Medication Instructions Recorded cephalexin 500 mg tablet 500 mg PO Q6H 10 days #40 tabs 04/01/22 doxycycline hyclate 100 mg capsule 100 mg PO BID 10 days #20 caps 04/01/22 lidocaine 5 % topical patch 1 patch topical DAILY #15 ea 04/29/22 (Lidoderm) cyclobenzaprine 10 mg tablet 10 mg PO Q8H #20 tabs 06/02/22 gabapentin 300 mg capsule 300 mg PO BEDTIME #30 caps 06/02/22 tramadol 50 mg tablet 50 mg PO Q6H PRN pain #20 tabs 06/02/22 albuterol sulfate 2.5 mg/3 mL 2.5 mg (3 mL) inhalation Q4-6H PRN 06/26/22 (0.083 %) solution for nebulization shortness of breath or wheezing #90 mL albuterol sulfate 90 mcg/actuation 2 puff inhalation Q4-6H PRN 06/26/22 aerosol inhaler (ProAir HFA) shortness of breath or wheezing #8.5 grams gabapentin 300 mg capsule 300 mg PO BID #60 caps 06/26/22 tramadol 50 mg tablet 50 mg PO Q6H PRN pain #20 tabs 06/26/22 hydromorphone 2 mg tablet 2 mg PO Q8H PRN pain #14 tabs 07/23/22 (Dilaudid) Allergies Allergy/AdvReac Type Severity Reaction Status Date / Time morphine Allergy Vomiting Verified 04/01/22 17:22 Penicillins Allergy Headache Verified 04/01/22 17:22 Review of Systems Review of Systems: Pertinent positives and negatives as stated in [facility] Past Medical History Source: nursing notes reviewed Social History Social History Alcohol intake: never Smoked in Last 30 Days: No Use of substances other than those prescribed or required for medical reasons: No Advance Directives: No Advance Directives Information Provided: No Physical Exam ED Vital Signs: Vital Signs - 24 hr 12/08/22 14:52 12/08/22 16:03 12/08/22 16:03 Temperature 98.2 F Pulse Rate 112 H 104 H 107 H Respiratory Rate 22 H Blood Pressure 146/71 H 124/69 120/64 Pulse Oximetry 97 Oxygen Delivery Method Room Air 12/08/22 16:05 12/08/22 18:11 12/08/22 20:17 Temperature 102.2 F H 99.3 F Pulse Rate 111 H 104 H 92 Respiratory Rate 18 16 Blood Pressure 113/64 113/58 L 105/55 L Pulse Oximetry 97 94 Oxygen Delivery Method Room Air Room Air 12/08/22 23:28 Temperature 99.1 F Pulse Rate 87 Respiratory Rate 16 Blood Pressure 124/59 L Pulse Oximetry 96 Oxygen Delivery Method Room Air BMI result Body Mass Index 32.9 VITAL SIGNS: Reviewed. GENERAL: Well developed, well nourished, in no acute distress. HEAD: Normocephalic/atraumatic EYES: PERRLA, EOMI EARS: Ext canals without abnormality, TMs non-bulging and non-erythematous NOSE: Nares patent bilateral OROPHARYNX: no oral lesions noted, posterior pharynx clear and non-erythematous without noted tonsillar enlargement/erythema/exudates NECK: Supple,+ adenopathy LUNGS: Normal breath sounds, no wheeze/rhonchi/rales, tachypnea is present. No adventitious sounds or accessory muscle use. SpO2<97> CARDIOVASCULAR: Regular rate and rhythm without noted murmurs, no JVD or lower extremity edema. ABDOMEN: Soft, non-tender, non-distended with bowel sounds. MUSCULOSKELETAL: No tenderness, deformities, or effusions noted on gross inspection. EXTREMITIES: No cyanosis, clubbing or edema. SKIN: Inspection of the skin reveals no rashes NEUROLOGIC: Alert and oriented x 4. Strength and sensation to light touch were grossly intact x 4. Course Course Course Narrative: This is an RME: Additional HPI, ROS, PE not included below will be deferred to primary provider. 57 year old female presents w/ dizizness as room spinning seen at urgent care rx meclizine taking w/ little to no relief. Also complains of headache severe diffuse, reports a/c blurred vision. Tells me she feels terrible. Also feels congestion in her chest causing difficulty breathing it feels like phlem is stuck . Plan- xray, ct head, orthostatics, chest xray, labs Medications Administered Discontinued Medications Generic Name Dose Route Start Last Admin Trade Name Freq PRN Reason Stop Dose Admin Acetaminophen 975 mg 12/08/22 18:20 12/08/22 18:37 Acetaminophen 325 Mg Tablet PO 12/08/22 18:21 975 mg ONCE ONE Administration Diazepam 2 mg 12/08/22 14:53 12/08/22 17:05 Diazepam 2 Mg Tablet PO 12/08/22 14:54 2 mg ONCE ONE Administration Sodium Chloride 1,000 mls @ 999 mls/hr 12/08/22 15:00 12/08/22 18:37 Ns IV 12/08/22 16:00 Infused .Q1H1M GUME Infusion Ceftriaxone Sodium 1 gm/ 50 mls @ 100 mls/hr 12/08/22 18:22 12/08/22 19:50 Sodium Chloride IV 12/08/22 18:51 Infused ONCE ONE Infusion Sodium Chloride 1,000 mls @ 999 mls/hr 12/08/22 18:30 12/08/22 19:50 Ns IV 12/08/22 19:30 Infused .Q1H1M GUME Infusion Medical Decision Making Medical Decision Making [facility] [place] Narrative: 1700: 57-year-old female with history and clinical presentation DDX: Viral infection, ear infection, mastoiditis, sinusitis, subacute stroke. 174: I reviewed all investigations, noncontrast CT of the head is negative for any acute findings, on clinical exam there were no findings to suggest AOM/mastoiditis, hematologic values are significantly altered when compared to July of this year with noted pancytopenia and taken into context with chest x-ray which demonstrates a paratracheal prominence this raises concerns to me for possible lung mass and will proceed with CT of the chest. On review of chemistries there chronically stable, especially with regard to the liver enzymes, orthostatics did demonstrated a trend towards being positive. Will obtain lactic acid and blood cultures and also proceed with MRI given the fact that patient's symptoms and lack of resolution of the persistent dizziness that she states has remained constant since last week. I did review the triage notes which identified a steady gait and there are no focal findings. 1822: Nursing just reported to me that patient is febrile, Tylenol as been ordered, lactic acid and blood cultures have been sent and will order antibiotics at this time. Lyme, ESR, and CRP have been ordered for alternative etiologies of multi-system symptoms. EKG does not demonstrate and IN abnormalities to suggest conduction issues. 5: [place] radiology called to say that no acute ischemic issues, so no posterior stroke responsible for dizziness. adnopathy noted on the MRI. 2313: I have finally receive the official CT read of the chest which demonstrate significant adenopathy and suggestion of lymphoma further corroborating patient's presenting symptoms. I will discuss all results and findings with the patient at bedside, ESR, CRP as well as LDH are elevated, patient is no longer febrile and will ensure that she has referral for Hematology/Oncology. I do not think that the urinalysis is indicative of a UTI and instead I feel that this is a contaminated sample. 2329: I discussed case with Dr. Faulkner, hematology/oncology, who will insure that the patient gets into the clinic next week and will check up on her over the weekend. Patient has been informed of her suspected diagnosis and she is otherwise hemodynamically stable for discharge to home. Differential Diagnosis Please see the discussion above Admission/Observation Consideration of admission/observation: Escalation of care including admission/observation considered Lab Data Please see the discussion above 12/08/22 16:51 12/08/22 16:51 Labs: Lab Results 12/08/22 12/08/22 12/08/22 Range/Units 16:51 16:51 16:51 WBC 4.4 L (4.8-10.8) X10*3/uL RBC 3.98 L D (4.20-5.50) X10*6/uL Hgb 11.6 L D (12.0-16.0) g/dl Hct 34.5 L D (37.0-47.0) % MCV 86.7 (80.0-98.0) fL MCH 29.1 (27.0-33.0) pg MCHC 33.6 (31.0-35.0) g/dl RDW 13.2 (11.0-16.0) % Plt Count 116 L D (160-400) X10*3/uL MPV 10.6 (9.4-12.3) fL Immature Gran % (Auto) 0.2 (0.0-0.4) % Neut % (Auto) 65.6 (45-73) % Lymph % (Auto) 23.5 (20-40) % [place] % (Auto) 10.5 (2-11) % Eos % (Auto) 0.0 (0-4) % Baso % (Auto) 0.2 (0-2) % Lymph # (Auto) 1.0 L (1.2-4.9) X10*3/uL [place] # (Auto) 0.5 (0.1-1.2) X10*3/uL Eos # (Auto) 0.0 (0.0-0.4) X10*3/uL Baso # (Auto) 0.0 (0.0-0.2) X10*3/uL Abs Immat Gran (auto) 0.01 (0.00-0.03) X10*3/uL Absolute Neuts (auto) 2.9 (2.0-8.3) x10*3/uL Absolute Nucleated RBC 0.000 (0.0-0.012) X10*3/uL Nucleated RBC % (auto) 0.0 (0.0-0.2) /100WBC Smear Tech's Comments VERIFIED ESR (0-20) MM/HR Sodium 132 L (135-145) mmol/L Potassium 4.0 (3.3-5.1) mmol/L Chloride 99 (96-108) mmol/L Carbon Dioxide 22 (22-29) mmol/L Anion Gap 15 (12-20) BUN 11 (9-16) mg/dL Creatinine 0.68 (0.5-1.4) mg/dL Estim Creat Clear Calc 89.3 Estimated GFR > 60 Random Glucose 124 H (60-115) mg/dL Lactic Acid (0.5-2.0) mmol/L Calcium 9.4 (8.4-10.2) mg/dL Magnesium 1.8 (1.6-2.6) mg/dL Total Bilirubin 1.0 (0.0-1.0) mg/dL AST 95 H (5-31) U/L ALT 54 H (0-31) U/L Alkaline Phosphatase 127 H (39-117) U/L Lactate Dehydrogenase 555 H (122-220) U/L C-Reactive Protein 1.99 H (< or = 0.50) mg/dL B-Natriuretic Peptide < 10 (<100) pg/mL Total Protein 7.9 (6.5-8.0) g/dL Albumin 3.7 (3.5-5.0) g/dL Urine Color Urine Appearance Urine pH (5.0-9.0) Ur Specific [place] (1.005-1.025) Urine Protein (Neg-Trace) mg/dL Urine Glucose (UA) (Negative) mg/dL Urine Ketones (Negative) mg/dL Urine Blood (Negative) Urine Nitrite (Negative) Ur Leukocyte Esterase (Negative) Urine RBC (0-2) /HPF Urine WBC (0-5) /HPF Ur Squamous Epith Cells (0-2) /HPF Urine Bacteria (None Seen) Hyaline Casts (0-2) /LPF Influenza Type A (PCR) (Negative) Influenza Type B (PCR) (Negative) RSV RNA Qual (PCR) (Negative) SARS-CoV-2 RNA (RT-PCR) (Negative) 12/08/22 12/08/22 12/08/22 Range/Units 16:51 18:06 18:06 WBC (4.8-10.8) X10*3/uL RBC (4.20-5.50) X10*6/uL Hgb (12.0-16.0) g/dl Hct (37.0-47.0) % MCV (80.0-98.0) fL MCH (27.0-33.0) pg MCHC (31.0-35.0) g/dl RDW (11.0-16.0) % Plt Count (160-400) X10*3/uL MPV (9.4-12.3) fL Immature Gran % (Auto) (0.0-0.4) % Neut % (Auto) (45-73) % Lymph % (Auto) (20-40) % [place] % (Auto) (2-11) % Eos % (Auto) (0-4) % Baso % (Auto) (0-2) % Lymph # (Auto) (1.2-4.9) X10*3/uL [place] # (Auto) (0.1-1.2) X10*3/uL Eos # (Auto) (0.0-0.4) X10*3/uL Baso # (Auto) (0.0-0.2) X10*3/uL Abs Immat Gran (auto) (0.00-0.03) X10*3/uL Absolute Neuts (auto) (2.0-8.3) x10*3/uL Absolute Nucleated RBC (0.0-0.012) X10*3/uL Nucleated RBC % (auto) (0.0-0.2) /100WBC Smear Tech's Comments ESR 82 H (0-20) MM/HR Sodium (135-145) mmol/L Potassium (3.3-5.1) mmol/L Chloride (96-108) mmol/L Carbon Dioxide (22-29) mmol/L Anion Gap (12-20) BUN (9-16) mg/dL Creatinine (0.5-1.4) mg/dL Estim Creat Clear Calc Estimated GFR Random Glucose (60-115) mg/dL Lactic Acid 1.8 (0.5-2.0) mmol/L Calcium (8.4-10.2) mg/dL Magnesium (1.6-2.6) mg/dL Total Bilirubin (0.0-1.0) mg/dL AST (5-31) U/L ALT (0-31) U/L Alkaline Phosphatase (39-117) U/L Lactate Dehydrogenase (122-220) U/L C-Reactive Protein (< or = 0.50) mg/dL B-Natriuretic Peptide (<100) pg/mL Total Protein (6.5-8.0) g/dL Albumin (3.5-5.0) g/dL Urine Color Urine Appearance Urine pH (5.0-9.0) Ur Specific [place] (1.005-1.025) Urine Protein (Neg-Trace) mg/dL Urine Glucose (UA) (Negative) mg/dL Urine Ketones (Negative) mg/dL Urine Blood (Negative) Urine Nitrite (Negative) Ur Leukocyte Esterase (Negative) Urine RBC (0-2) /HPF Urine WBC (0-5) /HPF Ur Squamous Epith Cells (0-2) /HPF Urine Bacteria (None Seen) Hyaline Casts (0-2) /LPF Influenza Type A (PCR) NEGATIVE (Negative) Influenza Type B (PCR) NEGATIVE (Negative) RSV RNA Qual (PCR) NEGATIVE (Negative) SARS-CoV-2 RNA (RT-PCR) NEGATIVE (Negative) 12/08/22 Range/Units 20:24 WBC (4.8-10.8) X10*3/uL RBC (4.20-5.50) X10*6/uL Hgb (12.0-16.0) g/dl Hct (37.0-47.0) % MCV (80.0-98.0) fL MCH (27.0-33.0) pg MCHC (31.0-35.0) g/dl RDW (11.0-16.0) % Plt Count (160-400) X10*3/uL MPV (9.4-12.3) fL Immature Gran % (Auto) (0.0-0.4) % Neut % (Auto) (45-73) % Lymph % (Auto) (20-40) % [place] % (Auto) (2-11) % Eos % (Auto) (0-4) % Baso % (Auto) (0-2) % Lymph # (Auto) (1.2-4.9) X10*3/uL [place] # (Auto) (0.1-1.2) X10*3/uL Eos # (Auto) (0.0-0.4) X10*3/uL Baso # (Auto) (0.0-0.2) X10*3/uL Abs Immat Gran (auto) (0.00-0.03) X10*3/uL Absolute Neuts (auto) (2.0-8.3) x10*3/uL Absolute Nucleated RBC (0.0-0.012) X10*3/uL Nucleated RBC % (auto) (0.0-0.2) /100WBC Smear Tech's Comments ESR (0-20) MM/HR Sodium (135-145) mmol/L Potassium (3.3-5.1) mmol/L Chloride (96-108) mmol/L Carbon Dioxide (22-29) mmol/L Anion Gap (12-20) BUN (9-16) mg/dL Creatinine (0.5-1.4) mg/dL Estim Creat Clear Calc Estimated GFR Random Glucose (60-115) mg/dL Lactic Acid (0.5-2.0) mmol/L Calcium (8.4-10.2) mg/dL Magnesium (1.6-2.6) mg/dL Total Bilirubin (0.0-1.0) mg/dL AST (5-31) U/L ALT (0-31) U/L Alkaline Phosphatase (39-117) U/L Lactate Dehydrogenase (122-220) U/L C-Reactive Protein (< or = 0.50) mg/dL B-Natriuretic Peptide (<100) pg/mL Total Protein (6.5-8.0) g/dL Albumin (3.5-5.0) g/dL Urine Color Yellow Urine Appearance Clear Urine pH 5.5 (5.0-9.0) Ur Specific [place] <= 1.005 (1.005-1.025) Urine Protein Negative (Neg-Trace) mg/dL Urine Glucose (UA) Negative (Negative) mg/dL Urine Ketones Negative (Negative) mg/dL Urine Blood Negative (Negative) Urine Nitrite Negative (Negative) Ur Leukocyte Esterase Moderate (2+) H (Negative) Urine RBC 0-2 (0-2) /HPF Urine WBC 11-20 H (0-5) /HPF Ur Squamous Epith Cells 11-20 (0-2) /HPF Urine Bacteria 1+ (None Seen) Hyaline Casts 0-2 (0-2) /LPF Influenza Type A (PCR) (Negative) Influenza Type B (PCR) (Negative) RSV RNA Qual (PCR) (Negative) SARS-CoV-2 RNA (RT-PCR) (Negative) Independent Interpretation I performed an independent interpretation of an: EKG Interpretation: Sinus tachycardia, HR-103, no STEMI, IN/QRS/QTC is within normal limits. Radiology Impression Radiologist Impression: Please see the discussion above, otherwise my interpretation is in agreement with radiology's impression. External Record Review External record reviewed: Outpatient record and Prior outpatient labs Critical Care Time Critical Care Time Critical Care Time: Yes Total Critical Care Time: 60 Attestation: I personally attest to this time spent taking care of the patient. Discharge Plan Discharge Clinical Impression: Adenopathy Patient Disposition: Home, Self-Care Instructions: Lymphadenopathy (ED) Additional Instructions: Resume all home medications as prescribed You have been given a referral and should call the office hematology/oncology on Sunday. Please contact your primary care provider on Sunday as well. Do not hesitate to return to the emergency room for any problems. Prescriptions: No Action cyclobenzaprine 10 mg tablet 10 mg PO Q8H Qty: 20 0RF tramadol 50 mg tablet 50 mg PO Q6H PRN (Reason: pain) Qty: 20 0RF gabapentin 300 mg capsule 300 mg PO BEDTIME Qty: 30 0RF tramadol 50 mg tablet 50 mg PO Q6H PRN (Reason: pain) Qty: 20 0RF gabapentin 300 mg capsule 300 mg PO BID Qty: 60 2RF albuterol sulfate [ProAir HFA] 90 mcg/actuation HFA aerosol inhaler 2 puff inhalation Q4-6H PRN (Reason: shortness of breath or wheezing) Qty: 8.5 0RF albuterol sulfate 2.5 mg /3 mL (0.083 %) solution for nebulization 2.5 mg inhalation Q4-6H PRN (Reason: shortness of breath or wheezing) Qty: 90 0RF hydromorphone [Dilaudid] 2 mg tablet 2 mg PO Q8H PRN (Reason: pain) Qty: 14 0RF Rx Instructions: Partial Fill upon patient request. doxycycline hyclate 100 mg capsule 100 mg PO BID 10 Days Qty: 20 0RF cephalexin 500 mg tablet 500 mg PO Q6H 10 Days Qty: 40 0RF lidocaine [Lidoderm] 5 % adhesive patch,medicated 1 patch topical DAILY Qty: 15 0RF Rx Instructions: leave on most painful area for up to 12 hrs Referrals: Gavin Faulkner MD [Physician] -
[2022-12-08 14:52] VITALS: BP 146/71; PULSE 112; RESP 22; TEMP 36.8; O2SAT 97; BMI 32.9
[2022-12-08 16:03] VITALS: BP 120/64; BP 124/69; PULSE 104; PULSE 107
[2022-12-08 16:05] VITALS: BP 113/64; PULSE 111
[2022-12-08 17:03] LABS: Basophils Percent Auto 0.2 % (0-2); Hematocrit 34.5 % (37.0-47.0); Hemoglobin 11.6 g/dl (12.0-16.0); Imm Gran Abs Auto 0.01 X10*3/uL (0.00-0.03); Imm Gran Pct Auto 0.2 % (0.0-0.4); Lymphocytes Percent Auto 23.5 % (20-40); MANUAL DIFF FLAG SCAN; Mean Corpuscular HGB Conc 33.6 g/dl (31.0-35.0); Mean Corpuscular Hemoglobin 29.1 pg (27.0-33.0); Mean Corpuscular Volume 86.7 fL (80.0-98.0); Mean Platelet Volume 10.6 fL (9.4-12.3); Monocytes Absolute Auto 0.5 X10*3/uL (0.1-1.2); Monocytes Percent Auto 10.5 % (2-11); Neutrophils Absolute Auto 2.9 x10*3/uL (2.0-8.3); Neutrophils Percent Auto 65.6 % (45-73); Platelet Count 116 X10*3/uL (160-400); Red Blood Count 3.98 X10*6/uL (4.20-5.50); Red Cell Distribution Width 13.2 % (11.0-16.0); SCAN SMEAR FLAG 1; White Blood Count 4.4 X10*3/uL (4.8-10.8)
[2022-12-08] MEDS: 0.9 % Sodium Chloride 1,000 ML 999 ML IV ×2 (17:05→18:39)
[2022-12-08] MEDS: diazePAM 2 MG TABLET PO (17:05)
[2022-12-08 17:20] LABS: SLIDE REVIEW VERIFIED
[2022-12-08 17:23] LABS: Alanine Aminotransferase 54 U/L (0-31); Albumin Level 3.7 g/dL (3.5-5.0); Alkaline Phosphatase 127 U/L (39-117); Anion Gap 15 (12-20); Aspartate Amino Transferase 95 U/L (5-31); B Type Natriuretic Peptide < 10 pg/mL (<100); Blood Urea Nitrogen 11 mg/dL (9-16); Calcium 9.4 mg/dL (8.4-10.2); Carbon Dioxide 22 mmol/L (22-29); Chloride 99 mmol/L (96-108); Creatinine Clr Calc Pharmacy 89.3; Estimated Glomerular Filt Rate > 60; Glucose Random 124 mg/dL (60-115); Magnesium 1.8 mg/dL (1.6-2.6); Sodium 132 mmol/L (135-145); Total Protein 7.9 g/dL (6.5-8.0)
--- NOTE | 2022-12-08 17:53 | ECG_ITS ---
Test Reason : DIZZINESS Blood Pressure : / mmHG Vent. Rate : 103 BPM Atrial Rate : 103 BPM P-R Int : 140 ms QRS Dur : 074 ms QT Int : 318 ms P-R-T Axes : 012 -36 -09 degrees QTc Int : 416 ms Sinus tachycardia Left axis deviation Low voltage QRS Nonspecific T wave changes Septal infarct , age undetermined Abnormal ECG When compared with ECG of 26-JUN-2022 20:14, Nonspecific T wave changes Referred By: Dianne Frey Electronically Signed By:Bj Shore
[2022-12-08 18:11] VITALS: BP 113/58; PULSE 104; RESP 18; TEMP 39; O2SAT 97
[2022-12-08 18:17] LABS: C Reactive Protein 1.99 mg/dL (< or = 0.50)
[2022-12-08 18:22] LABS: Lactic Acid 1.8 mmol/L (0.5-2.0)
--- NOTE | 2022-12-08 18:23 | PC.NURSE ---
pt alert and oriented, reports improvement in her headache. plan for mri/ct scan. fluids infusing at this time. lab work/cultures obtained and sent.
[2022-12-08] MEDS: Acetaminophen 325 MG TABLET 975 MG PO (18:37)
[2022-12-08 18:38] LABS: Erythrocyte Sedimentation Rate 82 MM/HR (0-20)
[2022-12-08] MEDS: cefTRIAXone sodium 1 GM in 0.9 % Sodium Chloride 50 ML IV (18:40)
[2022-12-08 19:14] LABS: Influenza A PCR NEGATIVE (Negative); Influenza B PCR NEGATIVE (Negative); Resp Syncy Virus RNA Qual PCR NEGATIVE (Negative); SARS COV2 PCR INHOUSE NEGATIVE (Negative)
[2022-12-08 20:17] VITALS: BP 105/55; PULSE 92; RESP 16; TEMP 37.4; O2SAT 94
[2022-12-08 20:29] LABS: Appearance Urine Clear; Color Urine Yellow; Glucose Urine UA Negative (Negative); Leukocyte Esterase Urine Moderate (2+) (Negative); Nitrite Urine Negative (Negative); PH 5.5 (5.0-9.0); Specific Gravity - Urine <= 1.005 (1.005-1.025); UMIC TRIGGER UACC YES; Urine Blood Negative (Negative); Urine Ketones Negative (Negative); Urine Protein Negative (Neg-Trace)
[2022-12-08 21:00] LABS: Lactate Dehydrogenase 555 U/L (122-220)
[2022-12-08 22:24] LABS: Bacteria Urine 1+ (None Seen); Hyaline Casts Urine 0-2 /LPF (0-2); RBC Urine 0-2 /HPF (0-2); UACC Culture Trigger YES
[2022-12-08 23:28] VITALS: BP 124/59; PULSE 87; RESP 16; TEMP 37.3; O2SAT 96
[2022-12-12 05:40] LABS: Lyme Abs Screen <0.90 index
== END 2022-12-09 00:03 | disposition home or self-care (01) ==
PROVIDERS: Physician Assistant; Emergency Provider Student in an Organized Health Care Education/Training Program
DX: R59.9 Enlarged lymph nodes, unspecified (principal); R42 Dizziness and giddiness; R06.02 Shortness of breath; R11.2 Nausea with vomiting, unspecified; R50.9 Fever, unspecified; Z20.822 Contact with and (suspected) exposure to COVID-19; Z20.828 Contact with and (suspected) exposure to other viral communicable diseases; Z79.899 Other long term (current) drug therapy
CPT/HCPCS: 0241U; 36415; 70450; 70551; 71045; 71250; 80053; 81001; 83605; 83615; 83735; 83880; 85025; 85652; 86140; 86617; 86618; 87040; 87086; 93005; 96361; 96374; 99285; J0696

== ENCOUNTER 2022-12-19 12:36 | Outpatient (REF) | payer OTHER, SELFPAY ==
--- NOTE | ~2022-12-19 | PE_ITS ---
EXAMINATION: Fluorine-18 FDG PET/CT Scan CLINICAL INDICATION: Initial treatment management. Lymphoma. PROCEDURE: 56 minutes following the intravenous administration of 18.4 mCi of fluorine 18 FDG, images from base of the skull to the mid thigh were obtained using a combined PET/CT scanner with CT scan based attenuation correction. No intravenous contrast was administered. Transverse, coronal, sagittal, and volume reconstruction projections were obtained. The patient's blood glucose as determined by a finger stick, was 69 mg/dl immediately prior to injection. The radiotracer was injected through the left hand superficial vein, without any complication. Total CT exam dose-length product 612.30 mGy-cm * These CT images were obtained using dose optimization techniques as appropriate, variously including the following: Automated exposure control * Adjustment of mA and/or kV according to patient size (this includes techniques or standardized protocols for targeted exams where dose is matched to indication/reason for exam; i.e. extremities or head) * Use of iterative reconstruction technique COMPARISON: CT of the chest done on 12/08/[address] of the abdomen and pelvis done on 07/18/2022 and 06/26/2022. FINDINGS: HEAD AND NECK: There are 2 right-sided level 2 FDG avid cervical lymph nodes present with SUV max measuring between 2.6 and 3.3 (30/267). No evidence of any Waldeyer's ring involvement. THORAX: There are multiple FDG avid right paratracheal, prevascular, aortopulmonary, subcarinal and mild FDG avid bilateral hilar lymph nodes present. The dominant right paratracheal lymph node at superior mediastinum measures 1.3 cm at its maximum short axis dimension with SUV max of 5.0. Further inferior right paratracheal dominant lymph node seen at the level of the azygos arch measures approximately 1.1 cm at its maximum short axis dimension with SUV max of 4.2 (67/267). The aortopulmonary lymph nodes seen to the left of the midline measures 1.7 cm at its maximum short axis dimension with SUV max of 4.1 (67/267). There are bilateral morphologically normal-appearing mild FDG avid axillary lymph nodes present with SUV max of 3.6 on the left 2.5 on the right. There are no FDG avid internal mammary lymphadenopathy. Solitary subcentimeter calcified presumed granuloma is noted at the right posterior costophrenic sulcus (126/349). No evidence of any suspicious FDG avid lung nodule and/or mass on either side. No FDG avid pleural or pericardial effusion. ABDOMEN AND PELVIS: The liver measures 17.7 cm at its maximum craniocaudal dimension. Evidence of caudate lobe hypertrophy present. The spleen measures 16.3 cm (302/512-coronal images), shows mild increased FDG avidity with SUV max of 3.2 (124/267). The gallbladder, biliary tree and pancreas and both adrenal glands are unremarkable. Photopenic circumscribed hypodensity with Hounsfield value of 11 is noted involving the mid posterior cortex of the right kidney, consistent with an incidental cyst. Otherwise both kidneys are unremarkable. Physiologic radiotracer activity is present within the bowel. However, there is a superimposed discrete focal relatively intense FDG avidity present within the distal part of the sigmoid colon within the presacral region with SUV max of 6.8 (202/267), for which direct visualization/colonoscopy is recommended for further clarification. Specific note is made of multiple FDG avid upper abdominal/periportal, periceliac axis and gastrohepatic lymph nodes with the dominant lymph node measuring approximately 1.6 cm with SUV max of 4.4 (119/267). Adjacent smaller lymph node measures approximately 1.0 cm at its maximum short axis dimension with SUV max of 3.8 (117/267). There are no FDG avid lymphadenopathy identified within the remainder of the retroperitoneum or within the mesentery and/or in the pelvis and groin. MUSCULOSKELETAL: No FDG avid osseous disease. VASCULAR: Mild atherosclerotic disease of the thoracic aorta. No significant calcific atherosclerotic disease of the coronary arteries and no evidence of aneurysm. SUV max of mediastinal blood pool: 1.7 SUV max of liver: 2.9 PET/PET CT fusion skull to thigh IMPRESSION: 1. Abnormal study. Multi station FDG avid lymphadenopathy are noted both above and below the diaphragm. In addition, the spleen is mildly enlarged and shows mild increased FDG avidity without any focal abnormality. No evidence of any FDG avid osseous disease. 2. Incidental note is made of focal FDG avidity involving the distal part of the sigmoid colon, for which direct visualization/colonoscopy is usually recommended.
== END 2022-12-19 12:37 | disposition home or self-care (01) ==
LOC: HO.PET 12:36
PROVIDERS: Visit Provider Internal Medicine Medical Oncology
DX: Z13.89 Encounter for screening for other disorder (principal)

== ENCOUNTER 2023-04-26 14:08 | Emergency (ER) | payer OTHER, SELFPAY ==
[2023-04-26 14:36] VITALS: BP 112/67; PULSE 86; RESP 18; TEMP 36.1; O2SAT 98; BMI 28.8
--- NOTE | 2023-04-26 14:38 | ED.GENADULT ---
HPI - General Adult General Chief complaint: General Medical Stated complaint: Rash Time Seen by Provider: 04/26/23 15:29 Source: patient, RN notes reviewed and old records reviewed Mode of arrival: ambulatory History of Present Illness HPI narrative: 57-year-old female with no significant past medical history presenting to the ED complaining of pruritic rash diffusely over body for the last 3-4 days. Admits went to urgent care today and was told use topical lotion without relief. Denies new exposures including soaps/lotions/detergent, new medications, travel, no tick or insect bites. Denies fever or SOB Onset (ago): day(s) Related Data Previous Rx's Medication Instructions Recorded cephalexin 500 mg tablet 500 mg PO Q6H 10 days #40 tabs 04/01/22 doxycycline hyclate 100 mg capsule 100 mg PO BID 10 days #20 caps 04/01/22 lidocaine 5 % topical patch 1 patch topical DAILY #15 ea 04/29/22 (Lidoderm) cyclobenzaprine 10 mg tablet 10 mg PO Q8H #20 tabs 06/02/22 gabapentin 300 mg capsule 300 mg PO BEDTIME #30 caps 06/02/22 tramadol 50 mg tablet 50 mg PO Q6H PRN pain #20 tabs 06/02/22 albuterol sulfate 2.5 mg/3 mL 2.5 mg (3 mL) inhalation Q4-6H PRN 06/26/22 (0.083 %) solution for nebulization shortness of breath or wheezing #90 mL albuterol sulfate 90 mcg/actuation 2 puff inhalation Q4-6H PRN 06/26/22 aerosol inhaler (ProAir HFA) shortness of breath or wheezing #8.5 grams gabapentin 300 mg capsule 300 mg PO BID #60 caps 06/26/22 tramadol 50 mg tablet 50 mg PO Q6H PRN pain #20 tabs 06/26/22 hydromorphone 2 mg tablet 2 mg PO Q8H PRN pain #14 tabs 07/23/22 (Dilaudid) cetirizine 10 mg tablet (Zyrtec) 10 mg PO DAILY #10 tabs 04/26/23 diphenhydramine HCl 25 mg capsule 25 mg PO TID PRN itching #14 caps 04/26/23 (Benadryl) hydrocortisone 1 % topical cream 1 appl topical BID PRN rash #28.35 04/26/23 (Anti-Itch (hydrocortisone)) grams prednisone 20 mg tablet 40 mg (2 x 20 mg) PO DAILY 5 days 04/26/23 #10 tabs Allergies Allergy/AdvReac Type Severity Reaction Status Date / Time morphine Allergy Vomiting Verified 04/01/22 17:22 Penicillins Allergy Headache Verified 04/01/22 17:22 Review of Systems Review of Systems: Constitutional: No Fever, No Chills ENT/Mouth: No Ear Pain, No Nasal Congestion,No sore throat, No Rhinorrhea, No Swallowing Difficulty Cardiovascular: No Chest Pain, No SOB Respiratory: No Cough, No Sputum Musculoskeletal: No joint pain, No Myalgias, No Joint Swelling Skin: No Skin Lesions, + rash Neuro: No Weakness Yes all other systems are reviewed and are negative Constitutional: Constitutional: Reports as per [facility] Past Medical History Attestation statement: The following information was validated with the patient. Source: old records reviewed Social History Social History Alcohol intake: never Advance Directives: No Advance Directives Information Provided: No Physical Exam ED Vital Signs: Vital Signs - 24 hr 04/26/23 14:36 Temperature 97.0 F Pulse Rate 86 Respiratory Rate 18 Blood Pressure 112/67 Pulse Oximetry 98 Oxygen Delivery Method Room Air BMI result Body Mass Index 28.8 Const General: cooperative, healthy appearing and no acute distress Orientation/consciousness: patient oriented x3 Limitations: no limitations HENMT Head: Yes normal to inspection and Yes atraumatic Ears: hearing grossly normal bilaterally General nose exam: Normal external nose present Face and sinus: Yes normal facial exam Mouth: Normal oral and palatal mucosa present Throat: Yes tonsils normal, Yes uvula midline, No uvula laterally displaced and No uvular edema Eyes General: appearance normal, both eyes and all related structures EOM: EOMs intact bilaterally Neck Neck: Yes normal visual inspection and Yes no meningeal signs Resp Effort & Inspection: normal respiratory effort, no respiratory distress and no stridor Auscultation: clear to auscultation bilaterally and no wheezes Cardio Rate: regular rate Heart sounds: S1 normal heart sound present and S2 normal heart sound present Skin Other: Scant erythematous macularpapular rash noted diffusely over body including thighs, upper extremities, and abdomen. No sloshing. No pustules, fluctuance or induration. No palm/sole or mucous membrane involvement Wounds: no wounds Neuro General: patient oriented x3, tone normal and no meningeal signs Cranial nerves: Yes CN's II-XII intact bilaterally Gait exam (Neuro): Normal gait present Extrem General: Yes normal to inspection Course Course Course Narrative: This is an RME: Additional HPI, ROS, PE not included below will be deferred to primary provider. 57 year old female presents w/ rash throughout body X few days worsening. Plan- EMC appropriate -leukopenia noted which appears acute on chronic. Chronic transaminitis. Labs otherwise reassuring > will discharge with topical steroid, oral steroid, Benadryl/Zyrtec and dermatology follow-up Results discussed with patient including worrisome signs and symptoms and strict return precautions, and when to return to the emergency department. They verbalized understanding and feel safe for discharge at this time. Medications Administered Discontinued Medications Generic Name Dose Route Start Last Admin Trade Name Freq PRN Reason Stop Dose Admin Loratadine 10 mg 04/26/23 16:56 04/26/23 17:06 Loratadine 10 Mg Tablet PO 04/26/23 16:57 10 mg ONCE ONE Administration Prednisone 40 mg 04/26/23 16:56 04/26/23 17:06 Prednisone 20 Mg Tablet PO 04/26/23 16:57 40 mg ONCE ONE Administration Medical Decision Making Medical Decision Making [facility] Narrative: 57-year-old female with no significant past medical history presenting to the ED complaining of pruritic rash diffusely over body for the last 3-4 days. On exam vital signs stable, NAD, nontoxic appearing, physical exam as noted above. Rash without noted sloughing, no mucous membrane, palm or sole involvement. Concern for contact dermatitis versus allergic reaction. No evidence of SJS/TENs. Lower suspicion for tick or insect bite including Lyme Labs ordered in triage Please refer to course for remaining clinical decision making, interpretation of labs/imaging results, and discussions with consultants and/or family members. Differential Diagnosis Differential Diagnoses: The differential diagnosis associated with the presentation includes As above Lab Data [facility] Lab Attestation statement: I reviewed the patient's lab results. 04/26/23 14:58 04/26/23 14:58 Labs: Lab Results 04/26/23 Range/Units 14:58 WBC 3.8 L (4.8-10.8) X10*3/uL RBC 4.55 (4.20-5.50) X10*6/uL Hgb 13.3 (12.0-16.0) g/dl Hct 40.4 (37.0-47.0) % MCV 88.8 (80.0-98.0) fL MCH 29.2 (27.0-33.0) pg MCHC 32.9 (31.0-35.0) g/dl RDW 13.5 (11.0-16.0) % Plt Count 170 D (160-400) X10*3/uL MPV 10.4 (9.4-12.3) fL Immature Gran % (Auto) 0.3 (0.0-0.4) % Neut % (Auto) 64.9 (45-73) % Lymph % (Auto) 23.9 (20-40) % [place] % (Auto) 9.0 (2-11) % Eos % (Auto) 1.6 (0-4) % Baso % (Auto) 0.3 (0-2) % Lymph # (Auto) 0.9 L (1.2-4.9) X10*3/uL [place] # (Auto) 0.3 (0.1-1.2) X10*3/uL Eos # (Auto) 0.1 (0.0-0.4) X10*3/uL Baso # (Auto) 0.0 (0.0-0.2) X10*3/uL Abs Immat Gran (auto) 0.01 (0.00-0.03) X10*3/uL Absolute Neuts (auto) 2.4 (2.0-8.3) x10*3/uL Absolute Nucleated RBC 0.000 (0.0-0.012) X10*3/uL Nucleated RBC % (auto) 0.0 (0.0-0.2) /100WBC Sodium 138 (135-145) mmol/L Potassium 4.1 (3.3-5.1) mmol/L Chloride 104 (96-108) mmol/L Carbon Dioxide 25 (22-29) mmol/L Anion Gap 13 (12-20) BUN 10 (9-16) mg/dL Creatinine 0.68 (0.5-1.4) mg/dL Estim Creat Clear Calc 83.4 Estimated GFR > 60 Random Glucose 169 H (60-115) mg/dL Calcium 9.2 (8.4-10.2) mg/dL Total Bilirubin 0.4 (0.0-1.0) mg/dL AST 84 H (5-31) U/L ALT 67 H (0-31) U/L Alkaline Phosphatase 172 H (39-117) U/L Total Protein 7.6 (6.5-8.0) g/dL Albumin 3.8 (3.5-5.0) g/dL External Record Review External record reviewed: Inpatient record, Office record, Outpatient record, Prior outpatient labs, Prior outpatient radiology, Primary care record and Outside ED record Tests considered The following testing was considered but not selected: As above Discharge Plan Discharge Clinical Impression: Rash Patient Disposition: Home, Self-Care Instructions: Acute Rash (ED) Additional Instructions: take prednisone as prescribed use hydrocortisone cream on rash only. avoid application to face, hands, feet and genital area in addition benadrly and Zyrtec will help with itching. Benadryl will make you drowsy, take at night. Do not drive while taking Benadryl Please follow-up with dermatology and her doctor Is symptoms persist or worsen you develop fever return to the ED Prescriptions: New hydrocortisone [Anti-Itch (HC)] 1 % cream 1 appl topical BID PRN (Reason: rash) Qty: 28.35 0RF diphenhydramine HCl [Benadryl] 25 mg capsule 25 mg PO TID PRN (Reason: itching) Qty: 14 0RF cetirizine [Zyrtec] 10 mg tablet 10 mg PO DAILY Qty: 10 0RF prednisone 20 mg tablet 40 mg PO DAILY 5 Days Qty: 10 0RF No Action cyclobenzaprine 10 mg tablet 10 mg PO Q8H Qty: 20 0RF tramadol 50 mg tablet 50 mg PO Q6H PRN (Reason: pain) Qty: 20 0RF gabapentin 300 mg capsule 300 mg PO BEDTIME Qty: 30 0RF tramadol 50 mg tablet 50 mg PO Q6H PRN (Reason: pain) Qty: 20 0RF gabapentin 300 mg capsule 300 mg PO BID Qty: 60 2RF albuterol sulfate [ProAir HFA] 90 mcg/actuation HFA aerosol inhaler 2 puff inhalation Q4-6H PRN (Reason: shortness of breath or wheezing) Qty: 8.5 0RF albuterol sulfate 2.5 mg /3 mL (0.083 %) solution for nebulization 2.5 mg inhalation Q4-6H PRN (Reason: shortness of breath or wheezing) Qty: 90 0RF hydromorphone [Dilaudid] 2 mg tablet 2 mg PO Q8H PRN (Reason: pain) Qty: 14 0RF Rx Instructions: Partial Fill upon patient request. doxycycline hyclate 100 mg capsule 100 mg PO BID 10 Days Qty: 20 0RF cephalexin 500 mg tablet 500 mg PO Q6H 10 Days Qty: 40 0RF lidocaine [Lidoderm] 5 % adhesive patch,medicated 1 patch topical DAILY Qty: 15 0RF Rx Instructions: leave on most painful area for up to 12 hrs Referrals: [facility] [Outside] Interventions: ED Discharge Assessment Last Done: 04/26/23 17:33 Discharge Date/Time: 04/26/23 17:33
[2023-04-26 15:14] LABS: Basophils Percent Auto 0.3 % (0-2); Eosinophils Absolute Auto 0.1 X10*3/uL (0.0-0.4); Eosinophils Percent Auto 1.6 % (0-4); Hematocrit 40.4 % (37.0-47.0); Hemoglobin 13.3 g/dl (12.0-16.0); Imm Gran Abs Auto 0.01 X10*3/uL (0.00-0.03); Imm Gran Pct Auto 0.3 % (0.0-0.4); Lymphocytes Absolute Auto 0.9 X10*3/uL (1.2-4.9); Lymphocytes Percent Auto 23.9 % (20-40); MANUAL DIFF FLAG NO; Mean Corpuscular HGB Conc 32.9 g/dl (31.0-35.0); Mean Corpuscular Hemoglobin 29.2 pg (27.0-33.0); Mean Corpuscular Volume 88.8 fL (80.0-98.0); Mean Platelet Volume 10.4 fL (9.4-12.3); Monocytes Absolute Auto 0.3 X10*3/uL (0.1-1.2); Neutrophils Absolute Auto 2.4 x10*3/uL (2.0-8.3); Neutrophils Percent Auto 64.9 % (45-73); Platelet Count 170 X10*3/uL (160-400); Red Blood Count 4.55 X10*6/uL (4.20-5.50); Red Cell Distribution Width 13.5 % (11.0-16.0); White Blood Count 3.8 X10*3/uL (4.8-10.8)
[2023-04-26 15:41] LABS: Alanine Aminotransferase 67 U/L (0-31); Albumin Level 3.8 g/dL (3.5-5.0); Alkaline Phosphatase 172 U/L (39-117); Anion Gap 13 (12-20); Aspartate Amino Transferase 84 U/L (5-31); Bilirubin Total 0.4 mg/dL (0.0-1.0); Blood Urea Nitrogen 10 mg/dL (9-16); Calcium 9.2 mg/dL (8.4-10.2); Carbon Dioxide 25 mmol/L (22-29); Chloride 104 mmol/L (96-108); Creatinine Clr Calc Pharmacy 83.4; Estimated Glomerular Filt Rate > 60; Glucose Random 169 mg/dL (60-115); Potassium 4.1 mmol/L (3.3-5.1); Sodium 138 mmol/L (135-145); Total Protein 7.6 g/dL (6.5-8.0)
[2023-04-26] MEDS: predniSONE 20 MG TABLET 40 MG PO (17:06)
[2023-04-26] MEDS: Loratadine 10 MG TABLET PO (17:06)
== END 2023-04-26 17:33 | disposition home or self-care (01) ==
PROVIDERS: Physician Assistant; Emergency Provider Emergency Medicine; PCP Student in an Organized Health Care Education/Training Program
DX: R21 Rash and other nonspecific skin eruption (principal); Z79.899 Other long term (current) drug therapy
CPT/HCPCS: 36415; 80053; 85025; 99282; 99283

== ENCOUNTER 2023-11-22 13:08 | Emergency (ER) | payer OTHER, SELFPAY ==
--- NOTE | ~2023-11-22 | XR_ITS ---
EXAMINATION: XR FOOT, LEFT CLINICAL INFORMATION: Pain COMPARISON: None available. TECHNIQUE: AP, lateral, and oblique views of the left foot. FINDINGS: No fracture or destructive process. Joint spaces are preserved. There is a small plantar heel spur. No radiopaque foreign body. XR/XR foot LT min 3V IMPRESSION: Small plantar spur. No acute abnormalities.
[2023-11-22 13:23] VITALS: BP 155/66; PULSE 99; RESP 18; TEMP 36.3; O2SAT 97; BMI 32.6
--- NOTE | 2023-11-22 13:26 | ED_ITS ---
HPI - Extremity Injury (Lower) General Chief Complaint: Extremity Problem Stated Complaint: l foot pain Time Seen by Provider: 11/22/23 15:26 Source: patient Mode of arrival: ambulatory Limitations: no limitations History of Present Illness ED Provider: Kena DUGAN Narrative: Patient is a 58-year-old female with history of DM presenting to the emergency department with complaint of severe pain to the plantar surface of her left foot for the past week. States she called PCP who referred her to urgent care. She was seen at urgent care and prescribed naproxen but states this is not helpful in decreasing her pain. She denies any injury or other trauma. States pain is worse in the morning and at night, worse with ambulation. She is specifically requesting an x-ray of her foot. Onset (ago): week(s) Injury: Left: foot Severity: severe Relieving factors: nothing Exacerbating factors: weight bearing and movement Other symptoms: none Treatments prior to arrival: NSAIDS Related Data Previous Rx's ?Medication ?Instructions ?Recorded cephalexin 500 mg tablet 500 mg PO Q6H 10 days #40 tabs 04/01/22 doxycycline hyclate 100 mg capsule 100 mg PO BID 10 days #20 caps 04/01/22 lidocaine 5 % topical patch 1 patch topical DAILY #15 ea 04/29/22 (Lidoderm) cyclobenzaprine 10 mg tablet 10 mg PO Q8H #20 tabs 06/02/22 gabapentin 300 mg capsule 300 mg PO BEDTIME #30 caps 06/02/22 tramadol 50 mg tablet 50 mg PO Q6H PRN pain #20 tabs 06/02/22 albuterol sulfate 2.5 mg/3 mL 2.5 mg (3 mL) inhalation Q4-6H PRN 06/26/22 (0.083 %) solution for nebulization shortness of breath or wheezing #90 mL albuterol sulfate 90 mcg/actuation 2 puff inhalation Q4-6H PRN 06/26/22 aerosol inhaler (ProAir HFA) shortness of breath or wheezing #8.5 grams gabapentin 300 mg capsule 300 mg PO BID #60 caps 06/26/22 tramadol 50 mg tablet 50 mg PO Q6H PRN pain #20 tabs 06/26/22 hydromorphone 2 mg tablet 2 mg PO Q8H PRN pain #14 tabs 07/23/22 (Dilaudid) cetirizine 10 mg tablet (Zyrtec) 10 mg PO DAILY #10 tabs 04/26/23 diphenhydramine HCl 25 mg capsule 25 mg PO TID PRN itching #14 caps 04/26/23 (Benadryl) hydrocortisone 1 % topical cream 1 appl topical BID PRN rash #28.35 04/26/23 (Anti-Itch (hydrocortisone)) grams prednisone 20 mg tablet 40 mg (2 x 20 mg) PO DAILY 5 days 04/26/23 #10 tabs diclofenac sodium 1 % topical gel 2 g topical QID #100 grams 11/22/23 Allergies Allergy/AdvReac Type Severity Reaction Status Date / Time morphine Allergy Vomiting Verified 11/22/23 13:29 Penicillins Allergy Headache Verified 11/22/23 13:29 Review of Systems Review of Systems: As per HPI. Yes all other systems are reviewed and are negative Constitutional: Constitutional: Reports as per HPI [facility]LY [facility] Social History Social History Alcohol intake: never Advance Directives: No Advance Directives Information Provided: Yes Do you have a plan to hurt others: No Plan Physical Exam Vital Signs: Vital Signs: Last Vital Signs Temp 97.3 F 11/22/23 13:23 Pulse 99 11/22/23 13:23 Resp 18 11/22/23 13:23 BP 155/66 H 11/22/23 13:23 Pulse Ox 97 11/22/23 13:23 O2 Del Method Room Air 11/22/23 13:23 BMI result Body Mass Index 32.6 Vital signs have been reviewed and appear to be correct. Blood pressure elevated. Heart rate normal. Respiratory rate normal. Temperature normal. Oxygen saturation normal. Const: General: cooperative, healthy appearing and no acute distress Orientation/consciousness: oriented to person, oriented to place, oriented to time and patient oriented x3 Limitations: no limitations HEENT: Head: Yes normocephalic and Yes atraumatic Ears: external ears normal General nose exam: Normal external nose present Face and sinus: Yes face symmetric Mouth: oropharynx normal and moist mucous membranes Throat: Yes uvula midline Eyes: Pupils: Equal, round and reactive pupils present Neck: Neck: Yes normal visual inspection and Yes supple Resp: Effort & Inspection: normal respiratory effort and able to speak in complete sentences Auscultation: clear to auscultation bilaterally Cardio: Rate: regular rate Rhythm: regular rhythm Heart sounds: S1 normal heart sound present and S2 normal heart sound present Skin: General skin exam: elasticity normal and turgor normal Neuro: General: oriented to person, oriented to place, oriented to time, patient oriented x3, moves all extremities, no focal motor deficits and CN's II- XI intact bilaterally Cranial nerves: Yes Equal, round and reactive pupils present Cognition (Neuro): normal cognition Extrem: General: Yes full ROM, Yes normal exam except as noted, Yes no pedal edema and Yes no calf tenderness Left lower extremity: foot Details: normal capillary refill, normal to inspection, tenderness Location: of the plantar foot (along plantar fascia, worst at insertion point), toes with normal ROM and vascular exam Details: dorsalis pedis pulse present and posterior tibial pulse present Psych: Mental Status: mental status grossly normal Affect: normal affect Thought process: Normal thought process present Course Course Course Narrative: This is an RME: Additional HPI, ROS, PE not included below will be deferred to primary provider. RME assessment and note performed by: Daniella Lozano PA-C This is a [id number], with a hx of diabetes, who presents to the ER with a complaint of left foot pain x 1 week. No recent trauma or injury. Was seen at urgent care and was rx'd naproxen. She is requesting an xray of her left foot Plan: xray left foot Medical Decision Making Medical Decision Making MDM Narrative: Patient is a 58-year-old female with history of DM presenting to the emergency department with complaint of severe pain to the plantar surface of her left foot for the past week. On exam patient is awake, A+Ox3, VS WNL, afebrile, normal neurological exam without focal deficits, physical exam findings as above. Given reported symptoms and physical exam findings, initial differential includes plantar fasciitis, muscle strain, sprain. Unlikely fracture. X-ray notable for small plantar heel spur, no acute abnormalities. My interpretation is in agreement with the radiologist's interpretation. Discussed with patient that symptoms and physical exam findings are consistent with plantar fasciitis. Patient requesting topical treatment. Will send prescription for diclofenac. Advised patient that icing the area and performing stretches will be most effective in decreasing her pain. Also discussed orthotics supports for shoes. Advised patient that it will take some time for her pain to subside and she should be consistent with her treatments. Patient provided with informational handouts regarding plantar fasciitis. Instructed her to follow-up with PCP. Return precautions discussed. Patient verbalized understanding of and agreement with plan. Differential Diagnosis Differential Diagnoses: The differential diagnosis associated with the presentation includes As per MDM. Independent Interpretation I performed an independent interpretation of an: Plain X-Ray Interpretation: Left foot x-ray shows small plantar heel spur, no acute abnormalities Radiology Impression Discussion of test interpretation with radiology: I have reviewed the radiologist's reading. Radiologist Impression: XR/XR foot LT min 3V IMPRESSION: Small plantar spur. No acute abnormalities. External Record Review External record reviewed: Inpatient record, Office record and Outpatient record Prescription Management I considered prescription management with: Pain Medication Discharge Plan Discharge Clinical Impression: Plantar fasciitis of left foot Patient Disposition: Home, Self-Care Instructions: Plantar Fasciitis (ED), Plantar Fasciitis Exercises (ED) Additional Instructions: You were evaluated in the emergency department today for left foot pain. Your x-ray was normal. Your pain is due to plantar fasciitis. Please refer to the attached information for treatment and exercises to decrease your pain. You are being prescribed diclofenac gel which you can apply topically to the affected area. We also recommend that you apply ice to the area for 10-15 minutes at a time several times daily, do not apply ice directly to skin. Please follow-up with your primary care provider. Return to the emergency department if you develop new weakness, numbness, tingling, change of color in your foot, fever or any other concerning symptoms. Prescriptions: New diclofenac sodium 1 % gel 2 g topical QID Qty: 100 0RF Rx Instructions: apply to left foot No Action cyclobenzaprine 10 mg tablet 10 mg PO Q8H Qty: 20 0RF tramadol 50 mg tablet 50 mg PO Q6H PRN (Reason: pain) Qty: 20 0RF gabapentin 300 mg capsule 300 mg PO BEDTIME Qty: 30 0RF tramadol 50 mg tablet 50 mg PO Q6H PRN (Reason: pain) Qty: 20 0RF gabapentin 300 mg capsule 300 mg PO BID Qty: 60 2RF albuterol sulfate [ProAir HFA] 90 mcg/actuation HFA aerosol inhaler 2 puff inhalation Q4-6H PRN (Reason: shortness of breath or wheezing) Qty: 8.5 0RF albuterol sulfate 2.5 mg /3 mL (0.083 %) solution for nebulization 2.5 mg inhalation Q4-6H PRN (Reason: shortness of breath or wheezing) Qty: 90 0RF hydromorphone [Dilaudid] 2 mg tablet 2 mg PO Q8H PRN (Reason: pain) Qty: 14 0RF Rx Instructions: Partial Fill upon patient request. doxycycline hyclate 100 mg capsule 100 mg PO BID 10 Days Qty: 20 0RF cephalexin 500 mg tablet 500 mg PO Q6H 10 Days Qty: 40 0RF lidocaine [Lidoderm] 5 % adhesive patch,medicated 1 patch topical DAILY Qty: 15 0RF Rx Instructions: leave on most painful area for up to 12 hrs hydrocortisone [Anti-Itch (HC)] 1 % cream 1 appl topical BID PRN (Reason: rash) Qty: 28.35 0RF diphenhydramine HCl [Benadryl] 25 mg capsule 25 mg PO TID PRN (Reason: itching) Qty: 14 0RF cetirizine [Zyrtec] 10 mg tablet 10 mg PO DAILY Qty: 10 0RF prednisone 20 mg tablet 40 mg PO DAILY 5 Days Qty: 10 0RF Print Language: Greenlandic
[2023-11-22 16:33] VITALS: BP 155/66; PULSE 99; RESP 18; TEMP 36.3; O2SAT 97
== END 2023-11-22 16:34 | disposition home or self-care (01) ==
PROVIDERS: Emergency Provider Emergency Medicine; PCP Student in an Organized Health Care Education/Training Program
DX: M72.2 Plantar fascial fibromatosis (principal); E11.9 Type 2 diabetes mellitus without complications
CPT/HCPCS: 73630; 99282; 99283

== ENCOUNTER 2023-12-27 15:36 | Emergency (ER) | payer OTHER, SELFPAY ==
--- NOTE | ~2023-12-27 | XR_ITS ---
EXAMINATION: XR ANKLE, LEFT CLINICAL INFORMATION: Lateral pain COMPARISON: None available. TECHNIQUE: AP, lateral, and mortise views of the left ankle. FINDINGS: Calcaneal plantar spurring. Ankle mortise anatomic. No fracture. Alignment is anatomic. No erosions. Joint spaces are maintained. Soft tissues are normal. XR/XR ankle LT min 3V IMPRESSION: Calcaneal plantar spurring.
--- NOTE | ~2023-12-27 | US_ITS ---
EXAMINATION: US VENOUS ULTRASOUND WITH DOPPLER LOWER EXTREMITY, LEFT CLINICAL INFORMATION: Left lower extremity pain and swelling COMPARISON: None available. TECHNIQUE: Ultrasound of the deep veins is performed from the hip to the calf with compression sonography and color and pulse Doppler assessment. Spectral analysis with color-flow imaging is performed. FINDINGS: There is normal venous compression and respiratory variation and augmented flow. The visualized common femoral vein, superficial femoral vein, profunda femoral vein, popliteal vein, and the trifurcation region shows no evidence of deep venous thrombosis. There is no significant popliteal fossa cyst. US/US venous duplex LE LT IMPRESSION: No DVT demonstrated in the left lower extremity.
[2023-12-27 15:52] VITALS: BP 127/55; PULSE 99; RESP 20; TEMP 36.1; O2SAT 97; BMI 30.6
--- NOTE | 2023-12-27 15:52 | ED_ITS ---
HPI - Extremity Injury (Lower) General Chief Complaint: Extremity Problem Stated Complaint: lft leg pain Time Seen by Provider: 12/27/23 17:06 Source: patient and old records reviewed Mode of arrival: ambulatory Limitations: no limitations History of Present Illness ED Provider: Yordan Gonzalez PA-C HPI Narrative: 58-year-old female presents to the ER for evaluation of left foot pain in the h eel along with left knee pain. She states it hurts to walk on her feet and she has severe pain in her heel after being on her feet for several hours. She is wearing Crocs. She reports swelling in her left knee and ankle. No specific injury. She feels the pain shoots from her heel up to her knee. No calf pain. No chest pain or shortness of breath. 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 MD complaint: knee injury, ankle injury and foot injury Injury: Left: knee, ankle and foot Type of Injury: unknown Place: home Severity: moderate Relieving factors: rest Exacerbating factors: weight bearing and palpation Associated symptoms: ambulatory Other symptoms: none Related Data Previous Rx's ?Medication ?Instructions ?Recorded cephalexin 500 mg tablet 500 mg PO Q6H 10 days #40 tabs 04/01/22 doxycycline hyclate 100 mg capsule 100 mg PO BID 10 days #20 caps 04/01/22 lidocaine 5 % topical patch 1 patch topical DAILY #15 ea 04/29/22 (Lidoderm) cyclobenzaprine 10 mg tablet 10 mg PO Q8H #20 tabs 06/02/22 gabapentin 300 mg capsule 300 mg PO BEDTIME #30 caps 06/02/22 tramadol 50 mg tablet 50 mg PO Q6H PRN pain #20 tabs 06/02/22 albuterol sulfate 2.5 mg/3 mL 2.5 mg (3 mL) inhalation Q4-6H PRN 06/26/22 (0.083 %) solution for nebulization shortness of breath or wheezing #90 mL albuterol sulfate 90 mcg/actuation 2 puff inhalation Q4-6H PRN 06/26/22 aerosol inhaler (ProAir HFA) shortness of breath or wheezing #8.5 grams gabapentin 300 mg capsule 300 mg PO BID #60 caps 06/26/22 tramadol 50 mg tablet 50 mg PO Q6H PRN pain #20 tabs 06/26/22 hydromorphone 2 mg tablet 2 mg PO Q8H PRN pain #14 tabs 07/23/22 (Dilaudid) cetirizine 10 mg tablet (Zyrtec) 10 mg PO DAILY #10 tabs 04/26/23 diphenhydramine HCl 25 mg capsule 25 mg PO TID PRN itching #14 caps 04/26/23 (Benadryl) hydrocortisone 1 % topical cream 1 appl topical BID PRN rash #28.35 04/26/23 (Anti-Itch (hydrocortisone)) grams prednisone 20 mg tablet 40 mg (2 x 20 mg) PO DAILY 5 days 04/26/23 #10 tabs diclofenac sodium 1 % topical gel 2 g topical QID #100 grams 11/22/23 Allergies Allergy/AdvReac Type Severity Reaction Status Date / Time morphine Allergy Vomiting Verified 12/27/23 15:53 Penicillins Allergy Headache Verified 12/27/23 15:53 Review of Systems Review of Systems: Yes all other systems are reviewed and are negative [facility] Social History Social History Alcohol intake: never Advance Directives: Yes Advance Directives on File: Yes Advance Directives Date on File: 12/13/22 Physical Exam Vital Signs: Vital Signs: Last Vital Signs Temp 98.1 F 12/27/23 18:12 Pulse 88 12/27/23 18:12 Resp 18 12/27/23 18:12 BP 136/53 L 12/27/23 18:12 Pulse Ox 96 12/27/23 18:12 O2 Del Method Room Air 12/27/23 18:12 BMI result Body Mass Index 30.6 Appearance: Alert. Oriented X3. No acute distress. HEENT: normal inspection CVS: Normal heart rate and rhythm. Pulses normal. Respiratory: No respiratory distress. Skin: Skin warm and dry. Normal skin color. Normal skin turgor. No rashes. Extremities: normal inspection of the left lower extremity, no joint swelling. No calf tenderness, no redness or warmth. Tenderness to the heel with palp ation. Full range of motion of the ankle and knee, nontender left ankle and knee. No joint laxity appreciated Neuro: Oriented X 3. No motor deficit. No sensory deficit. Steady gait Course Course Course Narrative: This is a Rapid Medical Exam performed in triage by Linda Koch PA-C. Full HPI, ROS and PE to be performed by primary ED provider. 58 year-old F w/ PMHx plantar fascitis presenting to the ED c/o L ankle, foot & calf pain x4 days. States cannot sleep due to pain & worse with ambulation. denies injury, SOB PE: +LLE swelling > medial mal w/ttp and +L calf ttp. NV intact Plan: XR, US Medical Decision Making Medical Decision Making [facility] Narrative: 58-year-old female presents to the ER for evaluation of left foot pain, left ankle pain, left knee pain after being on her feet for several hours a day. There is no swelling of her leg, no erythema or warmth. Low clinical suspicion for DVT. On examination her most tenderness is in her heel. X-ray reviewed shows some calcaneal spurring. She had a duplex done which did not show any evidence of blood clot. At this time patient is stable for discharge home with supportive care. We discussed the importance of wearing supportive sneakers and obtaining inserts for her shoes for more support. Differential Diagnosis Differential Diagnoses: The differential diagnosis associated with the presentation includes Lower extremity DVT, arthritis, muscle strain, ligamentous injury, tendonitis, plantar fasciitis Lab Data [facility] Lab Attestation statement: I reviewed the patient's lab results. Hyperglycemia Labs: Lab Results 12/27/23 Range/Units 17:35 POC Glucose 260 H (60-115) mg/dL Independent Interpretation I performed an independent interpretation of an: Plain X-Ray and Ultrasound Interpretation: Normal left ankle x-ray without any swelling, fracture No clot appreciated on venous duplex Radiology Impression Discussion of test interpretation with radiology: I have reviewed the radiologist's reading. Radiologist Impression: EXAMINATION: XR ANKLE, LEFT CLINICAL INFORMATION: Lateral pain COMPARISON: None available. TECHNIQUE: AP, lateral, and mortise views of the left ankle. FINDINGS: Calcaneal plantar spurring. Ankle mortise anatomic. No fracture. Alignment is anatomic. No erosions. Joint spaces are maintained. Soft tissues are normal. XR/XR ankle LT min 3V IMPRESSION: Calcaneal plantar spurring. EXAMINATION: US VENOUS ULTRASOUND WITH DOPPLER LOWER EXTREMITY, LEFT CLINICAL INFORMATION: Left lower extremity pain and swelling COMPARISON: None available. TECHNIQUE: Ultrasound of the deep veins is performed from the hip to the calf with compression sonography and color and pulse Doppler assessment. Spectral analysis with color-flow imaging is performed. FINDINGS: There is normal venous compression and respiratory variation and augmented flow. The visualized common femoral vein, superficial femoral vein, profunda femoral vein, popliteal vein, and the trifurcation region shows no evidence of deep venous thrombosis. There is no significant popliteal fossa cyst. US/US venous duplex LE LT IMPRESSION: No DVT demonstrated in the left lower extremity. External Record Review External record reviewed: Outpatient record, Prior outpatient labs and Prior outpatient radiology Tests considered The following testing was considered but not selected: X-ray of the knee was considered however there was full range of motion examination and no swelling, no trauma, low suspicion for fracture or effusion Prescription Management I considered prescription management with: Pain Medication Chronic Conditions Patient?s care impacted by: Diabetes Critical Care Time Critical Care Time Critical Care Time: No Discharge Plan Discharge Clinical Impression: Knee pain Qualifiers: Chronicity: chronic Laterality: left Qualified Code(s): M25.562 - Pain in left knee Ankle pain Qualifiers: Chronicity: acute Laterality: left Qualified Code(s): M25.572 - Pain in left ankle and joints of left foot Patient Disposition: Home, Self-Care Instructions: Arthralgia (ED) Additional Instructions: Your ultrasound today did not show any evidence of blood clot. Your ankle x-ray showed some bone spurs in your heel, no acute fractures. If you have worsening symptoms follow-up with your doctor. Recommend wearing supportive sneakers and recommend Dr. Jack's inserts to help support your heel Follow-up with your doctor. Recommend following with Podiatry. Prescriptions: No Action cyclobenzaprine 10 mg tablet 10 mg PO Q8H Qty: 20 0RF tramadol 50 mg tablet 50 mg PO Q6H PRN (Reason: pain) Qty: 20 0RF gabapentin 300 mg capsule 300 mg PO BEDTIME Qty: 30 0RF tramadol 50 mg tablet 50 mg PO Q6H PRN (Reason: pain) Qty: 20 0RF gabapentin 300 mg capsule 300 mg PO BID Qty: 60 2RF albuterol sulfate [ProAir HFA] 90 mcg/actuation HFA aerosol inhaler 2 puff inhalation Q4-6H PRN (Reason: shortness of breath or wheezing) Qty: 8.5 0RF albuterol sulfate 2.5 mg /3 mL (0.083 %) solution for nebulization 2.5 mg inhalation Q4-6H PRN (Reason: shortness of breath or wheezing) Qty: 90 0RF hydromorphone [Dilaudid] 2 mg tablet 2 mg PO Q8H PRN (Reason: pain) Qty: 14 0RF Rx Instructions: Partial Fill upon patient request. doxycycline hyclate 100 mg capsule 100 mg PO BID 10 Days Qty: 20 0RF cephalexin 500 mg tablet 500 mg PO Q6H 10 Days Qty: 40 0RF lidocaine [Lidoderm] 5 % adhesive patch,medicated 1 patch topical DAILY Qty: 15 0RF Rx Instructions: leave on most painful area for up to 12 hrs hydrocortisone [Anti-Itch (HC)] 1 % cream 1 appl topical BID PRN (Reason: rash) Qty: 28.35 0RF diphenhydramine HCl [Benadryl] 25 mg capsule 25 mg PO TID PRN (Reason: itching) Qty: 14 0RF cetirizine [Zyrtec] 10 mg tablet 10 mg PO DAILY Qty: 10 0RF prednisone 20 mg tablet 40 mg PO DAILY 5 Days Qty: 10 0RF diclofenac sodium 1 % gel 2 g topical QID Qty: 100 0RF Rx Instructions: apply to left foot Interventions: ED Discharge Assessment Last Done: 12/27/23 18:12 Discharge Date/Time: 12/27/23 18:12 Print Language: Kyrgyz
[2023-12-27 17:06] VITALS: BP 136/53; PULSE 88; RESP 18; TEMP 36.7; O2SAT 96
[2023-12-27 17:38] LABS: Glucose, Whole Blood 260 mg/dL (60-115)
[2023-12-27 18:12] VITALS: BP 136/53; PULSE 88; RESP 18; TEMP 36.7; O2SAT 96
== END 2023-12-27 18:12 | disposition home or self-care (01) ==
PROVIDERS: Emergency Provider Student in an Organized Health Care Education/Training Program; PCP Student in an Organized Health Care Education/Training Program
DX: M25.562 Pain in left knee (principal); M25.472 Effusion, left ankle; M79.672 Pain in left foot; Z13.1 Encounter for screening for diabetes mellitus
CPT/HCPCS: 73610; 82947; 93971; 99283; 99284

== ENCOUNTER 2024-02-16 12:55 | Emergency (ER) | payer OTHER, SELFPAY ==
--- NOTE | 2024-02-16 | ECG_ITS ---
Test Reason : cp Blood Pressure : / mmHG Vent. Rate : 085 BPM Atrial Rate : 085 BPM P-R Int : 136 ms QRS Dur : 072 ms QT Int : 352 ms P-R-T Axes : 023 -37 -10 degrees QTc Int : 418 ms Normal sinus rhythm Left axis deviation Minimal voltage criteria for LVH, may be normal variant ( R in aVL ) Abnormal ECG When compared with ECG of 08-DEC-2022 18:10, No significant change was found Referred By: Generic ED Physician Electronically Signed By:JIE SCHROEDER
--- NOTE | ~2024-02-16 | XR_ITS ---
EXAMINATION: XR CHEST CLINICAL INFORMATION: Dizziness COMPARISON: None available. TECHNIQUE: X-ray 12/08/2022 FINDINGS: The cardiomediastinal silhouette is within normal limits. The lungs are well expanded. There is no focal consolidation, edema, or effusion. No pneumothorax. No acute osseous abnormality. XR/XR chest 2V IMPRESSION: No evidence of acute pulmonary process. Electronically signed by: Mark Agustin MD 02/16/2024 03:37 PM EDT RP
--- NOTE | ~2024-02-16 | CT_ITS ---
EXAMINATION: CT HEAD WITHOUT CONTRAST CLINICAL INFORMATION: Hypertension. COMPARISON: None. TECHNIQUE: Contiguous axial imaging was performed from the skullbase to vertex without intravenous administration of contrast. This CT examination was performed using dose optimization techniques as appropriate, variously including the following: *Automated exposure control *Adjustment of mA and/or kV according to patient size (this includes techniques or standardized protocols for targeted exams where dose is matched to indication/reason for exam; i.e. extremities or head) *Use of iterative reconstruction technique DLP: 642 mGy-cm. FINDINGS: There is no evidence of acute intracranial hemorrhage or territorial infarction. No abnormal mass effect or midline shift is seen. Farrar to white matter differentiation is well preserved. No extra-axial fluid collections are identified. Incidental small pars intermedia cyst visible. Mild to moderate generalized brain parenchymal volume loss is evident with commensurate ex vacuo prominence of the ventricles. The osseous structures and soft tissues are normal. The mastoid air cells and visualized portions of the paranasal sinuses are well aerated. CT/CT head/brain wo IV con IMPRESSION: No acute intracranial hemorrhage or territorial infarction. [id number] generalized brain parenchymal volume loss. Electronically signed by: Nitesh Garg MD 02/16/2024 02:28 PM EDT
[2024-02-16 13:26] VITALS: BP 115/64; PULSE 86; RESP 16; TEMP 36; O2SAT 95; BMI 31.3
--- NOTE | 2024-02-16 13:28 | ED_ITS ---
HPI - General Adult General Chief complaint: Chest Pain Stated complaint: CP/HBP/Dizziness Time Seen by Provider: 02/16/24 17:45 Source: patient Mode of arrival: ambulatory Limitations: no limitations History of Present Illness ED Provider: Dr. Barbara Boyd HPI narrative: Patient comes to the emergency room complaining of high blood pressure and headache. Patient states that she feels dizzy as well, stating that she feels a bit off balance. Patient states that approximately a 6 hours ago, patient went to her pharmacy to check her blood pressure, they took her blood pressure in her wrist, reading 250/110. Patient was asked by the pharmacist to come to the emergency room for further evaluation. Patient states that earlier today she had a little bit of chest pressure but it self resolved. At this time, mostly complaining of headache throughout the entire front of the head. Patient denies syncope or near-syncope episodes. Patient states that she is not on any blood pressure medications. Patient used to take lisinopril but her blood pressure has been well controlled for many years without meds Related Data Previous Rx's ?Medication ?Instructions ?Recorded cephalexin 500 mg tablet 500 mg PO Q6H 10 days #40 tabs 04/01/22 doxycycline hyclate 100 mg capsule 100 mg PO BID 10 days #20 caps 04/01/22 lidocaine 5 % topical patch 1 patch topical DAILY #15 ea 04/29/22 (Lidoderm) cyclobenzaprine 10 mg tablet 10 mg PO Q8H #20 tabs 06/02/22 gabapentin 300 mg capsule 300 mg PO BEDTIME #30 caps 06/02/22 tramadol 50 mg tablet 50 mg PO Q6H PRN pain #20 tabs 06/02/22 albuterol sulfate 2.5 mg/3 mL 2.5 mg (3 mL) inhalation Q4-6H PRN 06/26/22 (0.083 %) solution for nebulization shortness of breath or wheezing #90 mL albuterol sulfate 90 mcg/actuation 2 puff inhalation Q4-6H PRN 06/26/22 aerosol inhaler (ProAir HFA) shortness of breath or wheezing #8.5 grams gabapentin 300 mg capsule 300 mg PO BID #60 caps 06/26/22 tramadol 50 mg tablet 50 mg PO Q6H PRN pain #20 tabs 06/26/22 hydromorphone 2 mg tablet 2 mg PO Q8H PRN pain #14 tabs 07/23/22 (Dilaudid) cetirizine 10 mg tablet (Zyrtec) 10 mg PO DAILY #10 tabs 04/26/23 diphenhydramine HCl 25 mg capsule 25 mg PO TID PRN itching #14 caps 04/26/23 (Benadryl) hydrocortisone 1 % topical cream 1 appl topical BID PRN rash #28.35 04/26/23 (Anti-Itch (hydrocortisone)) grams prednisone 20 mg tablet 40 mg (2 x 20 mg) PO DAILY 5 days 04/26/23 #10 tabs diclofenac sodium 1 % topical gel 2 g topical QID #100 grams 11/22/23 meclizine 25 mg tablet 25 mg PO BID PRN dizziness #14 tabs 02/16/24 Allergies Allergy/AdvReac Type Severity Reaction Status Date / Time morphine Allergy Vomiting Verified 02/16/24 13:30 Penicillins Allergy Headache Verified 02/16/24 13:30 Review of Systems 2 Review of Systems: Constitutional : No Weight loss, No Fever, No Chills, No Night Sweats, No Fatigue, No Malaise ENT/Mouth : No Hearing loss, No Ear Pain, No Nasal Congestion, No Sinus Pain, No Hoarseness, No sore throat, No Rhinorrhea, No Swallowing Difficulty Eyes: No Eye Pain, No Swelling, No Redness, No Foreign Body, No Discharge, No Vision Changes Cardiovascular : Chest pressure earlier today that self resolved, No Chest Pain, No SOB, No Dyspnea on Exertion, No Orthopnea, No Edema, No Palpitations Respiratory : No Cough, No Sputum, No Wheezing, No Smoke Exposure, No Dyspnea Gastrointestinal : No Nausea, No Vomiting, No Diarrhea, No Constipation, No abdominal Pain, No Hematochezia, No Melena Genitourinary : no irregular bleeding, No Dysuria, No Urinary Frequency, No Hematuria, No Urinary Incontinence, No Urgency, No Flank Pain, No Urinary Flow Changes, No Hesitancy Musculoskeletal : No joint pain, No Myalgias, No Joint Swelling Skin : No Skin Lesions, No rash Neuro : No Weakness, No Numbness, No Paresthesias, No Loss of Consciousness, complaining of feeling unsteady when trying to get up and walk, complaining of headache Psych : No Anxiety/Panic, No Depression, No SI/HI/AH/VH, No Social Issues, Heme/Lymph: No Bruising, No Bleeding,No Lymphadenopathy Endocrine : No Polyuria, No Polydipsia, No Temperature Intolerance [facility], [facility] Past Medical History Medical History Diabetes Social History Social History Alcohol intake: never Smoked in Last 30 Days: No Use of substances other than those prescribed or required for medical reasons: No Advance Directives: Yes Advance Directives on File: Yes Advance Directives Date on File: 12/13/22 Patient : No Physical Exam ED Vital Signs: Vital Signs - 24 hr 02/16/24 13:26 02/16/24 17:03 02/16/24 19:12 Temperature 96.8 F Pulse Rate 86 73 73 Respiratory Rate 16 16 Blood Pressure 115/64 136/61 128/63 Pulse Oximetry 95 96 Oxygen Delivery Method Room Air Room Air 02/16/24 19:12 02/16/24 19:13 02/16/24 19:13 Temperature 97.9 F Pulse Rate 72 72 78 Respiratory Rate 20 Blood Pressure 129/62 129/62 141/65 H Pulse Oximetry 98 Oxygen Delivery Method Room Air BMI result Body Mass Index 31.3 Const Other: Appearance: Alert. Oriented X3. No acute distress. Eyes: Pupils equal, round and reactive to light. ENT: Pharynx normal. Neck: Normal inspection. Neck supple. No lymph nodes noted. No crepitus CVS: Normal heart rate and rhythm. Pulses normal. Normal S1 and S2 Respiratory: No respiratory distress. Breath sounds normal. No Wheezing. No rales Abdomen: Soft and nontender. No rigidity. No distention. Skin: Skin warm and dry. Normal skin color. Normal skin turgor. Extremities: No lower extremity edema. No Lacerations. No Rash Neuro: Oriented X 3. No motor deficit. No sensory deficit. Moving all extremities. No slurred speech. CN 2 through 12 grossly intact Psych: calm, cooperative, normal affect Course Course Course Narrative: RME performed by Radha Forrester PA-C. Patient is a 58 year old assigned female at presenting to the emergency department with concerns of high blood pressure. Patient states her blood pressure has been higher lately and she has been having dizziness. Detailed physical exam and review of systems are deferred to the home therapy clinician. EKG, labs, imaging, and swabs ordered. Patient placed back in the waiting room pending room availability and results. Medications Administered Discontinued Medications Generic Name Dose Route Start Last Admin Trade Name Chaparro PRN Reason Stop Dose Admin Diphenhydramine HCl 25 mg 02/16/24 18:02 02/16/24 19:09 Diphenhydramine Hcl 12.5 Mg/5 Ml Liquid PO 02/16/24 18:03 25 mg ONCE ONE Administration Ketorolac Tromethamine 60 mg 02/16/24 18:01 02/16/24 19:09 Ketorolac Tromethamine 60 Mg/2 Ml Vial IM 02/16/24 18:02 60 mg ONCE ONE Administration Meclizine HCl 50 mg 02/16/24 18:01 02/16/24 19:09 Meclizine Hcl 25 Mg Tablet PO 02/16/24 18:02 50 mg ONCE ONE Administration Medical Decision Making Medical Decision Making MDM Narrative: -my interpretation of EKG, normal sinus rhythm, heart rate 85, no ST segment depression or elevation, nonspecific T-wave inversion in lead 3 and AVF without reciprocal changes, previously seen on EKGs from 2022. QTC 418 -my interpretation of labs, normal hematology, normal chemistry, chronically mildly elevated LFTs without any abdominal pain, troponin negative -my interpretation head CT: No obvious intracranial abnormalities -orthostatic vitals negative. Patient was given IM ketorolac, p.o. diphenhydramine and meclizine. -after the medication, patient states that she feels much better, ready to be discharged home. Patient states that she is no longer foggy, not dizzy, patient was ambulated in the emergency room with normal steady gait. Patient feels comfortable being discharged home -patient's blood pressure 141/65, heart rate 78, oxygen saturation 98% on room air. Differential Diagnosis Differential Diagnoses: The differential diagnosis associated with the presentation includes (Hypertension, hypertensive urgency , intracranial bleed, vertigo) Admission/Observation Consideration of admission/observation: Escalation of care including admission/observation considered (Given patient's vitals and symptoms, observation was considered) Lab Data [facility] Lab Attestation statement: I reviewed the patient's lab results. 02/16/24 14:20 02/16/24 14:20 Labs: Lab Results 02/16/24 Range/Units 14:20 WBC 6.2 (4.8-10.8) X10*3/uL RBC 4.25 (4.20-5.50) X10*6/uL Hgb 12.9 (12.0-16.0) g/dl Hct 38.1 (37.0-47.0) % MCV 89.6 (80.0-98.0) fL MCH 30.4 (27.0-33.0) pg MCHC 33.9 (31.0-35.0) g/dl RDW 13.4 (11.0-16.0) % Plt Count 152 L (160-400) X10*3/uL MPV 11.4 (9.4-12.3) fL Immature Gran % (Auto) 0.2 (0.0-0.4) % Neut % (Auto) 68.1 (45-73) % Lymph % (Auto) 24.3 (20-40) % Lake % (Auto) 5.5 (2-11) % Eos % (Auto) 1.6 (0-4) % Baso % (Auto) 0.3 (0-2) % Lymph # (Auto) 1.5 (1.2-4.9) X10*3/uL Lake # (Auto) 0.3 (0.1-1.2) X10*3/uL Eos # (Auto) 0.1 (0.0-0.4) X10*3/uL Baso # (Auto) 0.0 (0.0-0.2) X10*3/uL Abs Immat Gran (auto) 0.01 (0.00-0.03) X10*3/uL Absolute Neuts (auto) 4.2 (2.0-8.3) x10*3/uL Absolute Nucleated RBC 0.000 (0.0-0.012) X10*3/uL Nucleated RBC % (auto) 0.0 (0.0-0.2) /100WBC Sodium 137 (135-145) mmol/L Potassium 3.9 (3.3-5.1) mmol/L Chloride 104 (96-108) mmol/L Carbon Dioxide 23 (22-29) mmol/L Anion Gap 14 (12-20) BUN 12 (9-16) mg/dL Creatinine 0.83 (0.5-1.4) mg/dL Estim Creat Clear Calc 70.4 Estimated GFR > 60 Random Glucose 200 H (60-115) mg/dL Calcium 9.6 (8.4-10.2) mg/dL Magnesium 1.8 (1.6-2.6) mg/dL Total Bilirubin 0.6 (0.0-1.0) mg/dL AST 83 H (5-31) U/L ALT 89 H (0-31) U/L Alkaline Phosphatase 238 H (39-117) U/L Troponin I High Sens < 2.7 (<3.5-17.0) ng/L Total Protein 7.3 (6.5-8.0) g/dL Albumin 4.0 (3.5-5.0) g/dL Urine Color Yellow Urine Appearance Cloudy Urine pH 5.5 (5.0-9.0) Ur Specific [place] 1.020 (1.005-1.025) Urine Protein Negative (Neg-Trace) mg/dL Urine Glucose (UA) Negative (Negative) mg/dL Urine Ketones Negative (Negative) mg/dL Urine Blood Negative (Negative) Urine Nitrite Negative (Negative) Ur Leukocyte Esterase Small (1+) H (Negative) Urine RBC 0-2 (0-2) /HPF Urine WBC 6-10 H (0-5) /HPF Ur Squamous Epith Cells >20 (0-2) /HPF Urine Bacteria 1+ (None Seen) Hyaline Casts 0-2 (0-2) /LPF Influenza Type A (PCR) NEGATIVE (Negative) Influenza Type B (PCR) NEGATIVE (Negative) RSV RNA Qual (PCR) NEGATIVE (Negative) SARS-CoV-2 RNA (RT-PCR) NEGATIVE (Negative) Independent Interpretation I performed an independent interpretation of an: CT Scan Radiology Impression Discussion of test interpretation with radiology: I have reviewed the radiologist's reading. Radiologist Impression: There is no evidence of acute intracranial hemorrhage or territorial infarction. No abnormal mass effect or midline shift is seen. Farrar to white matter differentiation is well preserved. No extra-axial fluid collections are identified. Incidental small pars intermedia cyst visible. Mild to moderate generalized brain parenchymal volume loss is evident with commensurate ex vacuo prominence of the ventricles. The osseous structures and soft tissues are normal. The mastoid air cells and visualized portions of the paranasal sinuses are well aerated. CT/CT head/brain wo IV con IMPRESSION: No acute intracranial hemorrhage or territorial infarction. [id number] generalized brain parenchymal volume loss. Critical Care Time Critical Care Time Critical Care Time: Yes Total Critical Care Time: 45 Attestation: I have personally provided critical care time. Time includes review of lab data, radiology results, discussion with consultants, and monitoring for potential decompensation. Intervention performed as documented. Discharge Plan Discharge Clinical Impression: Headache, Dizziness Patient Disposition: Home, Self-Care Instructions: Acute Headache (ED), Dizziness (ED) Additional Instructions: Please follow-up with your primary care physician tomorrow. If you have any worsening or new symptoms, please return to the emergency room or call 911 Prescriptions: New meclizine 25 mg tablet 25 mg PO BID PRN (Reason: dizziness) Qty: 14 0RF No Action cyclobenzaprine 10 mg tablet 10 mg PO Q8H Qty: 20 0RF tramadol 50 mg tablet 50 mg PO Q6H PRN (Reason: pain) Qty: 20 0RF gabapentin 300 mg capsule 300 mg PO BEDTIME Qty: 30 0RF tramadol 50 mg tablet 50 mg PO Q6H PRN (Reason: pain) Qty: 20 0RF gabapentin 300 mg capsule 300 mg PO BID Qty: 60 2RF albuterol sulfate [ProAir HFA] 90 mcg/actuation HFA aerosol inhaler 2 puff inhalation Q4-6H PRN (Reason: shortness of breath or wheezing) Qty: 8.5 0RF albuterol sulfate 2.5 mg /3 mL (0.083 %) solution for nebulization 2.5 mg inhalation Q4-6H PRN (Reason: shortness of breath or wheezing) Qty: 90 0RF hydromorphone [Dilaudid] 2 mg tablet 2 mg PO Q8H PRN (Reason: pain) Qty: 14 0RF Rx Instructions: Partial Fill upon patient request. doxycycline hyclate 100 mg capsule 100 mg PO BID 10 Days Qty: 20 0RF cephalexin 500 mg tablet 500 mg PO Q6H 10 Days Qty: 40 0RF lidocaine [Lidoderm] 5 % adhesive patch,medicated 1 patch topical DAILY Qty: 15 0RF Rx Instructions: leave on most painful area for up to 12 hrs hydrocortisone [Anti-Itch (HC)] 1 % cream 1 appl topical BID PRN (Reason: rash) Qty: 28.35 0RF diphenhydramine HCl [Benadryl] 25 mg capsule 25 mg PO TID PRN (Reason: itching) Qty: 14 0RF cetirizine [Zyrtec] 10 mg tablet 10 mg PO DAILY Qty: 10 0RF prednisone 20 mg tablet 40 mg PO DAILY 5 Days Qty: 10 0RF diclofenac sodium 1 % gel 2 g topical QID Qty: 100 0RF Rx Instructions: apply to left foot Print Language: Norwegian
[2024-02-16 14:25] LABS: MANUAL DIFF FLAG NO
[2024-02-16 14:27] LABS: Appearance Urine Cloudy; Color Urine Yellow; Glucose Urine UA Negative (Negative); Leukocyte Esterase Urine Small (1+) (Negative); Nitrite Urine Negative (Negative); PH 5.5 (5.0-9.0); UMIC TRIGGER UACC YES; Urine Blood Negative (Negative); Urine Ketones Negative (Negative); Urine Protein Negative (Neg-Trace)
[2024-02-16 14:29] LABS: Bacteria Urine 1+ (None Seen); Hyaline Casts Urine 0-2 /LPF (0-2); RBC Urine 0-2 /HPF (0-2); Squamous Epithelial Cell Urine >20 /HPF (0-2); UACC Culture Trigger YES
[2024-02-16 14:32] LABS: Basophils Percent Auto 0.3 % (0-2); Eosinophils Absolute Auto 0.1 X10*3/uL (0.0-0.4); Eosinophils Percent Auto 1.6 % (0-4); Hematocrit 38.1 % (37.0-47.0); Hemoglobin 12.9 g/dl (12.0-16.0); Imm Gran Abs Auto 0.01 X10*3/uL (0.00-0.03); Imm Gran Pct Auto 0.2 % (0.0-0.4); Lymphocytes Absolute Auto 1.5 X10*3/uL (1.2-4.9); Lymphocytes Percent Auto 24.3 % (20-40); Mean Corpuscular HGB Conc 33.9 g/dl (31.0-35.0); Mean Corpuscular Hemoglobin 30.4 pg (27.0-33.0); Mean Corpuscular Volume 89.6 fL (80.0-98.0); Mean Platelet Volume 11.4 fL (9.4-12.3); Monocytes Absolute Auto 0.3 X10*3/uL (0.1-1.2); Monocytes Percent Auto 5.5 % (2-11); Neutrophils Absolute Auto 4.2 x10*3/uL (2.0-8.3); Neutrophils Percent Auto 68.1 % (45-73); Platelet Count 152 X10*3/uL (160-400); Red Blood Count 4.25 X10*6/uL (4.20-5.50); Red Cell Distribution Width 13.4 % (11.0-16.0); White Blood Count 6.2 X10*3/uL (4.8-10.8)
[2024-02-16 14:40] LABS: Alanine Aminotransferase 89 U/L (0-31); Alkaline Phosphatase 238 U/L (39-117); Anion Gap 14 (12-20); Aspartate Amino Transferase 83 U/L (5-31); Bilirubin Total 0.6 mg/dL (0.0-1.0); Blood Urea Nitrogen 12 mg/dL (9-16); Calcium 9.6 mg/dL (8.4-10.2); Carbon Dioxide 23 mmol/L (22-29); Chloride 104 mmol/L (96-108); Creatinine Clr Calc Pharmacy 70.4; Estimated Glomerular Filt Rate > 60; Glucose Random 200 mg/dL (60-115); Magnesium 1.8 mg/dL (1.6-2.6); Potassium 3.9 mmol/L (3.3-5.1); Sodium 137 mmol/L (135-145); Total Protein 7.3 g/dL (6.5-8.0)
[2024-02-16 14:48] LABS: Troponin-I High Sensitivity < 2.7 ng/L (<3.5-17.0)
[2024-02-16 15:04] LABS: Influenza A PCR NEGATIVE (Negative); Influenza B PCR NEGATIVE (Negative); Resp Syncy Virus RNA Qual PCR NEGATIVE (Negative); SARS COV2 PCR INHOUSE NEGATIVE (Negative)
[2024-02-16 17:03] VITALS: BP 136/61; PULSE 73; RESP 16; O2SAT 96
--- NOTE | 2024-02-16 17:16 | PC.NURSE ---
Pt comes to ED today with c/o chest pain and severe GRANADOS 10/10. Reports she is diabetic and thought her symptoms were from a low BS, however her BS was stable. States she used an at home BP cuff and received a high reading in the 200's and was concerned therefore came here for eval. VSS, A&Ox3, and afebrile at this time. Pts main complaint is her severe GRANADOS and nausea.
[2024-02-16] MEDS: diphenhydrAMINE HCl 12.5 MG/5 ML LIQUID 25 MG PO (19:09)
[2024-02-16] MEDS: Ketorolac Tromethamine 60 MG/2 ML VIAL IM (19:09)
[2024-02-16] MEDS: Meclizine HCl 25 MG TABLET 50 MG PO (19:09)
[2024-02-16 19:12] VITALS: BP 128/63; BP 129/62; PULSE 72; PULSE 73
[2024-02-16 19:13] VITALS: BP 129/62; BP 141/65; PULSE 72; PULSE 78; RESP 20; TEMP 36.6; O2SAT 98
--- NOTE | 2024-02-16 19:14 | MHC.EDTECH ---
This tech took over care of patient at 1900, ortho static vitals completed per order, patient is resting comfortably,call floyd in reach
--- NOTE | 2024-02-16 19:46 | MHC.EDTECH ---
Ambulated patient per providers request,patient tolerated well.
[2024-02-16 20:11] VITALS: BP 129/62; PULSE 72; RESP 20; TEMP 36.6; O2SAT 98
== END 2024-02-16 20:12 | disposition home or self-care (01) ==
PROVIDERS: Physician Assistant Medical; Emergency Provider Emergency Medicine; PCP Student in an Organized Health Care Education/Training Program
DX: R51.9 Headache, unspecified (principal); R42 Dizziness and giddiness; Z03.818 Encounter for observation for suspected exposure to other biological agents ruled out; E11.9 Type 2 diabetes mellitus without complications; Z79.899 Other long term (current) drug therapy
CPT/HCPCS: 0241U; 70450; 71046; 80053; 81001; 83735; 84484; 85025; 87086; 93005; 96372; 99284; 99285; J1885

== ENCOUNTER 2025-01-06 18:20 | Emergency (ER) | payer OTHER, SELFPAY ==
--- OUTSIDE RECORDS SUMMARY | 2025-01-01 23:59 | XMS_ITS | Continuity of Care Document ---
Author Organization [facility] Address [address] [place] [id number]- Care Team Providers Care Strategic Debriefing Officer Name Role Phone Janine Feldman MD Primary Care Physician En[place] [facility] [place]): 12/02/24 - 01/01/25 [facility]/[address] [address]- Encounter Type: Triage Allergies, Adverse Reactions, Alerts Substance Criticality Severity Reaction Reaction Severity Status morphine Dizziness/Vertigo Ac tive penicillins nausea Active HYDROcodone Nausea Active traMADol Nausea and vomiting Active penicillin nausea Active Immunizations Given and Recorded Vaccine Date Status Refusal Reason influenza virus vaccine, inactivated 02/24/24 Paul rded influenza virus vaccine, inactivated 05/20/22 Paul rded influenza virus vaccine, inactivated 03/17/21 Paul rded influenza virus vaccine, inactivated 02/25/20 Paul rded influenza virus vaccine, inactivated 03/01/19 Paul rded influenza virus vaccine, inactivated 03/07/18 Paul rded influenza virus vaccine, inactivated 03/03/17 Paul rded influenza virus vaccine, inactivated 02/09/14 Paul rded zoster vaccine, inactivated 11/14/22 Given zoster vaccine, inactivated 02/06/19 Recorded pneumococcal 20-valent conjugate vaccine 11/14/22 Given [id number] 12y+ bivalent booster vax 05/20/22 Recorded hepatitis B adult vaccine 03/29/21 Recorded SARS-CoV-2 (COVID-19) mRNA BNT-162b2 vac 03/14/21 Recorded SARS-CoV-2 (COVID-19) mRNA BNT-162b2 vac 08/09/20 Recorded SARS-CoV-2 (COVID-19) mRNA BNT-162b2 vac 07/19/20 Recorded pneumococcal 23-valent vaccine 08/14/18 Recorded tetanus/diphtheria/pertussis, acel(Tdap) 08/14/18 Recorded Medications atorvastatin 40 mg oral tablet 1 tablet = 40 mg, By Mouth, Daily, # 90 tablet, 1 Refills, Maintenance, 12/02/24 2:12:00 PM EDT, Tablet, [facility], Partial fill upon patient request if the prescription is for a schedule II opioid drug., 156, cm, 11/13/24 13:48:00 EDT, Height, 71.4, kg, 11/13/24 13:48:00 EDT, Dry Weight Start Date: 12/02/24 Stop Date: 05/31/25 Status: Ordered Quantity: 90.0 Unit: tablet Repeat number: 2 [place] Saline Mist 0.65% nasal spray 2 sprays, Nares, Both, 4 times a day, # 1 each, 0 Refills, Maintenance, 11/12/24 2:21:00 PM EDT, [facility], Partial fill upon patient request if the prescription is for a schedule II opioid drug., 2 sprays Nares, Both 4 times a day, 156, cm, 10/23/24 14:29:00 EDT, Height, 73.9, kg, 10/23/24 13:51:00 EDT, Dry Weight Start Date: 11/12/24 Status: Ordered Quantity: 1.0 Unit: each Repeat number: 1 Indications: Acute upper respiratory infection, unspecified; diclofenac 1% topical gel See Instructions, Topically 4 times a day, # 50 Gm, 0 Refills, Maintenance, 11/12/24 2:21:00 PM EDT, [facility], Partial fill upon patient request if the prescription is for a schedule II opioid drug., 156, cm, 10/23/24 14:29:00 EDT, Height, 73.9, kg, 10/23/24 13:51:00 EDT, Dry Weight Start Date: 11/12/24 Status: Ordered Quantity: 50.0 Unit: g Repeat number: 1 fluticasone 50 mcg/inh nasal spray 1 sprays = 50 mcg, Nares, Both, 2 times a day, # 16 Gm, 0 Refills, Maintenance, 11/12/24 2:21:00 PM EDT, [place], [facility], Partial fill upon patient request if the prescription is for a schedule II opioid drug., 1 sprays Nares, Both 2 times a day, 156, cm, 10/23/24 14:29:00 EDT, Height, 73.9, kg, 10/23/24 13:51:00 EDT, Dry Weight Start Date: 11/12/24 Status: Ordered Quantity: 16.0 Unit: g Repeat number: 1 Indications: Acute upper respiratory infection, unspecified; Freestyle Lancets See Instructions, # 100 each, Refills 11, Tot. Refills 11, Maintenance, Use as directed to check blood sugars four times daily Dx: E11.9, 07/11/23 5:59:00 PM EST, Supply, 156, cm, 06/26/23 11:17:00 EST, Height, 67.27, kg, 04/19/23 13:09:00 EST, Dry Weight Start Date: 07/11/23 Status: Ordered Quantity: 100.0 Unit: each Repeat number: 12 Freestyle lancing device Freestyle lancing device, See Instructions, # 1 each, Refills 1, Tot. Refills 1, Maintenance, Use as directed to check blood sugars four times daily Dx: E11.9, 07/11/23 6:00:00 PM EST, Supply, 156, cm, 06/26/23 11:17:00 EST, Height, 67.27, kg, 04/19/23 13:09:00 EST, Dry Weight Start Date: 07/11/23 Status: Ordered Quantity: 1.0 Unit: each Repeat number: 2 FreeStyle Madelin 2 Monitor See Instructions, # 1 each, Maintenance, Check 4x/day before each meal (breakfast, lunch, dinner) and at bedtime, 10/23/24 2:18:00 PM EDT, Supply, 156, cm, 10/23/24 13:51:00 EDT, Height, 73.9, kg, 10/23/24 13:51:00 EDT, Dry Weight Start Date: 10/23/24 Status: Ordered Quantity: 1.0 Unit: each Repeat number: 1 FreeStyle Madelin 2 Sensors See Instructions, # 2 each, Refills 11, Tot. Refills 11, Maintenance, use as directed for Type 2 Diabetes Mellitus. CHECK AT LEAST 5 TIMES DAILY, 10/23/24 2:18:00 PM EDT, Supply, 156, cm, 10/23/24 13:51:00 EDT, Height, 73.9, kg, 10/23/24 13:51:00 EDT, Dry Weight Start Date: 10/23/24 Status: Ordered Quantity: 2.0 Unit: each Repeat number: 12 Freestyle Lite Lancets See Instructions, # 100 each, Refills 11, Tot. Refills 11, Maintenance, Insulin dependent DM Checking TID, 12/28/23 3:00:00 PM EDT, Supply, 156, cm, 12/28/23 14:40:00 EDT, Height, 77.36, kg, 10/22/23 14:07:00 EDT, Dry Weight Start Date: 12/28/23 Status: Ordered Quantity: 100.0 Unit: each Repeat number: 12 Indications: Type 2 diabetes mellitus without complications; Freestyle Lite Monitor See Instructions, # 1 each, Maintenance, Insulin dependent DM Checking TID, 12/28/23 3:00:00 PM EDT,Supply, 156, cm, 12/28/23 14:40:00 EDT, Height, 77.36, kg, 10/22/23 14:07:00 EDT, Dry Weight Start Date: 12/28/23 Status: Ordered Quantity: 1.0 Unit: each Repeat number: 1 Indications: Type 2 diabetes mellitus without complications; Freestyle Lite Test Strips See Instructions, # 100 each, Refills 11, Tot. Refills 11, Maintenance, Insulin dependent DM Checking TID, 12/28/23 3:00:00 PM EDT, Supply, 156, cm, 12/28/23 14:40:00 EDT, Height, 77.36, kg, 10/22/23 14:07:00 EDT, Dry Weight Start Date: 12/28/23 Status: Ordered Quantity: 100.0 Unit: each Repeat number: 12 Indications: Type 2 diabetes mellitus without complications; gabapentin 300 mg oral capsule 300 mg, 1, capsule, By Mouth, 2 times a day, # 180 capsule, Refills 3, Tot. Refills 3, Maintenance,11/12/24 2:21:00 PM EDT, Route to Pharmacy Electronically, [facility], Partial fill upon patient request if the prescription is for a schedule II opioid drug., 156, cm, 10/23/24 14:29:00 EDT, Height, 73.9, kg, 10/23/24 13:51:00 EDT, Dry Weight Start Date: 11/12/24 Stop Date: 11/07/25 Status: Ordered Quantity: 180.0 Unit: capsule Repeat number: 4 hydrocortisone/neomycin/polymyxin B otic 1%-0.35%-81759 u/ml solution 4 drops, Ear, Right, 4 times a day, # 10 mL, 1 Refills, Maintenance, 10/22/24 3:59:00 PM EDT, Solution, [facility]/pharmacy #[id number], Partial fill upon patient request if the prescription is for a schedule II opioid drug., 4 drops Ear, Right 4 times a day, 156, cm, 10/06/24 15:27:00 EDT, Height, 74.3, kg, 10/06/24 15:27:00 EDT, Dry Weight Start Date: 10/22/24 Status: Ordered Quantity: 10.0 Unit: mL Repeat number: 2 Lantus Solostar Pen 100 units/mL subcutaneous solution = 30 units, Subcutaneous Injection, Daily at bedtime, # 15 mL, 2 Refills, Maintenance, 12/02/24 2:12:00 PM EDT, Injection, [facility], Partial fill upon patient request if the prescription is for a schedule II opioid drug., 156, cm, 11/13/24 13:48:00 EDT, Height, 71.4, kg, 11/13/24 13:48:00 EDT, Dry Weight Start Date: 12/02/24 Stop Date: 03/02/25 Status: Ordered Quantity: 15.0 Unit: mL Repeat number: 3 lidocaine 5% topical film 1 patch, Topically, Daily, INSTR:REMOVE PATCHES AFTER 12 HOURS, # 30 patch, 1 Refills, Maintenance,11/12/24 2:21:00 PM EDT, [facility], 30, 1 patch Topically Daily,Instr:INSTR:REMOVE PATCHES AFTER 12 HOURS, 156, cm, 10/23/24 14:29:00 EDT, Height, 73.9, kg, 10/23/24 13:51:00 EDT, Dry Weight Start Date: 11/12/24 Status: Ordered Quantity: 30.0 Unit: patch Repeat number: 2 meloxicam 15 mg oral tablet 1 tablet, By Mouth, Daily, INSTR:WITH FOOD FOR PAIN AND INFLAMMATION, # 30 tablet, 0 Refills, Maintenance, 11/12/24 2:21:00 PM EDT, [facility], 156, cm, 10/23/24 14:29:00 EDT, Height, 73.9, kg, 10/23/24 13:51:00 EDT, Dry Weight Start Date: 11/12/24 Status: Ordered Quantity: 30.0 Unit: tablet Repeat number: 1 metFORMIN 500 mg oral tablet 1 tablet = 500 mg, By Mouth, 2 times a day, # 180 tablet, 1 Refills, Maintenance, 11/12/24 2:21:00 PMEDT, [facility], Partial fill upon patient request if the prescription is for aschedule II opioid drug., 156, cm, 10/23/24 14:29:00 EDT, Height, 73.9, kg, 10/23/24 13:51:00 EDT, Dry Weight Start Date: 11/12/24 Stop Date: 05/11/25 Status: Ordered Quantity: 180.0 Unit: tablet Repeat number: 2 montelukast 10 mg oral tablet 10 mg, 1, tablet, By Mouth, Daily, # 90 tablet, Refills 0, Tot. Refills 0, Maintenance, 12/02/24 2:13:00 PM EDT, Route to Pharmacy Electronically, [facility], Partial fill upon patient request if the prescription is for a schedule II opioid drug., 156, cm, 11/13/24 13:48:00 EDT, Height, 71.4, kg, 11/13/24 13:48:00 EDT, Dry Weight Start Date: 12/02/24 Stop Date: 03/02/25 Status: Ordered Quantity: 90.0 Unit: tablet Repeat number: 1 omeprazole 20 mg oral delayed release tablet 1 tablet = 20 mg, By Mouth, Daily, # 30 tablet, 0 Refills, Maintenance, 11/12/24 2:21:00 PM EDT, EC Tablet, [facility], Partial fill upon patient request if the prescription is for a schedule II opioid drug., 156, cm, 10/23/24 14:29:00 EDT, Height, 73.9, kg, 10/23/24 13:51:00 EDT,Dry Weight Start Date: 11/12/24 Status: Ordered Quantity: 30.0 Unit: tablet Repeat number: 1 Ozempic 8 mg/3 mL (2 mg dose) subcutaneous solution = 2 mg, Subcutaneous Injection, Every week, in the abdomen, thigh, or upper arm dose increased, # 4each, 5 Refills, Maintenance, 11/12/24 2:21:00 PM EDT, Solution, [facility], Partial fill upon patient request if the prescription is for a schedule II opioid drug., 156, cm, 10/23/24 14:29:00 EDT, Height, 73.9, kg, 10/23/24 13:51:00 EDT, Dry Weight Start Date: 11/12/24 Stop Date: 04/29/25 Status: Ordered Quantity: 4.0 Unit: each Repeat number: 6 ProAir HFA 90 mcg/inh inhalation aerosol 2 puffs, Inhalation, 4 times a day, PRN as needed for wheezing, # 18 Gm, 0 Refills, Maintenance, 11/12/24 2:21:00 PM EDT, Aerosol, [facility], Partial fill upon patient request if the prescription is for a schedule II opioid drug., 2 puffs Inhalation 4 times a day,PRN:as needed for wheezing, 156, cm, 10/23/24 14:29:00 EDT, Height, 73.9, kg, 10/23/24 13:51:00 EDT, Dry Weight Start Date: 11/12/24 Status: Ordered Quantity: 18.0 Unit: g Repeat number: 1 Indications: Cough, unspecified; Acute upper respiratory infection, unspecified; Tegaderm adhesive for Madelin sensors Tegaderm adhesive for Madelin sensors, See Instructions, # 8 each, Refills 5, Tot. Refills 5, Maintenance, For use with Madelin 2 sensors every 14 days, 11/13/24 1:55:00 PM EDT, Supply, 156, cm, 11/13/24 13:48:00 EDT, Height, 71.4, kg, 11/13/24 13:48:00 EDT, Dry Weight Start Date: 11/13/24 Status: Ordered Quantity: 8.0 Unit: each Repeat number: 6 tiZANidine 4 mg oral tablet 1, tablet, By Mouth, 3 times a day, INSTR:FOR MUSCLE PAIN NOT TO EXCEED 3 DOSES/DAY, # 90 tablet, Refills 0, Maintenance, 12/16/24 4:24:00 PM EDT, Route to Pharmacy Electronically, [id number], 156, cm, 12/10/24 13:39:00 EDT, Height, 71.4, kg, 11/13/24 13:48:00 EDT, Dry Weight Start Date: 12/16/24 Status: Ordered Quantity: 90.0 Unit: tablet Repeat number: 1 Problem List Condition Confirmation Course Effective Dates Status H ealth Status Informant Allergic rhinitis Confirmed Active Diabetes mellitus Confirmed 11/02/16 Active Dyspnea on exertion Confirmed Active Fibromyalgia Confirmed Active Gastroesophageal reflux disease Confirmed Active Generalized anxiety disorder Confirmed Active Hyperlipidemia Confirmed Active Nonalcoholic steatohepatitis (WRIGHT)- advanced fibrosis vs cirrhosis on elastography Confirmed Active Splenomegaly Confirmed Active Tubular adenoma of colon 1 Confirmed 02/02/23 Active Type 2 diabetes mellitus Confirmed Active Type 2 diabetes mellitus without complication Confirmed Active Weight loss Confirmed Active 1repeat screening colonoscopy in 2029 Social History Social History Type Response Smoking Status Never (less than 100 in lifetime) entered on: 10/08/23 Sex Sex Representation Female (finding) Patient Care team information Care Team Personnel Name: Janine Feldman MD Position: [facility] Physician - Primary Care Member Role: PCP Address: [address] [place] [address] Telecom: Care Team Related Persons Name: TIFFANY GILLIAM Name: NAT GILLIAM Insurance Providers Guarantor name: MONICA [employer] Plan Information #: 1 Payer: [facility] Payer Identifier: [employer] Member Number: [id number] Group Number: [id number] Subscriber Identifier: [id number] Relationship to Subscriber: self Coverage Type: NA Coverage Verification Date: Telecom: Address:
--- NOTE | ~2025-01-06 | CT_ITS ---
CLINICAL HISTORY: headache, dizziness CT Head Without Contrast: Comparison: 02/16/2024 Findings: Cortical sulci are symmetric Basal ganglia are unremarkable No shift in midline structures No intraparenchymal bleeding or abnormal extra axial blood fluid collections Normal pituitary size Clear paranasal sinuses Unremarkable orbital structures No depressed fractures Impression: Unremarkable CT of the head. This document has been electronically signed by: Julius Agee MD on 01/06/2025 19:58:15
[2025-01-06 19:04] VITALS: BP 113/66; PULSE 89; RESP 18; TEMP 36.7; O2SAT 97
--- NOTE | 2025-01-06 19:04 | ED_ITS ---
HPI - Headache General Chief Complaint: Dizziness Stated Complaint: Severe GRANADOS, sent from Time Seen by Provider: 01/06/25 21:50 Source: patient Mode of arrival: ambulatory Limitations: no limitations History of Present Illness ED Provider: HPI Narrative: Patient has remote history of migraine headache comes here has been having headache for last 2 days mostly localized to the right side also been feeling dizzy even moving her head makes her feel spinning around associated with nausea and light sensitivity patient is seen at urgent care center and sent the patient is here for further evaluation patient usually headaches gets better with Tylenol Related Data Previous Rx's ?Medication ?Instructions ?Recorded cephalexin 500 mg tablet 500 mg PO Q6H 10 days #40 ta bs 04/01/22 doxycycline hyclate 100 mg capsule 100 mg PO BID 10 da ys #20 caps 04/01/22 lidocaine 5 % topical patch 1 patch topical DAILY #15 ea 04/29/22 (Lidoderm) cyclobenzaprine 10 mg tablet 10 mg PO Q8H #20 tabs gabapentin 300 mg capsule 300 mg PO BEDTIME #30 caps 1 08/03/21 tramadol 50 mg tablet 50 mg PO Q6H PRN pain #20 ta bs 06/02/22 albuterol sulfate 2.5 mg/3 mL 2.5 mg (3 mL) inhalation Q4-6H PRN 06/26/22 (0.083 %) solution for nebulization shortness of breat h or wheezing #90 mL albuterol sulfate 90 mcg/actuation 2 puff inhalation Q 4-6H PRN 06/26/22 aerosol inhaler (ProAir HFA) shortness of breath or wh eezing #8.5 grams gabapentin 300 mg capsule 300 mg PO BID #60 caps 06/26 tramadol 50 mg tablet 50 mg PO Q6H PRN pain #20 ta bs 06/26/22 hydromorphone 2 mg tablet 2 mg PO Q8H PRN pain #14 tab s 07/23/22 (Dilaudid) cetirizine 10 mg tablet (Zyrtec) 10 mg PO DAILY #10 ta bs 04/26/23 diphenhydramine HCl 25 mg capsule 25 mg PO TID PRN itc maxine #14 caps 04/26/23 (Benadryl) hydrocortisone 1 % topical cream 1 appl topical BID SD N rash #28.35 04/26/23 (Anti-Itch (hydrocortisone)) grams prednisone 20 mg tablet 40 mg (2 x 20 mg) PO DAILY 5 days 04/26/23 #10 tabs diclofenac sodium 1 % topical gel 2 g topical QID #100 grams 11/22/23 meclizine 25 mg tablet 25 mg PO BID PRN dizziness # 14 tabs 02/16/24 meclizine 25 mg tablet 25 mg PO TID PRN dizziness # 20 tabs 01/07/25 Allergies Allergy/AdvReac Type Severity Reaction Status Date / Time morphine Allergy Vomiting Verified 01/06/25 19:07 Penicillins Allergy Headache Verified 01/06/25 19:07 Review of Systems 2 Review of Systems: Yes all other systems are reviewed and are negative PMFSH Past Medical History Medical History Diabetes Social History Social History Alcohol intake: never Smoked in Last 30 Days: No Use of substances other than those prescribed or required for medical reasons: No Advance Directives: Yes Advance Directives on File: Yes Advance Directives Date on File: 12/13/22 Patient : No Physical Exam 2 Vital Signs: Vital Signs: Last Vital Signs Temp 97.8 F 01/07/25 00:48 Pulse 73 01/07/25 00:48 Resp 18 01/07/25 00:48 BP 137/73 01/07/25 00:48 Pulse Ox 98 01/07/25 00:48 O2 Del Method Room Air 01/07/25 00:48 BMI result Body Mass Index 30.0 Appearance: Alert. Oriented X3. Severe dizziness feeling on moving her head Eyes: PERRLA, No Nystagmus ENT: Pharynx normal. Oral Mucosa moist Neck: Normal inspection. Neck supple. CVS: Normal heart rate and rhythm. Pulses normal. Respiratory: No respiratory distress. Equal air entry bilateral, no wheezing/rales/rhonchi Abdomen: Soft and nontender. Bowel sounds are present, no mass palpable, no CVA tenderness Skin: Skin warm and dry. Normal skin color. Normal skin turgor. Extremities: No lower extremity edema. No calf tenderness Neuro: Oriented X 3. No motor deficit. No sensory deficit.No cerebellar signs , cranial nerves II-XII intact Course Course Course Narrative: This is an RME performed by Summer Viveros CNP: Additional HPI, ROS, PE not included below will be deferred to primary provider. Patient is a 59-year-old female who presents emergency department for evaluation of a severe headache to the bilateral temporal region as well as posterior and dizziness, described as feeling off balance, with onset yesterday night unrelieved with the acetaminophen. Headache is constant in nature. Denies nausea, vomiting, head injury, no neck stiffness, fevers, chills. Advised to come to emergency department to obtain CT scan of the head Plan: Serum labs, ECG, CT head, orthostatic vital signs Medications Administered Discontinued Medications Generic Name Dose Route Start Last Admin Trade Name Freq PRN Reason Stop Dose Admin Sodium Chloride 1,000 mls @ 999 mls/hr 01/06/25 22:27 01/06/25 23:15 Ns IV 01/06/25 23:27 999 mls/hr .Q1H1M ONE Administration Ketorolac Tromethamine 15 mg 01/06/25 22:27 01/06/25 23:14 Ketorolac Tromethamine 15 Mg/Ml Vial IVPUSH 01/06/25 22:28 15 mg ONCE ONE Administration Meclizine HCl 25 mg 01/06/25 22:27 01/06/25 23:14 Meclizine Hcl 25 Mg Tablet PO 01/06/25 22:28 25 mg ONCE ONE Administration Ondansetron HCl 4 mg 01/06/25 22:27 01/06/25 23:14 Ondansetron Hcl 4 Mg/2 Ml Vial IVPUSH 01/06/25 22:28 4 mg ONCE ONE Administration Medical Decision Making Medical Decision Making [facility] Narrative: Patient clinically with migraine headache with benign positional vertigo no cerebellar signs patient felt better after IV Toradol, meclizine and Zofran able to ambulate in the ED without any discomfort will discharge patient home symptoms likely from benign positional vertigo Differential Diagnosis Differential Diagnoses: The differential diagnosis associated with the presentation includes Complex migraine/benign positional vertigo/CVA/TIA Admission/Observation Consideration of admission/observation: Escalation of care including admission/observation considered Lab Data [facility] Lab Attestation statement: I reviewed the patient's lab results. 01/06/25 19:51 01/06/25 19:51 Labs: Lab Results 01/06/25 01/06/25 01/07/25 Range/Units 19:51 21:44 00:53 WBC 7.2 (4.8-10.8) X10*3/uL RBC 4.23 (4.20-5.50) X10*6/uL Hgb 13.0 (12.0-16.0) g/dl Hct 36.9 L (37.0-47.0) % MCV 87.2 (80.0-98.0) fL MCH 30.7 (27.0-33.0) pg MCHC 35.2 H (31.0-35.0) g/dl RDW 13.5 (11.0-16.0) % Plt Count 153 L (160-400) X10*3/uL MPV 10.6 (9.4-12.3) fL Immature Gran % (Auto) 0.3 (0.0-0.4) % Neut % (Auto) 64.2 (45-73) % Lymph % (Auto) 27.9 (20-40) % Mercer % (Auto) 5.4 (2-11) % Eos % (Auto) 1.8 (0-4) % Baso % (Auto) 0.4 (0-2) % Lymph # (Auto) 2.0 (1.2-4.9) X10*3/uL Mercer # (Auto) 0.4 (0.1-1.2) X10*3/uL Eos # (Auto) 0.1 (0.0-0.4) X10*3/uL Baso # (Auto) 0.0 (0.0-0.2) X10*3/uL Abs Immat Gran (auto) 0.02 (0.00-0.03) X10*3/uL Absolute Neuts (auto) 4.6 (2.0-8.3) x10*3/uL Absolute Nucleated RBC 0.000 (0.0-0.012) X10*3/uL Nucleated RBC % (auto) 0.0 (0.0-0.2) /100WBC ESR 36 H (0-20) MM/HR Sodium 139 (135-145) mmol/L Potassium 4.5 (3.3-5.1) mmol/L Chloride 106 (96-108) mmol/L Carbon Dioxide 24 (22-29) mmol/L Anion Gap 14 (12-20) BUN 12 (9-16) mg/dL Creatinine 0.61 (0.5-1.4) mg/dL Estim Creat Clear Calc 85.3 Estimated GFR > 60 POC Glucose 89 85 (60-115) mg/dL Random Glucose 91 (60-115) mg/dL Calcium 9.4 (8.4-10.2) mg/dL Magnesium 1.7 (1.6-2.6) mg/dL Total Bilirubin 0.9 (0.0-1.0) mg/dL AST 81 H (5-31) U/L ALT 77 H (0-31) U/L Alkaline Phosphatase 213 H (39-117) U/L Troponin I High Sens < 2.7 (<3.5-17.0) ng/L C-Reactive Protein 0.41 (< or = 0.50) mg/dL Total Protein 7.4 (6.5-8.0) g/dL Albumin 4.3 (3.5-5.0) g/dL Influenza Type A (PCR) NEGATIVE (Negative) Influenza Type B (PCR) NEGATIVE (Negative) RSV RNA Qual (PCR) NEGATIVE (Negative) SARS-CoV-2 RNA (RT-PCR) NEGATIVE (Negative) Independent Interpretation I performed an independent interpretation of an: CT Scan Radiology Impression Discussion of test interpretation with radiology: I have reviewed the radiologist's reading. Discharge Plan Discharge Clinical Impression: Benign paroxysmal positional vertigo Patient Disposition: Home, Self-Care Instructions: Benign Paroxysmal Positional Vertigo (ED) Additional Instructions: Take medication as prescribed for severe dizziness Care and cautions as advised Follow up with your PCP as needed Prescriptions: New meclizine 25 mg tablet 25 mg PO TID PRN (Reason: dizziness) Qty: 20 0RF No Action cyclobenzaprine 10 mg tablet 10 mg PO Q8H Qty: 20 0RF tramadol 50 mg tablet 50 mg PO Q6H PRN (Reason: pain) Qty: 20 0RF gabapentin 300 mg capsule 300 mg PO BEDTIME Qty: 30 0RF tramadol 50 mg tablet 50 mg PO Q6H PRN (Reason: pain) Qty: 20 0RF gabapentin 300 mg capsule 300 mg PO BID Qty: 60 2RF albuterol sulfate [ProAir HFA] 90 mcg/actuation HFA aerosol inhaler 2 puff inhalation Q4-6H PRN (Reason: shortness of breath or wheezing) Qty: 8.5 0RF albuterol sulfate 2.5 mg /3 mL (0.083 %) solution for nebulization 2.5 mg inhalation Q4-6H PRN (Reason: shortness of breath or wheezing) Qty: 90 0RF hydromorphone [Dilaudid] 2 mg tablet 2 mg PO Q8H PRN (Reason: pain) Qty: 14 0RF Rx Instructions: Partial Fill upon patient request. doxycycline hyclate 100 mg capsule 100 mg PO BID 10 Days Qty: 20 0RF cephalexin 500 mg tablet 500 mg PO Q6H 10 Days Qty: 40 0RF lidocaine [Lidoderm] 5 % adhesive patch,medicated 1 patch topical DAILY Qty: 15 0RF Rx Instructions: leave on most painful area for up to 12 hrs hydrocortisone [Anti-Itch (HC)] 1 % cream 1 appl topical BID PRN (Reason: rash) Qty: 28.35 0RF diphenhydramine HCl [Benadryl] 25 mg capsule 25 mg PO TID PRN (Reason: itching) Qty: 14 0RF cetirizine [Zyrtec] 10 mg tablet 10 mg PO DAILY Qty: 10 0RF prednisone 20 mg tablet 40 mg PO DAILY 5 Days Qty: 10 0RF diclofenac sodium 1 % gel 2 g topical QID Qty: 100 0RF Rx Instructions: apply to left foot meclizine 25 mg tablet 25 mg PO BID PRN (Reason: dizziness) Qty: 14 0RF Print Language: German
--- NOTE | 2025-01-06 19:06 | ECG_ITS ---
Test Reason : dizziness Blood Pressure : */* mmHG Vent. Rate : 81 BPM Atrial Rate : 81 BPM P-R Int : 142 ms QRS Dur : 72 ms QT Int : 356 ms P-R-T Axes : 23 -39 -14 degrees QTcB Int : 413 ms Normal sinus rhythm Left axis deviation Septal infarct , age undetermined Abnormal ECG When compared with ECG of 16-Feb-2024 13:01, No significant change was found Referred By: Sheila Viveros Electronically Signed By: ASHLEY GOLDSTEIN MD
[2025-01-06 19:57] LABS: MANUAL DIFF FLAG NO
[2025-01-06 19:58] LABS: Hematocrit 36.9 % (37.0-47.0); Hemoglobin 13.0 g/dl (12.0-16.0); Imm Gran Abs Auto 0.02 X10*3/uL (0.00-0.03); Imm Gran Pct Auto 0.3 % (0.0-0.4); Lymphocytes Absolute Auto 2.0 X10*3/uL (1.2-4.9); Mean Corpuscular HGB Conc 35.2 g/dl (31.0-35.0); Mean Corpuscular Hemoglobin 30.7 pg (27.0-33.0); Mean Corpuscular Volume 87.2 fL (80.0-98.0); NRBC Abs Auto 0.000 X10*3/uL (0.0-0.012); NRBC Pct Auto 0.0 /100WBC (0.0-0.2); Platelet Count 153 X10*3/uL (160-400); Red Blood Count 4.23 X10*6/uL (4.20-5.50); White Blood Count 7.2 X10*3/uL (4.8-10.8)
[2025-01-06 20:14] LABS: Alanine Aminotransferase 77 U/L (0-31); Albumin Level 4.3 g/dL (3.5-5.0); Alkaline Phosphatase 213 U/L (39-117); Anion Gap 14 (12-20); Aspartate Amino Transferase 81 U/L (5-31); Blood Urea Nitrogen 12 mg/dL (9-16); Calcium 9.4 mg/dL (8.4-10.2); Carbon Dioxide 24 mmol/L (22-29); Chloride 106 mmol/L (96-108); Creatinine Clr Calc Pharmacy 85.3; Estimated Glomerular Filt Rate > 60; Magnesium 1.7 mg/dL (1.6-2.6); Potassium 4.5 mmol/L (3.3-5.1); Sodium 139 mmol/L (135-145); Total Protein 7.4 g/dL (6.5-8.0)
[2025-01-06 20:22] LABS: Troponin-I High Sensitivity < 2.7 ng/L (<3.5-17.0)
[2025-01-06 20:37] LABS: Resp Syncy Virus RNA Qual PCR NEGATIVE (Negative); SARS COV2 PCR INHOUSE NEGATIVE (Negative)
[2025-01-06 21:48] LABS: Glucose, Whole Blood 89 mg/dL (60-115)
--- OUTSIDE RECORDS SUMMARY | 2025-01-06 21:58 | XMS_ITS | Patient Health Record ---
Author Organization Gavin Faulkner III, MD Address [address] [place] [address] Care Team Providers Care Hands Parter Name Role Phone Iesha Sanchez Primary Care Provider Unavailab Gavin Molina Unavailable [phone] Allergies Allergen (clinical drug ingredient) Drug/Non Drug Allergy documented on EMR Reaction Allergy Type Onset Date Status Penicillin Unknown Drug Allergy Active morphine Morphine Unknown Drug Allergy Active Reason For Referral No Information Medications Medication SIG (Take, Route, Frequency, Duration) Notes Start Date End Date Status BD Pen Needle Lenore 2nd Gen 32G X 4 MM USE FIVE TIMES DAILY Diagnosis Unavailable Active FreeStyle Lancets - Active Albuterol Sulfate HFA 108 (90 Base) MCG/ACT INHALE 2 PUFFS EVERY 6 HOURS NEEDED FOR WHEEZING Inhalation Active Atorvastatin Calcium 40 MG Oral Active Ipratropium-Albuterol 0.5-2.5 (3) MG/3ML USE 3 ML VIA NEBULIZER FOUR TIMES DAILY Inhalation Active hydrOXYzine HCl 25 MG TAKE 1 TABLET BY M OUTH FOUR TIMES DAILY FOR 14 DAYS NEEDED FOR ANXIETY Oral Active Gabapentin 300 MG TAKE 1 CAPSULE BY MO UTH TWICE DAILY Oral Active Meclizine HCl 12.5 MG TAKE 1 TABLET BY M OUTH THREE TIMES DAILY FOR 5 DAYS Oral Active HumaLOG KwikPen 100 UNIT/ML Subcutaneous Active Fluticasone Propionate 50 MCG/ACT SHAKE LIQUID AND USE 1 SPRAY IN EACH NOSTRIL TWICE DAILY Nasal Active Lantus SoloStar 100 UNIT/ML Subcutaneous Active metFORMIN HCl 500 MG Oral Active FreeStyle Madelin 14 Day Sensor - USE EVERY 14 DAYS Active Jardiance 25 MG TAKE 1 TABLET BY TA TH EVERY MORNING WITH PLENTY OF FLUIDS THROUGHOUT THE DAY Diagnosis Unavailable Oral Active Social History Tobacco Use: Social History Observation Description Date Details (start date - stop date) Never Smoker NA - NA Sex Assigned At : Social History Observation Description Sex Assigned At Female Tobacco Use/Smoking Question Answer Notes Patient is a nonsmoker Alcohol Screen Question Answer Notes Did you have a drink containing alcohol in the p ast year? No Points 0 Interpretation Negative Problems Problem Type SNOMED Code ICD Code Onset Dates Problem Status W/U Status Risk Notes Problem Fibromyalgia (502929022) Fibromyalgia (M79.7) Active confirmed This diagnosis is documented in the old record at [facility]. Problem Type II diabetes mellitus without complication (209035515) Diabetes (E11.9) Active confirmed Her diabetes is well controlled. Is managed by primary care. Problem Weight loss (717628214) Weight loss (R63.4) Active confirmed She reports losing about 10 pounds since June 2022. She has a poor appetite. Her sister corroborated the history of weight loss. Problem Hypertension (81404397) Hypertension (I10) Active confirmed Her blood pressure was stable today. No change in her regimen was needed. Problem 81439413 Splenomegaly (R16.1) Active confirmed I did not feel a spleen tip on today's examination, likely because of obesity. The spleen was enlarged on the recent CT scan, December 08, 2022. A PET CT scan has been ordered to assess the possibility of lymphoma. Infectious disease remains another possibility. Problem Pancytopenia (134578434) Pancytopenia (D61.818) Active confirmed The spleen is reported to be slightly enlarged. The pancytopenia may be due to hypersplenism . This will be evaluated. Problem 25948547 Penicillin allergy (Z88.0) Active confirmed Penicillin allergy. Has been entered into the record. Problem [id number] Labyrinthitis of both ears (H83.03) Active confirmed She went to the emergency room recently because of dizziness and headaches. An MRI and a CT scan of brain were both unremarkable. This is a chronic problem and current therapy was continued. Problem 05189006 Adult onset diabetes mellitus with ketoacidosis (E11.10) Active confirmed Problem Lymphadenopathy (17447377) Adenopathy (R59.9) Active confirmed She has mediastinal, axillary and upper abdominal adenopathy on the recent CT scan of the chest which was not present in June 2022. One lymph node is reported to be 2 cm in diameter. Her spleen is reported to be enlarged as well. She has been returned to her primary care physician and care team at [facility]. She will not need to come back here. She lives in [place], [place] and receives her care from [facility] healthcare system. She agreed with this today. There was an abnormality on the PET/CT scan in the colon and a colonoscopy has been arranged. Her weight is stable. She is asymptomatic. Problem [id number] Chronic daily headache (R51.9) Active confirmed She was continued on current therapy. Plan Of Treatment No Information Insurance Providers Payer Name Payer Address Payer Phone Subscriber Number Group Number Insured Name Patient Relationship to Insured Coverage Start Date Coverage End Date [address] [place] [phone] [id number] Neema Hampton Self - patient is the insured Medical (General) History Medical History History ICD Code Diabetes E11.9 Hypertension I10 Fibromyalgia M79.7 Hyperlipidemia Labyrinthitis Penicillin allergy Chronic headaches Pancytopenia Splenomegaly Adenopathy Penicillin allergy History of morphine allergy Surgical History Surgery Date(Month/Year)
[2025-01-06 23:23] VITALS: BP 137/78; PULSE 72; RESP 17; TEMP 36.4; O2SAT 98
[2025-01-07 00:48] VITALS: BP 137/73; PULSE 73; RESP 18; TEMP 36.6; O2SAT 98
[2025-01-07 00:57] LABS: Glucose, Whole Blood 85 mg/dL (60-115)
--- NOTE | 2025-01-07 01:12 | PC.NURSE ---
ambulation trial conducted, pt tolerated well. denies any dizziness, lightheadedness. Gait steady. Report GRANADOS is gone.
[2025-01-07 01:50] VITALS: BP 128/63; PULSE 74; RESP 16; TEMP 36.5; O2SAT 97
== END 2025-01-07 01:51 | disposition home or self-care (01) ==
PROVIDERS: Nurse Practitioner Family; Emergency Provider Internal Medicine; PCP Internal Medicine
DX: H81.10 Benign paroxysmal vertigo, unspecified ear (principal); R51.9 Headache, unspecified; E11.9 Type 2 diabetes mellitus without complications; Z79.899 Other long term (current) drug therapy; Z03.818 Encounter for observation for suspected exposure to other biological agents ruled out
CPT/HCPCS: 70450; 80053; 82947; 83735; 84484; 85025; 85652; 86140; 87637; 93005; 96374; 96375; 99284; 99285; J1885; J2405

== ENCOUNTER → 2025-01-06 19:06 | Outpatient (BNV) | payer OTHER, SELFPAY | PROVIDERS: PCP Internal Medicine; Visit Provider Radiology Diagnostic Radiology | DX: R51.9 Headache, unspecified (principal) | CPT/HCPCS: 70450 ==

== ENCOUNTER → 2025-01-06 19:06 | Outpatient (BNV) | payer OTHER, SELFPAY | PROVIDERS: Emergency Provider Internal Medicine; PCP Internal Medicine; Visit Provider Internal Medicine Cardiovascular Disease | DX: R94.31 Abnormal electrocardiogram [ECG] [EKG] (principal); R42 Dizziness and giddiness | CPT/HCPCS: 93010 ==

== ENCOUNTER 2025-03-09 13:24 | Emergency (ER) | payer OTHER, SELFPAY ==
--- NOTE | ~2025-03-09 | CT_ITS ---
CLINICAL HISTORY: evaluate for metastatic lesions CT head with and without contrast Comparison: CT/SR - CT HEAD/BRAIN WO IV CON - 01/06/25 19:17 EDT Findings: No intra-axial mass, midline shift, hydrocephalus, or acute hemorrhage. No significant atrophy-like change or white matter disease. The visualized paranasal sinuses and mastoid air cells are normal. The orbits are unremarkable. No skull fracture. IMPRESSION: 1. No acute intracranial findings. This document has been electronically signed by: Faraz Rice MD on 03/09/2025 19:10:34
--- NOTE | ~2025-03-09 | CT_ITS ---
CLINICAL HISTORY: evaluate for neoplasm (enlarged lymph nodes) CT soft tissue neck with contrast Comparison: None provided Findings: The visualized intracranial contents are unremarkable. No prevertebral fluid. Epiglottis is within normal limits. Pharyngeal mucosal space and parapharyngeal fat are normal. Salivary glands are within normal limits. No sialoliths. Thyroid gland demonstrates multiple small nodules A few borderline lymph nodes are noted within the upper mediastinum. No consolidation at the lung apices. No acute fractures. Mild degenerative changes within the cervical spine. IMPRESSION: No acute findings. No significant adenopathy involving the soft tissues of the neck. There are small thyroid nodules. An outpatient thyroid ultrasound could be considered. There are a few borderline lymph nodes within the mediastinum This document has been electronically signed by: Faraz Rice MD on 03/09/2025 18:27:06
--- NOTE | ~2025-03-09 | CT_ITS ---
CLINICAL HISTORY: evaluate for enlarged lymph nodes CT chest with contrast Comparison: CT/SD/SR - CT CHEST WITHOUT IV CONTRAST - 12/08/22 20:22 EDT Findings: There is no cardiomegaly or pericardial effusion. There are a few borderline lymph nodes within the mediastinum, significantly smaller than on the comparison study. Currently there are no pathologically enlarged lymph nodes identified. No atherosclerotic disease of the coronary arteries. Lungs exhibit mild airway thickening. No suspicious lesion identified. Calcified granuloma, right lower lobe, benign. The liver appears enlarged and with micronodular contour. The spleen is also enlarged. No acute osseous finding. Impression: There are a few borderline lymph nodes within the mediastinum, significantly improved from the comparison study. No definite pathologically enlarged nodes. Hepatosplenomegaly with the suggestion of a nodular hepatic contour as can be seen in cirrhosis. This document has been electronically signed by: Faraz Rice MD on 03/09/2025 18:45:50
--- NOTE | ~2025-03-09 | CT_ITS ---
CLINICAL HISTORY: evaluate for enlarged lymph nodes CT abdomen and pelvis with contrast Comparison: CT/AZ/SR - CT ABDOMEN PELVIS WITHOUT IV CONTRAST - 06/26/22 19:53 EST Findings: Calcified granuloma again noted in the right lung base. Nodular appearing liver. Hepatosplenomegaly. No discrete hepatic lesion. The gallbladder, adrenal glands and pancreas are unremarkable. Right renal cyst. No obstructive uropathy or suspicious renal lesion. The bladder is distended without focal abnormality. Possible uterine fibroid near the fundus. Adnexa are unremarkable. No bowel obstruction or free air. No definite focal or segmental bowel wall thickening. Mild diverticulosis noted. No acute osseous finding. Impression: Nodular appearing enlarged liver. Correlation for cirrhosis. Splenomegaly. Additional incidental findings. This document has been electronically signed by: Faraz Rice MD on 03/09/2025 19:09:32
--- NOTE | ~2025-03-09 | XR_ITS ---
CLINICAL HISTORY: pain 3 view right wrist Comparison: None provided Findings: Bones intact. No dislocations. Mild degenerative changes are present. No radiopaque foreign body. IMPRESSION: Mild degenerative changes. No acute process. This document has been electronically signed by: Faraz Rice MD on 03/09/2025 17:41:16
[2025-03-09 13:55] VITALS: BP 126/60; PULSE 98; RESP 16; TEMP 36.1; O2SAT 97; BMI 27.0
--- NOTE | 2025-03-09 13:55 | ED.GENADULT ---
HPI - General Adult General Chief complaint: Headache Stated complaint: headache, limited hand mobility Time Seen by Provider: 03/09/25 16:04 Source: patient Mode of arrival: ambulatory Limitations: no limitations History of Present Illness ED Provider: Dr. Oneal [facility] narrative: This is a 59-year-old female history of lymphadenopathy with the abnormal PET scan back in 12/31. Presented hospital today for right arm numbness and paresthesia and pain. Patient stated that radiates from her neck down to her right hand. There was no specific nerve distribution. Patient's has been taking Tylenol without any alleviation. She is also complaining of headache as well. Patient states she did not know the results of her PET scan. She stated that her primary care doctor stated the imaging was fine. She had not had any biopsy performed either to rule out lymphoma. She has no urinary retention, no saddle paresthesia, no bowel incontinence, no weakness in the lower extremities. Denies any trauma. Related Data Previous Rx's ?Medication ?Instructions ?Recorded cephalexin 500 mg tablet 500 mg PO Q6H 10 days #40 tabs 04/01/22 doxycycline hyclate 100 mg capsule 100 mg PO BID 10 days #20 caps 04/01/22 lidocaine 5 % topical patch 1 patch topical DAILY #15 ea 04/29/22 (Lidoderm) cyclobenzaprine 10 mg tablet 10 mg PO Q8H #20 tabs 06/02/22 gabapentin 300 mg capsule 300 mg PO BEDTIME #30 caps 06/02/22 tramadol 50 mg tablet 50 mg PO Q6H PRN pain #20 tabs 06/02/22 albuterol sulfate 2.5 mg/3 mL 2.5 mg (3 mL) inhalation Q4-6H PRN 06/26/22 (0.083 %) solution for nebulization shortness of breath or wheezing #90 mL albuterol sulfate 90 mcg/actuation 2 puff inhalation Q4-6H PRN 06/26/22 aerosol inhaler (ProAir HFA) shortness of breath or wheezing #8.5 grams gabapentin 300 mg capsule 300 mg PO BID #60 caps 06/26/22 tramadol 50 mg tablet 50 mg PO Q6H PRN pain #20 tabs 06/26/22 hydromorphone 2 mg tablet 2 mg PO Q8H PRN pain #14 tabs 07/23/22 (Dilaudid) cetirizine 10 mg tablet (Zyrtec) 10 mg PO DAILY #10 tabs 04/26/23 diphenhydramine HCl 25 mg capsule 25 mg PO TID PRN itching #14 caps 04/26/23 (Benadryl) hydrocortisone 1 % topical cream 1 appl topical BID PRN rash #28.35 04/26/23 (Anti-Itch (hydrocortisone)) grams prednisone 20 mg tablet 40 mg (2 x 20 mg) PO DAILY 5 days 04/26/23 #10 tabs diclofenac sodium 1 % topical gel 2 g topical QID #100 grams 11/22/23 meclizine 25 mg tablet 25 mg PO BID PRN dizziness #14 tabs 02/16/24 meclizine 25 mg tablet 25 mg PO TID PRN dizziness #20 tabs 01/07/25 cyclobenzaprine 10 mg tablet 10 mg PO TID PRN muscle spasm 5 03/09/25 days #20 tabs lidocaine 5 % topical patch 1 patch topical DAILY #15 ea 03/09/25 Allergies Allergy/AdvReac Type Severity Reaction Status Date / Time morphine Allergy Vomiting Verified 03/09/25 13:59 Penicillins Allergy Headache Verified 03/09/25 13:59 Review of Systems Review of Systems: Pertinent review of systems as mentioned in HPI. All other system otherwise negative. [facility] Past Medical History [facility] Narrative: Medical history as mentioned in HPI Medical History Diabetes Social History Social History Alcohol intake: never Smoked in Last 30 Days: No Use of substances other than those prescribed or required for medical reasons: No Advance Directives: Yes Advance Directives on File: Yes Advance Directives Date on File: 12/13/22 Do you have a plan to hurt others: No Plan Physical Exam ED Exam Exam: General: Pleasant, no distress, interacting appropriately Head: Normacephalic, atraumatic ENT: oral mucosa moist, neck supple, no tracheal deviation Cardiovascular: regular rate, regular rhythm, no murmurs, rubbing, gallops Respiratory: CTAB, no wheeze, rales, rhonchi Gastrointestinal: Soft, non distended, non tender, non guarding Extremities: CMS intact in the right upper extremity, there was no obvious mass on the neck area, patient does have pain upon range of motion of the right upper extremity. Equal strength bilaterally. Neurological: Awake and alert, no facial droop noted Skin: Warm and dry Psychiatric: Appropriate mood and thoughts Vital Signs: Vital Signs - 24 hr 03/09/25 13:55 03/09/25 15:19 03/09/25 18:51 Temperature 97.0 F 97.6 F 97.6 F Pulse Rate 98 82 84 Respiratory Rate 16 13 15 Blood Pressure 126/60 134/68 134/77 Pulse Oximetry 97 94 96 Oxygen Delivery Method Room Air Room Air BMI result Body Mass Index 27.0 Course Course Course Narrative: Rapid medical examination performed in triage by Radha Forrester PA-C. Patient is a 59 year old assigned female at presenting to the emergency department with right sided arm pain, right sided leg pain, and back pain. Detailed physical exam and review of systems are deferred to the photo tube assembler. Labs ordered. Patient placed back in the waiting room pending room availability and results. Medications Administered Discontinued Medications Generic Name Dose Route Start Last Admin Trade Name Freq PRN Reason Stop Dose Admin Iohexol 100 ml 03/09/25 17:17 03/09/25 17:17 Iohexol 350 Mg/Ml 100 Ml Infus..Btl IV 03/09/25 17:18 100 ml ONCE ONE Administration Ketorolac Tromethamine 15 mg 03/09/25 16:16 03/09/25 16:28 Ketorolac Tromethamine 15 Mg/Ml Vial IVPUSH 03/09/25 16:17 15 mg ONCE ONE Administration Lidocaine 1 patch 03/09/25 16:16 03/09/25 16:27 Lidocaine 4 % Patch Adh..Patch TRANSDERMA 03/09/25 16:17 1 patch ONCE ONE Administration Protocol Medical Decision Making Medical Decision Making MDM Narrative: 59-year-old female history of lymphadenopathy with abnormal PET scan back in 2022 presented hospital today for right arm numbness and pain. Patient is noted to have some lymph node swelling in her neck on report. There was abnormal FDG activity in the cervical lymph node, right paratracheal prevascular aortopulmonary subcarinal bilateral lymph nodes. With these findings the patient stated that the doctor stated that imaging results was fine. With her new onset of cervical radiculopathy of the right upper extremity we will pursue further imaging to assess for any compression by lymph node or progression of enlarged lymph node. Plan to give patient some IV Toradol and lidocaine patch for right wrist. On reassessment patient stated that her pain has improved. Patient's CT imaging shows thyroid nodules, borderline lymph nodes in the mediastinum. Patient also have incidental finding of possible cirrhosis of liver and splenomegaly. These findings were discussed with the patient. Encouraged her to follow up with her primary care doctor for further workup. Patient appears to be well on my exam. Her symptom has improved. We will plan to discharge patient at this time. I suspect this is cervical radiculopathy. Differential Diagnosis Differential Diagnoses: The differential diagnosis associated with the presentation includes Cervical lymphadenopathy, spinal cord compression, lymphoma progression, muscle spasm of the trapezius Lab Data MDM Lab Attestation statement: I reviewed the patient's lab results. 03/09/25 14:49 03/09/25 14:49 Labs: Lab Results 03/09/25 Range/Units 14:49 WBC 7.4 (4.8-10.8) X10*3/uL RBC 4.23 (4.20-5.50) X10*6/uL Hgb 12.9 (12.0-16.0) g/dl Hct 37.6 (37.0-47.0) % MCV 88.9 (80.0-98.0) fL MCH 30.5 (27.0-33.0) pg MCHC 34.3 (31.0-35.0) g/dl RDW 13.4 (11.0-16.0) % Plt Count 157 L (160-400) X10*3/uL MPV 10.6 (9.4-12.3) fL Immature Gran % (Auto) 0.1 (0.0-0.4) % Neut % (Auto) 65.6 (45-73) % Lymph % (Auto) 24.3 (20-40) % [place] % (Auto) 5.4 (2-11) % Eos % (Auto) 4.1 H (0-4) % Baso % (Auto) 0.5 (0-2) % Lymph # (Auto) 1.8 (1.2-4.9) X10*3/uL [place] # (Auto) 0.4 (0.1-1.2) X10*3/uL Eos # (Auto) 0.3 (0.0-0.4) X10*3/uL Baso # (Auto) 0.0 (0.0-0.2) X10*3/uL Abs Immat Gran (auto) 0.01 (0.00-0.03) X10*3/uL Absolute Neuts (auto) 4.8 (2.0-8.3) x10*3/uL Absolute Nucleated RBC 0.000 (0.0-0.012) X10*3/uL Nucleated RBC % (auto) 0.0 (0.0-0.2) /100WBC Sodium 144 (135-145) mmol/L Potassium 4.2 (3.3-5.1) mmol/L Chloride 108 (96-108) mmol/L Carbon Dioxide 25 (22-29) mmol/L Anion Gap 15 (12-20) BUN 11 (9-16) mg/dL Creatinine 0.59 (0.5-1.4) mg/dL Estim Creat Clear Calc 91.0 Estimated GFR > 60 Random Glucose 118 H (60-115) mg/dL Calcium 9.8 (8.4-10.2) mg/dL Magnesium 1.8 (1.6-2.6) mg/dL Total Bilirubin 0.5 (0.0-1.0) mg/dL AST 61 H (5-31) U/L ALT 65 H (0-31) U/L Alkaline Phosphatase 209 H (39-117) U/L Total Protein 7.4 (6.5-8.0) g/dL Albumin 4.4 (3.5-5.0) g/dL Independent Interpretation I performed an independent interpretation of an: CT Scan Radiology Impression Discussion of test interpretation with radiology: I have reviewed the radiologist's reading. Discharge Plan Discharge Clinical Impression: Cervical radiculopathy Patient Disposition: Home, Self-Care Prescriptions: New cyclobenzaprine 10 mg tablet 10 mg PO TID PRN (Reason: muscle spasm) 5 Days Qty: 20 0RF lidocaine 5 % adhesive patch,medicated 1 patch topical DAILY Qty: 15 0RF Rx Instructions: leave on most painful area for up to 12 hrs No Action cyclobenzaprine 10 mg tablet 10 mg PO Q8H Qty: 20 0RF tramadol 50 mg tablet 50 mg PO Q6H PRN (Reason: pain) Qty: 20 0RF gabapentin 300 mg capsule 300 mg PO BEDTIME Qty: 30 0RF tramadol 50 mg tablet 50 mg PO Q6H PRN (Reason: pain) Qty: 20 0RF gabapentin 300 mg capsule 300 mg PO BID Qty: 60 2RF albuterol sulfate [ProAir HFA] 90 mcg/actuation HFA aerosol inhaler 2 puff inhalation Q4-6H PRN (Reason: shortness of breath or wheezing) Qty: 8.5 0RF albuterol sulfate 2.5 mg /3 mL (0.083 %) solution for nebulization 2.5 mg inhalation Q4-6H PRN (Reason: shortness of breath or wheezing) Qty: 90 0RF hydromorphone [Dilaudid] 2 mg tablet 2 mg PO Q8H PRN (Reason: pain) Qty: 14 0RF Rx Instructions: Partial Fill upon patient request. doxycycline hyclate 100 mg capsule 100 mg PO BID 10 Days Qty: 20 0RF cephalexin 500 mg tablet 500 mg PO Q6H 10 Days Qty: 40 0RF lidocaine [Lidoderm] 5 % adhesive patch,medicated 1 patch topical DAILY Qty: 15 0RF Rx Instructions: leave on most painful area for up to 12 hrs hydrocortisone [Anti-Itch (HC)] 1 % cream 1 appl topical BID PRN (Reason: rash) Qty: 28.35 0RF diphenhydramine HCl [Benadryl] 25 mg capsule 25 mg PO TID PRN (Reason: itching) Qty: 14 0RF cetirizine [Zyrtec] 10 mg tablet 10 mg PO DAILY Qty: 10 0RF prednisone 20 mg tablet 40 mg PO DAILY 5 Days Qty: 10 0RF diclofenac sodium 1 % gel 2 g topical QID Qty: 100 0RF Rx Instructions: apply to left foot meclizine 25 mg tablet 25 mg PO BID PRN (Reason: dizziness) Qty: 14 0RF meclizine 25 mg tablet 25 mg PO TID PRN (Reason: dizziness) Qty: 20 0RF Print Language: Czech
[2025-03-09 14:53] LABS: MANUAL DIFF FLAG NO
[2025-03-09 14:55] LABS: Hematocrit 37.6 % (37.0-47.0); Hemoglobin 12.9 g/dl (12.0-16.0); Imm Gran Abs Auto 0.01 X10*3/uL (0.00-0.03); Imm Gran Pct Auto 0.1 % (0.0-0.4); Lymphocytes Absolute Auto 1.8 X10*3/uL (1.2-4.9); Mean Corpuscular HGB Conc 34.3 g/dl (31.0-35.0); Mean Corpuscular Hemoglobin 30.5 pg (27.0-33.0); Mean Corpuscular Volume 88.9 fL (80.0-98.0); NRBC Abs Auto 0.000 X10*3/uL (0.0-0.012); NRBC Pct Auto 0.0 /100WBC (0.0-0.2); Platelet Count 157 X10*3/uL (160-400); Red Blood Count 4.23 X10*6/uL (4.20-5.50); White Blood Count 7.4 X10*3/uL (4.8-10.8)
[2025-03-09 15:19] VITALS: BP 134/68; PULSE 82; RESP 13; TEMP 36.4; O2SAT 94
[2025-03-09 15:38] LABS: Alanine Aminotransferase 65 U/L (0-31); Albumin Level 4.4 g/dL (3.5-5.0); Alkaline Phosphatase 209 U/L (39-117); Anion Gap 15 (12-20); Aspartate Amino Transferase 61 U/L (5-31); Blood Urea Nitrogen 11 mg/dL (9-16); Calcium 9.8 mg/dL (8.4-10.2); Carbon Dioxide 25 mmol/L (22-29); Chloride 108 mmol/L (96-108); Creatinine Clr Calc Pharmacy 91.0; Estimated Glomerular Filt Rate > 60; Magnesium 1.8 mg/dL (1.6-2.6); Potassium 4.2 mmol/L (3.3-5.1); Sodium 144 mmol/L (135-145); Total Protein 7.4 g/dL (6.5-8.0)
[2025-03-09] MEDS: Lidocaine 4 % Patch ADH..PATCH 1 PATCH TRANSDERMA (16:27)
[2025-03-09] MEDS: iohexoL 350 MG/ML 100 ML INFUS..BTL IV (17:17)
--- NOTE | 2025-03-09 17:29 | PC.NURSE ---
Pt reports good pain relief following lidocaine patch and toradol.
--- OUTSIDE RECORDS SUMMARY | 2025-03-09 18:08 | XMS_ITS | Patient Health Record ---
Author Organization Gavin Faulkner III, MD Address [address] [place] [address] [place] [address] Care Team Providers Care Early Breastfeeding Care Specialist Name Role Phone Laura Julian Primary Care Provider Unavailab Dr. Gavin Molina III Unavailable [phone] Allergies Allergen (clinical drug ingredient) Drug/Non Drug [...] Status W/U Status Risk Notes Problem Fibromyalgia (952063574) Fibromyalgia (M79.7) Active confirmed This diagnosis is documented in the old record at [facility]. Problem Type II diabetes mellitus without complication (586522936) Diabetes (E11.9) Active confirmed Her diabetes is well controlled. Is managed by primary care. Problem Weight loss (380242345) Weight loss (R63.4) Active confirmed She reports losing about 10 pounds since June 2022. She has a poor appetite. Her sister corroborated the history of weight loss. Problem Hypertension (27231102) Hypertension (I10) Active confirmed Her blood pressure was stable today. No change in her regimen was needed. Problem 85693066 Splenomegaly (R16.1) Active confirmed I did not feel a spleen tip on today's examination, likely because of obesity. The spleen was enlarged on the recent CT scan, December 08, 2022. A PET CT scan has been ordered to assess the possibility of lymphoma. Infectious disease remains another possibility. Problem Pancytopenia (292705333) Pancytopenia (D61.818) Active confirmed The spleen is reported to be slightly enlarged. The pancytopenia may be due to hypersplenism . This will be evaluated. Problem 45716015 Penicillin allergy (Z88.0) Active confirmed Penicillin allergy. Has been entered into the record. Problem [id number] Labyrinthitis of both ears (H83.03) Active confirmed She went to the emergency room recently because of dizziness and headaches. An MRI and a CT scan of brain were both unremarkable. This is a chronic problem and current therapy was continued. Problem 76371536 Adult onset diabetes mellitus with ketoacidosis (E11.10) Active confirmed Problem Lymphadenopathy (99066238) Adenopathy (R59.9) Active confirmed She has mediastinal, axillary and upper abdominal adenopathy on the recent CT scan of the chest which was not present in June 2022. One lymph node is reported to be 2 cm in diameter. Her spleen is reported to be enlarged as well. She has been returned to her primary care physician and care team at [facility]. She will not need to come back here. She lives in [place], [place] and receives her care from [facility] healthcare system. She agreed with this today. There was an abnormality on the PET/CT scan in the colon and a colonoscopy has been arranged. Her weight is stable. She is asymptomatic. Problem [id number] Chronic daily headache (R51.9) Active confirmed She was continued on current therapy. Plan Of Treatment No Information Insurance Providers Payer Name Payer Address Payer Phone Subscriber Number Group Number Insured Name Patient Relationship to Insured Coverage Start Date Coverage End Date [address] [place] [phone] [id number] Neema Hampton Self - patient is the insured Medical (General) History Medical History History ICD Code Diabetes E11.9 Hypertension I10 Fibromyalgia M79.7 Hyperlipidemia Labyrinthitis Penicillin allergy Chronic headaches Pancytopenia Splenomegaly Adenopathy Penicillin allergy History of morphine allergy Surgical History Surgery Date(Month/Year)
--- OUTSIDE RECORDS SUMMARY | 2025-03-09 18:08 | XMS_ITS | Clinical Summary ---
Author Organization [facility] Address [address] [place] [address] Care Team Providers Care Manager Of Change Name Role Phone Erin Headley PA-C Primary Care Provider Source Comments PLEASE NOTE, if this patient is a minor, it may be UNLAWFUL to discuss sensitive information that is contained in these records (such as FAMILY PLANNING, MENTAL HEALTH or SUBSTANCE ABUSE) with the minor patient's parent or other person without the patient's specific authorization.[facility] Allergies Active Allergy Reactions Criticality Noted Date Comments Hydrocodone Nausea Only 05/20/2022 Morphine 10/06/2016 Penicillins 10/06/2016 Tramadol Nausea and Vomiting 05/20/2022 Medications blood-glucose meter (FREESTYLE LITE METER) monitoring kitIndications:Un controlled type 2 diabetes mellitus with hyperglycemia ([facility]) as needed for blood glucose monitoring Freestyle lite glucometer, check sugar tid. Dx: E11.65 1 Each 07/25/19 20 Active blood sugar diagnostic (FREESTYLE PRECISION TRACE STRIPS) stripsIndications :Uncontrolled type 2 diabetes mellitus with hyperglycemia ([facility]) Use to test BG with Freestyle Madelin when prompted 1-2X/D UD Dx. E11.65 Freestyle Trace Strips 100 Each 11 12/10/19 22 Active alcohol swabsIndications: Uncontrolled type 2 diabetes mellitus with hyperglycemia ([facility]) Use to clean skin QID DXE11.65 100 Each 12/10/19 22 Active fluoride, sodium, (DENTAGEL) 1.1 % gel 10/06/2021 SF 1.1% MINT GEL [address] [id number] [place], [place] [phone] 56.00 g 3 30 APPLY TO TEETH EVERY NIGHT AT BEDTIME. SPIT OUT EXCESS DO NOT RINSE Surescripts (Fill History, Ambulatory) Authorized by: KERRI ALEXANDRA 10/07/19 22 Active lidocaine (LIDODERM) 5 % patchIndications: Chronic bilateral low back pain with bilateral sciatica Place 1 Patch onto the skin once daily (every 24 hours) For back pain. 30 Patch 2 01/27/20 22 Active FREESTYLE MADELIN 14 DAY READER miscIndications:D iabetes mellitus type 2, insulin dependent DIRECTED 1 Each 02/03/20 22 Active hydroCHLOROthiazi de (HYDRODIURIL) 25 mg tabletIndications :Benign essential HTN TAKE 1 TABLET BY MOUTH EVERY DAY IN THE MORNING FOR BLOOD PRESSURE 30 Tablet 2 02/03/20 22 Active hydrOXYzine HCL (ATARAX) 25 mg tabletIndications :Rash,Anxiety and depression TAKE 1 TABLET BY MOUTH THREE TIMES DAILY NEEDED FOR ANXIETY 60 Tablet 03/03/20 22 Active tamsulosin (FLOMAX) 0.4 mg 24 hr capsule Take 1 Capsule by mouth once daily for 30 days 30 Capsule 05/20/20 22 Active gabapentin (NEURONTIN) 300 mg capsuleIndication s:Chronic bilateral low back pain with bilateral sciatica Take 1 Capsule by mouth 3 (three) times daily For back pain. 60 Capsule 2 06/16/19 23 Active fluconazole (DIFLUCAN) 150 mg tablet 05/20/2022 FLUCONAZOLE 150MG TABLETS [id number] [place], [place] [phone] 1.00 Each 0 1 TAKE 1 TABLET BY MOUTH 1 TIME FOR 1 DOSE Surescripts (Fill History, Ambulatory) Authorized by: ISABEL LITTLEJOHN 05/20/20 22 Active traMADoL (ULTRAM) 50 mg tablet Take 50 mg by mouth every 6 (six) hours as needed for pain Authorized by: DANIELITO FOX 06/03/20 22 Active insulin glargine 100 unit/mL (3 mL)Indications:Un controlled type 2 diabetes mellitus with hyperglycemia ([facility]) Inject 40 Units into the skin nightly at bedtime DXE11.65 *nEW dOSE 45 mL 1 06/19/19 23 Active insulin lispro 100 unit/mL injection penIndications:Un controlled type 2 diabetes mellitus with hyperglycemia ([facility]) Inject SQ BID AC: 70-100; 4 units, 101-150; 6 u, 151-200; 8 u, 201-250; 10u, 251-300; 12units, Mas de 301; 14 units (Max 42u/d) DXE11:65 New SCALE 45 mL 1 06/19/19 23 Active liraglutide (VICTOZA 3-KUNAL) 0.6 mg/0.1 mL (18 mg/3 mL)Indications:Un controlled type 2 diabetes mellitus with hyperglycemia ([facility]) Inject 1.8 mg into the skin every morning DXE11.65 27 mL 1 06/19/19 23 Active MISCELLANEOUS MEDICAL SUPPLY MISCIndications:M ild persistent asthma without complication by miscellaneous route once daily Wheeled walker with seat 1 Each 07/10/19 23 Active MISCELLANEOUS MEDICAL SUPPLY MISCIndications:M ild persistent asthma without complication by miscellaneous route once daily Nebulizer machine and supplies 1 Each 07/10/19 23 Active ibuprofen 800 mg tabletIndications :Dermoid cyst of skin of back Take 1 Tablet by mouth 3 (three) times daily as needed for pain 30 Tablet 07/22/19 23 Active sulfamethoxazole- trimethoprim (BACTRIM DS) 800-160 mg per tabletIndications :Dermoid cyst of skin of back Take 1 Tablet by mouth 2 (two) times daily 14 Tablet 07/22/19 23 Active JARDIANCE 25 mg tabIndications:Un controlled type 2 diabetes mellitus with hyperglycemia ([facility]) TAKE 1 TABLET BY MOUTH EVERY MORNING WITH PLENTY OF FLUIDS THROUGHOUT THE DAY 90 Tablet 1 10/20/19 23 Active BD ALICE 2ND GEN PEN NEEDLE 32 gauge x ndleIndications:U ncontrolled type 2 diabetes mellitus with hyperglycemia ([facility]) USE FIVE TIMES DAILY 200 Each 1 12/21/19 23 Active glimepiride (AMARYL) 2 mg tabletIndications :Uncontrolled type 2 diabetes mellitus with hyperglycemia ([facility]) TAKE 1 TABLET BY MOUTH EVERY DAY WITH BREAKFAST 90 Tablet 1 12/21/19 23 Active FREESTYLE MADELIN 14 DAY SENSOR kitIndications:Un controlled type 2 diabetes mellitus with hyperglycemia ([facility]) USE EVERY 14 DAYS 6 Kit 1 12/23/19 23 Active lancets (FREESTYLE LANCETS) 28 gaugeIndications: Uncontrolled type 2 diabetes mellitus with hyperglycemia ([facility]) check sugar tid. Dx: E11.65 USE TO TEST DIRECTED 100 Each 11 12/30/19 23 Active Active Problems Problem Noted Date Diagnosed Date Renal cyst, right 03/04/2017 Overview (10/06/2020): 04/21/2020: [facility]: US of abd: FINDINGS: Liver: Diffusely echogenic parenchyma. No focal lesion is seen. Main portal vein patent with normal hepatopetal direction of flow. Gallbladder: No gallstones. Normal wall thickness. No pericholecystic fluid. Negative Mujica sign. Biliary Tree: No intrahepatic or extrahepatic bile duct dilation is identified. Common duct: 0.4 cm. Pancreas: No abnormality in the visualized portions of the pancreas. Spleen: Mildly enlarged measuring 14.9 cm. Normal in echotexture. Right kidney: Normal parenchymal echotexture and thickness. No hydronephrosis, stone or suspicious mass. Simple parapelvic cyst measuring 4.1 cm. Left kidney: Normal parenchymal echotexture and thickness. No hydronephrosis, stone or mass. Aorta: Normal caliber and contour. Inferior vena cava: Normal Other: No free fluid IMPRESSION: Echogenic liver likely representing persistent hepatic steatosis. Simple right renal parapelvic cyst. No suspicious renal mass. Mild splenomegaly US at [facility] in 01/2017: fatty infiltration of the liver. Layering sludge in the GB. 3.2 cm right midpole renal cyst. Non-alcoholic fatty liver disease: chronic LFT e levation 01/16/2017 Overview (10/06/2020): 04/21/2020: [facility]: US of abd: FINDINGS: Liver: Diffusely echogenic parenchyma. No focal lesion is seen. Main portal vein patent with normal hepatopetal direction of flow. Gallbladder: No gallstones. Normal wall thickness. No pericholecystic fluid. Negative Mujica sign. Biliary Tree: No intrahepatic or extrahepatic bile duct dilation is identified. Common duct: 0.4 cm. Pancreas: No abnormality in the visualized portions of the pancreas. Spleen: Mildly enlarged measuring 14.9 cm. Normal in echotexture. Right kidney: Normal parenchymal echotexture and thickness. No hydronephrosis, stone or suspicious mass. Simple parapelvic cyst measuring 4.1 cm. Left kidney: Normal parenchymal echotexture and thickness. No hydronephrosis, stone or mass. Aorta: Normal caliber and contour. Inferior vena cava: Normal Other: No free fluid IMPRESSION: Echogenic liver likely representing persistent hepatic steatosis. Simple right renal parapelvic cyst. No suspicious renal mass. Mild splenomegaly US at [facility] in 01/2017: fatty infiltration of the liver. Layering sludge in the GB. 3.2 cm right midpole renal cyst. Elevated LFTS including alk phos and GGT Anxiety and depression 01/11/2017 Chronic bilateral low back pain 01/11/2017 Mixed hyperlipidemia 01/11/2017 Diabetes mellitus without complication 7 Benign essential HTN 11/02/2016 Mild persistent asthma without complication 10/10 Immune to hepatitis A Resolved Problems Problem Noted Date Diagnosed Date Resolved Date Left shoulder tendinitis 03/17/202110/2021 Overview (09/02/2021): 04/12/2021: Left shoulder MRI at [facility]: IMPRESSION: 1. Partial thickness tear of the supraspinatus tendon. 2. Partial thickness tear of the subscapularis musculotendinous junction and diffuse tendinosis of subscapularis tendon. 3. Degenerative change within the glenoid labrum with a full-thickness tear at the approximate 11 o'clock position of the anterior superior labrum. Headache 01/11/2017 05/15/2022 Immunizations Immunization Administration Dates Next Due Flu, Cell Culture based, Pre servative Free, 6m+, Flucelvax 02/25/2020 Flu, Multi Dose 0.5 ML 03/01/2019 Flu, Preservative Free 05/20/2022,2020,03/01/2019,03/07,03/03/2017 Hep B,adult,adjuvanted (HEPLISAV) 03/29/2021 INFLUENZA, SEASONAL, INJECTABLE 02/09/2014 PFIZER COVID VACCINE, PURPLE CAP, 12+ 08/09/2020 ,07/19/2020 PNEUMOCOCCAL POLYSACCHARIDE PPV23 (Pneumovax 23) 08/14/2018 [employer]IO COVID-19 Vac cine Bivalent, (SANTOS [employer] COVID-19 VACCINE BIVALENT, (SANTOS CAP 05/20/2022 TDAP 08/14/2018 ZOSTER VACCINE, RECOMBINANT (SHINGRIX) 9,09/15/2018 Family History Medical History Relation Name Comments Breast cancer Paternal Aunt 1 Dx age 52 Breast cancer Paternal Aunt 2 Dx 40 Breast cancer Paternal Aunt 3 Dx 50 Breast cancer Paternal Aunt 4 Relation Name Status Comments Paternal Aunt 1 Paternal Aunt 2 Paternal Aunt 3 Paternal Aunt 4 Social History Tobacco Use Types Packs/Day Years Used Date Smoking Tobacco: Never Smokeless Tobacco: Never Tobacco Cessation:Counseling Given: Not Answered Alcohol Use Standard Drinks/Week Comments No 0 (1 standard drink = 0.6 oz pur e alcohol) Social Connections Answer Date Recorded Connectedness 0 03/01/2022 Financial Resource Strain Answer Date R ecorded Financial Resource Strain 0 2021 Stress Answer Date Recorded Stress 0 03/01/2022 Physical Activity Answer Date Recorded Physical Activity 0 03/01/2022 Food Insecurity Answer Date Recorded Food 0 03/01/2022 Transportation Needs Answer Date Record ed Transportation 0 03/01/2022 Housing Stability Answer Date Recorded Housing 0 03/01/2022 Safety and Environment Answer Date Paul rded Safety 0 03/01/2022 Utilities Answer Date Recorded Utilities 0 03/01/2022 Employment Answer Date Recorded Stress 0 03/01/2022 Comments No Sex and Gender Information Value Date Recorded Sex Assigned at Female 03/19/2017 8:40 AM PDT Legal Sex Female 9:00 AM PDT Gender Identity Female 03/19/2017 8:40 AM PDT Sexual Orientation Straight 03/19/2017 8: 40 AM PDT Last Filed Vital Signs Vital Sign Reading Time Taken Comments Blood Pressure 120/85 07/22/2022 9:11 AM EST Pulse 84 07/22/2022 9:11 AM EST Temperature 37.2 C (98.9 F) 07/22/2022 9:11 AM EST Respiratory Rate 16 07/22/2022 9:11 AM EST Oxygen Saturation 97% 05/20/2022 9:33 AM EST Inhaled Oxygen Concentration - - Weight 75.8 kg (167 lb) 07/22/2022 9:11 AM EST Height 157.5 cm (5' 2 ) 07/10/2022 2:45 PM EST Body Mass Index 30.54 07/10/2022 2:45 PM EST Plan of Treatment Health Maintenance Due Date Last Done Comments Dental Examination 1965 Diabetes Foot Exam 1965 Imm-Hepatitis A (1 of 2 - Ri sk 2-dose series) 10/08/1983 CT Colonography 2009 FIT/gFOBT 2009 Fecal DNA 2009 Flexible Sigmoidoscopy 2009 Tobacco Screening 04/26/2018 04/26/2017 Anxiety Screening 09/18/2018 09/18/2017 Imm-Pneumococcal 50+ (2 of 2 - PCV) 08/15/2019 08/14/2018 Annual Wellness (Adult): Indicated (All Coverage) 11/19/2019 11/18/2018 Urine Albumin Creatinine Rat io Screening 07/29/2020 07/29/2019, 04/26/2018 Imm-Hepatitis B (2 of 2 - Cp G 2-dose series) 04/26/2021 03/29/2021 Pap Smear 11/24/2021 11/24/2018 Breast Cancer Screening (Mammogram) 07/06/2022 07/06/2021, 09/13/2018 Retinopathy Screening 07/28/2022 07/28/2021 , 09/09/2018 (Managed by Outside Provider), 08/09/2017 (Managed by Outside Provider) Depression Monitoring 08/13/2022 05/15/2022 , 01/26/2022, 01/25/2021, Additional history exists Hemoglobin A1c 09/21/2022 06/23/2022, 100 12/2021, 12/09/2021, Additional history exists Lipid Screening 03/17/2023 03/17/2022, 100 10/2020, 04/05/2020, Additional history exists Serum Creatinine 07/10/2023 07/10/2022, , 10/04/2021, Additional history exists Cervical Cancer Screening 11/25/2023 HPV Screening 11/25/2023 11/24/2018 Pap + HPV 11/25/2023 11/24/2018 Alcohol and Drug Screen 06/11/2024 01/27/20 22, 07/23/2020, 07/25/2019, Additional history exists Qie-KINIB-39 ( season) 2025 05/20/2022, 08/09/2020, 07/19/2020 Imm-Influenza (#1) 2025 05/20/2022, 1 , 02/25/2020, Additional history exists Colonoscopy 11/28/2025 11/29/2015 Colorectal Cancer Screening 11/28/2025 Imm-DTaP/Tdap/Td (2 - Td or Tdap) 08/14/2028 019 Imm-Zoster, Recombinant Completed 02/06/2019, 09/15 HIV Screening Completed 10/04/2021, 02/08/2018 Hepatitis C Screening Completed 10/04/2021 , 07/29/2019, 11/02/2016 Cervical Ablation/Cold-Knife Conization Discontinued Cervical Cryotherapy Discontinued Colposcopy Discontinued Endometrial Biopsy Discontinued Excision/Leep Discontinued HPV Genotyping Discontinued Vaginal Pap Discontinued Vulvoscopy Discontinued Procedures Procedure Name Priority Date/Time Associated Diagnosis Comments COMPREHENSIVE METABOLIC PANEL Routine 07/10/2022 3:26 PM EST Left flank pain Splenomegaly HGBA1C W/MPG Routine 06/23/2022 1:34 PM EST Uncontrolled type 2 diabetes mellitus with hyperglycemia (HCC-CMS) LIPID PANEL Routine 03/17/2022 3:14 PM EDT Uncontrolled type 2 diabetes mellitus with hyperglycemia (HCC-CMS) HIV 1/2 AG & AB W/RFLX (4TH GEN) Routine 10/04/2021 11:12 AM EDT Fatigue, unspecified type Dizziness ACUTE HEPATITIS PANEL W/RFLX Routine 10/04/2021 11:12 AM EDT Fatigue, unspecified type Dizziness DIABETES RETINAL SCREENING 07/28/2021 3:00 AM EST REFERRAL FOR MAMMOGRAM Routine 07/06/2021 3:00 AM EST Encounter for screening mammogram for malignant neoplasm of breast MICROALBUMIN/CREATINI NE RATIO, URINE, RANDOM Routine 07/29/2019 11:01 AM EST Uncontrolled type 2 diabetes mellitus with hyperglycemia (HCC-CMS) PAP SMEAR W/HPV, ABSTRACTED Routine 11/24/2018 10:01 AM EDT COLONOSCOPY Routine 11/29/2015 3:23 PM EDT from Last 3 Months or Most Recently Relevant to Health Maintenance Results * (ABNORMAL) CMP (07/10/2022 3:26 PM EST) GLUCOSE 154(H) 65 - 99 mg/dL [employer] Comment: Fasting reference interval For someone without known diabetes, a glucose value >125 mg/dL indicates that they may have diabetes and this should be confirmed with a follow-up test. UREA NITROGEN (BUN) 13 7 - 25 mg/dL [employer] CREATININE (blood) 0.80 0.50 - 1.03 mg/dL [employer] EGFR 86 > OR = 60 mL/min/1 .73m2 [employer] Comment: The eGFR is based on the CKD-EPI 2020 equation. To calculate the new eGFR from a previous Creatinine or Cystatin C result, go to https://www.kidney.org/professionals/ kdoqi/gfr%5Fcalculator BUN/CREATININE RATIO NOT APPLICABLE 6 - 22 [employer] [facility] SODIUM 138 135 - 146 mmol/L [employer] POTASSIUM 4.3 3.5 - 5.3 mmol/L [employer] CHLORIDE 103 98 - 110 mmol/L [employer] CARBON DIOXIDE 26 20 - 32 mmol/L [employer] CALCIUM 9.4 8.6 - 10.4 mg/dL [employer] PROTEIN, TOTAL 7.3 6.1 - 8.1 g/dL [employer] ALBUMIN 4.3 3.6 - 5.1 g/dL [employer] GLOBULIN 3.0 1.9 - 3.7 g/dL (calc) [employer] ALBUMIN/GLOBUL IN RATIO 1.4 1.0 - 2.5 (calc) [employer] BILIRUBIN, TOTAL 0.6 0.2 - 1.2 mg/dL [employer] ALKALINE PHOSPHATASE 169(H) 37 - 153 U/L [employer] AST 44(H) 10 - 35 U/L [employer] ALT 51(H) 6 - 29 U/L [employer] Blood Blood / Unknown 07/10/2022 3 :26 PM EST 07/10/2022 3:27 PM EST Denae Clement NP LAB - BLOOD DRAW Final Result Performing Organization Address [facility] Co de Phone Number [employer] [address] [address], [employer] [address] [place] [address] (2) [place] [address] * (ABNORMAL) A1C w/MPG Labs (06/23/2022 1:34 PM EST) HEMOGLOBIN A1C 7.5(H) <5.7 % of total Hgb [employer] Comment: For someone without known diabetes, a hemoglobin A1c value of 6.5% or greater indicates that they may have diabetes and this should be confirmed with a follow-up test. For someone with known diabetes, a value <7% indicates that their diabetes is well controlled and a value greater than or equal to 7% indicates suboptimal control. A1c targets should be individualized based on duration of diabetes, age, comorbid conditions, and other considerations. Currently, no consensus exists regarding use of hemoglobin A1c for diagnosis of diabetes for children. MEAN PLASMA GLUCOSE 190 mg/dL (calc) [employer] Blood Blood / Unknown 06/23/2022 1 :34 PM EST 06/23/2022 1:34 PM EST Ines GriffinD LAB - BLOOD DRAW Final Resu lt Performing Organization Address City/[facility]/ZIP Co de Phone Number [employer] [place] [employer] [address] [address], [employer] [address] [place] [address] (NL2) [place] [address] * (ABNORMAL) LIPID PANEL (03/17/2022 3:14 PM EDT) CHOLESTEROL, TOTAL 167 <200 mg/dL [employer] HDL CHOLESTEROL 41(L) > OR = 50 mg/dL [employer] TRIGLYCERIDES 248(H) <150 mg/dL [employer] Comment: If a non-fasting specimen was collected, consider repeat triglyceride testing on a fasting specimen if clinically indicated. Aby et al. J. of Clin. Lipidol. 2015;9:129-169. LDL-CHOLESTEROL 93 99 mg/dL (calc) [employer] Comment: Reference range: <100 Desirable range <100 mg/dL for primary prevention; <70 mg/dL for patients with CHD or diabetic patients with > or = 2 CHD risk factors. LDL-C is now calculated using the Clem calculation, which is a validated novel method providing better accuracy than the Friedewald equation in the estimation of LDL-C. Madhu SS et al. FAN. 2013;310(19): 6945-0915 (http://education.FeedHenry/faq/PFJ797) CHOL/HDLC RATIO 4.1 <5.0 (calc) [employer] NON-HDL CHOLESTEROL 126 <130 mg/dL (calc) [employer] Comment: For patients with diabetes plus 1 major ASCVD risk factor, treating to a non-HDL-C goal of <100 mg/dL (LDL-C of <70 mg/dL) is considered a therapeutic option. Blood Blood / Unknown 03/17/2022 3 :14 PM EDT 03/17/2022 3:14 PM EDT Narrative [employer] - 03/18/2022 1:50 AM EDT PATIENT UNABLE TO VOID; ADVISED TO RETURN FOR COLLECTION. us Ines Baxter PharmD LAB - BLOOD DRAW Final Resu lt [employer] [address] [address], [employer] [address] [address] * HIV 1/2 AG & AB W/RFLX (4TH GEN) (10/04/2021 11:12 AM EDT) HIV AG/AB, 4TH GEN NON-REAC TIVE NON-REAC TIVE [employer] Comment: HIV-1 antigen and HIV-1/HIV-2 antibodies were not detected. There is no laboratory evidence of HIV infection. PLEASE NOTE: This information has been disclosed to you from records whose confidentiality may be protected by state law. If your state requires such protection, then the state law prohibits you from making any further disclosure of the information without the specific written consent of the person to whom it pertains, or as otherwise permitted by law. A general authorization for the release of medical or other information is NOT sufficient for this purpose. For additional information please refer to http://European Batteries.Klooff/faq/IUR432 (This link is being provided for informational/ educational purposes only.) The performance of this assay has not been clinically validated in patients less than 2 years old. Blood Blood / Unknown 10/04/2021 1 1:12 AM EDT 10/04/2021 11:12 AM EDT Shad Cunningham PA-C LAB - BLOOD DRAW Final Result [employer] [address] [place] [address], [employer] [address] [address] * HEPATITIS PANEL W/RFLX (10/04/2021 11:12 AM EDT) HEPATITIS A IGM ANTIBODY NON-REACT GABRIEL NON-REACT GABRIEL [employer] [facility] COMMENT [employer] HEPATITIS B SURFACE ANTIGEN NON-REACT GABRIEL NON-REACT GABRIEL [employer] [facility] HEPATITIS B CORE IGM ANTIBODY NON-REACT GABRIEL NON-REACT GABRIEL [employer] [facility] HEPATITIS C ANTIBODY NON-REACT GABRIEL NON-REACT GABRIEL [employer] [facility] SIGNAL TO CUT-OFF 0.01 <1.00 [employer] Comment: HCV antibody was non-reactive. There is no laboratory evidence of HCV infection. In most cases, no further action is required. However, if recent HCV exposure is suspected, a test for HCV RNA (test code 98200) is suggested. For additional information please refer to http://European Batteries.Klooff/faq/ZYW18s0 (This link is being provided for informational/ educational purposes only.) Blood Blood / Unknown 10/04/2021 1 1:12 AM EDT 10/04/2021 11:12 AM EDT Narrative [employer] - 10/05/2021 5:22 AM EDT For additional information, please refer to http://education.Bokecc.AdTaily.com/faq/RFM447 (This link is being provided for informational/ educational purposes only.) Shad Cunningham PA-C LAB - BLOOD DRAW Final Result [employer] [place] [employer] [address] [address], [employer] [facility] [address] [address] * DIABETES RETINAL SCREENING (07/28/2021 3:00 AM EST) 07/28/2021 3:00 AM EST Angie Hou [employer]ICATION[employer] SPECIALIST PROCEDURES Final Result * REFERRAL FOR MAMMOGRAM SCREENING (07/06/2021 3:00 AM EST) 07/06/2021 3:00 AM EST Angie Hou CENTRAL COMMUNICATIONS SPECIALIST IMG RFL MAMMO Edited Result - Final * MICROALBUMIN/CREATININE RATIO, URINE, RANDOM (07/29/2019 11:01 AM EST) CREATININE, RANDOM URINE 147 mg/dL [facility] MICROALBUMIN, RANDOM 8.6 0.0 - 29.0 mg/L [facility] MICROALB/CRE RATIO RANDOM < 5.8 0.0 - 30.0 mg/G [facility] Urine specimen (specimen) Urine specimen / Unknown 07/29/2019 11:01 AM EST 07/29/2019 6:38 PM EST Narrative [facility] - 07/29/2019 7:58 PM EST [employer], [place] [address] Aco Coordinator - Jeannine Holbrook MD PT ID [id number] ORD# [id number] Angie Hou [employer]ENTRAL COMMUNICATIONS SPECIALIST LAB URINE AMBULATORY Edited Re sult - Final [facility] [address] [place] [address], * PAP SMEAR W/HPV, ABSTRACTED (11/24/2018 10:01 AM EDT) PAP SMEAR INTERPRETATION NORMAL NORMAL [facility] HPV (HUMAN PAPILLOMA) NEGATIVE NEGATIVE [facility] HPV TYPE 16 NEGATIVE NEGATIVE [facility] HPV TYPE 18 NEGATIVE NEGATIVE [facility] Specimen from uterine cervix (specimen) Impressions [facility] - 11/24/2018 10:01 AM EDT ThinPrep Pap Atypical squamous cells of undetermined significance (ascus) Endometrial cells are present HPV Positive Provider [facility] - PATHOLOGY AND CYTOLOGY AMB ULATORY Final Result Performing Organization Address [facility]/ZIP Co de Phone Number [facility] [address] [place] [address], * COLONOSCOPY (11/29/2015 3:23 PM EDT) Impressions Janna Garner MA - 11/29/2015 3:23 PM EDT Colonoscopy impression: No polyps or neoplasms. Moderate sigmoid diverticulosis. Repeat 10 years Provider [facility] PROCEDURES Final Result from Last 3 Months or Most Recently Relevant to Health Maintenance Insurance [employer] ([facility]) Member Subscriber Plan / Payer (Ef fective 2017-Present) Name:Neema Hampton Relation to Subscriber:Self Name:Neema Hampton Payer ID:[id number] Type:Indemnity Address: [address] [place] [id number] Care Teams Manager Of Change Relationship Specialty Start Date End Date Erin Headley PA-C [address] [place] [address] PCP - General Internal Medicine 06/20/23
[2025-03-09 18:51] VITALS: BP 134/77; PULSE 84; RESP 15; TEMP 36.4; O2SAT 96
[2025-03-09 20:21] VITALS: BP 134/77; PULSE 84; RESP 15; TEMP 36.4; O2SAT 96
== END 2025-03-09 20:30 | disposition home or self-care (01) ==
PROVIDERS: Physician Assistant Medical; Emergency Provider Student in an Organized Health Care Education/Training Program; PCP Internal Medicine
DX: M54.12 Radiculopathy, cervical region (principal); R51.9 Headache, unspecified; M54.2 Cervicalgia; R10.2 Pelvic and perineal pain; M25.531 Pain in right wrist; Z79.899 Other long term (current) drug therapy
CPT/HCPCS: 36415; 70470; 71260; 72126; 73110; 74177; 80053; 83735; 85025; 96374; 99284; J1885; Q9967

== ENCOUNTER → 2025-03-09 16:18 | Outpatient (BNV) | payer OTHER, SELFPAY | PROVIDERS: Emergency Provider Student in an Organized Health Care Education/Training Program; PCP Internal Medicine; Visit Provider Radiology Vascular & Interventional Radiology | DX: R16.2 Hepatomegaly with splenomegaly, not elsewhere classified (principal); R51.9 Headache, unspecified; E04.2 Nontoxic multinodular goiter; R59.0 Localized enlarged lymph nodes; M19.031 Primary osteoarthritis, right wrist | CPT/HCPCS: 70470; 71260; 72126; 73110; 74177 ==